=== PATIENT | female | born 1965 | race Caucasian/White ===

== ENCOUNTER 2021-03-25 21:04 | Inpatient (IN) | payer OTHER, SELFPAY ==
--- NOTE | ~2021-03-25 | XR_ITS ---
EXAMINATION: XR chest 1V portable DATE: 04/04/2021 08:58 INDICATION: Shortness of breath. TECHNIQUE: A single frontal view of the chest was obtained. COMPARISON: Chest CT 03/27/2021 FINDINGS: There is a mass involving right perihilar region and right lung upper lobe. There is mild s carring at left lung apex. No pleural effusion or pneumothorax. The heart size is normal. IMPRESSION: 1. Large mass involving right perihilar region and right lung upper lobe, consistent with primary bro nchogenic carcinoma. Ultrasound-guided core needle biopsy of a right supraclavicular lymph node is re commended for diagnosis. Reviewed, dictated and finalized at location A. PASTER IMPRESSION: 1. Large mass involving right perihilar region and right lung upper lobe, consi stent with primary bronchogenic carcinoma. Ultrasound-guided core needle biopsy of a right supraclavicular lymph node is recommended for diagnosis.
--- NOTE | ~2021-03-25 | CT_ITS ---
EXAMINATION: CT chest abdomen pelvis w con EXAM DATE: 03/27/2021 16:23 INDICATION: abnormal chest finding pna vs malignancy abnormal chest x ray. SOB w/ pressure/pain in ce ntral chest/abd . TECHNIQUE: Spiral CT of the chest, abdomen and pelvis was performed following intravenous injection o f 100 mL Omnipaque 350. Axial, coronal and sagittal images chest, abdomen and pelvis were reviewed. Coronal maximum intensity pixel images of chest reviewed. The dose-length product (DLP) for this ex amination was 1534.69 mGy-cm. The exposure was tailored according to patient size (auto mA exposure control), and iterative reconstruction (ASIR) was used as additional dose reduction technique. Compar fish is made to prior examination from 03/25/2021 CT abdomen noncontrast study, chest x-ray 03/26/2021. FINDINGS: CHEST: There is right upper lobe malignancy with invasion of the mediastinum, metastatic mediastinal and right hilar lymphadenopathy. There is mass effect on the SVC and brachiocephalic veins without c omplete occlusion. Invasion of these structures is also possible. Heart normal in size. Faint bilater al peripheral groundglass opacities, nonspecific pneumonitis, possibly COVID 19 pneumonia. Other acut e possibilities include influenza, pulmonary edema or hemorrhage. Some chronic processes that can hav e this appearance include cryptogenic organizing pneumonia, desquamative interstitial pneumonia, nons pecific interstitial pneumonia, drug toxicity, connective tissue disease. Please clinically correlate and test as appropriate. No pleural or pericardial effusions. ABDOMEN PELVIS: The liver, spleen, adrenal glands and pancreas are unremarkable. Gallbladder is unre markable. No biliary obstruction. Punctate left nephrolithiasis.Portal and splenic veins are patent. Kidneys enhance symmetrically. There is no hydronephrosis. Small uterus. The bladder is collaps ed with Benton catheter balloon anchor inside. There is no retroperitoneal or pelvic lymphadenopathy. There is mild to moderate scattered arteriosclerotic disease. The appendix is normal. The stomach and small bowel are unremarkable. There is expected amount of c olonic stool. No free intraperitoneal gas. There are no osteoblastic or osteolytic lesions identi fied. IMPRESSION: 1. Right suprahilar malignancy with mediastinal invasion, mediastinal and right hilar lymphadenopath y, mass effect or possibly invasion of the SVC and brachiocephalic veins. 2. Small peripheral regions of groundglass opacity, nonspecific pneumonitis. Possible COVID pneumoni a. 3. Punctate nephrolithiasis. Reviewed, dictated and finalized at location A. PROCESS MILLER HEAD ASSISTANT IMPRESSION: 1. Right suprahilar malignancy with mediastinal invasion, mediastinal and righ t hilar lymphadenopathy, mass effect or possibly invasion of the SVC and brachi ocephalic veins. 2. Small peripheral regions of groundglass opacity, nonspecific pneumonitis. P ossible COVID pneumonia. 3. Punctate nephrolithiasis.
--- NOTE | ~2021-03-25 | XR_ITS ---
EXAMINATION: XR chest 1V portable DATE: 03/26/2021 00:19 INDICATION: Shortness of breath TECHNIQUE: frontal view of the chest was obtained. COMPARISON: None FINDINGS: Large region of consolidation in the right mid to upper lung zone. No pleural effusion or pneumothora x. The cardiomediastinal silhouette is normal. IMPRESSION: 1. Large region of consolidation in the right mid to upper lung zone with differential including pneu monia, malignancy, right upper lobar collapse or some combination thereof. Consider either contrast-e nhanced CT for further evaluation or short interval radiographic follow-up to document resolution. Reviewed, dictated and finalized at location A. RVISOR ELECTRON[employer] PROCESSING IMPRESSION: 1. Large region of consolidation in the right mid to upper lung zone with diffe rential including pneumonia, malignancy, right upper lobar collapse or some com bination thereof. Consider either contrast-enhanced CT for further evaluation o r short interval radiographic follow-up to document resolution.
--- NOTE | ~2021-03-25 | NM_ITS ---
EXAMINATION: NM hepatobiliary w pharm DATE: 04/03/2021 12:02 INDICATION: Right upper quadrant abdominal pain. COMPARISON: CT abdomen and pelvis 03/27/2021 TECHNIQUE: 5.5 mCi Tc-99m mebrofenin (Choletec) was administered intravenously. Scintigraphic images of the abdomen were obtained for one hour. Then, 1.6 mcg sincalide (Kinevac) IV was administered, an d imaging was continued for 30 minutes. FINDINGS: There is normal clearance of radiotracer from the blood pool. There is homogeneous tracer u ptake by the liver. Activity progresses to the bowel and gallbladder. Gallbladder ejection fraction (GBEF) was 87%. Note that most patients with gallbladder dysfunction have GBEF < 35%, which overlaps with the broad normal range of 10-90%. IMPRESSION: 1. Normal hepatobiliary scintigraphy. Reviewed, dictated and finalized at location A. TING COAL MINER
--- NOTE | ~2021-03-25 | CT_ITS ---
EXAMINATION: CT abdomen pelvis wo con DATE: 03/25/2021 23:29 INDICATION: Abdominal pain. TECHNIQUE: Computed tomography (CT) of the abdomen and pelvis was performed without intravenous contr ast. Automated exposure control and iterative reconstruction technique were employed. The dose-length product was 1161.91 mGy-cm. COMPARISON: None FINDINGS: Lung bases are clear. Heart size is normal. No pericardial or pleural effusion. Mild diffuse hepatic steatosis. Gallbladder, spleen, pancreas and bilateral adrenal glands are normal. Common bile duct is mildly dilated measuring up to 12 mm in maximal diameter. No evident obstructing stone or mass or in trahepatic biliary ductal dilation. 1 mm nonobstructing stone at a lower pole calyx of the right kidn ey and a few stones, the largest measuring up to 2 mm at the lower pole calyces of the left kidney. N o hydronephrosis or stones seen along the normal bilateral ureters. Bladder is normal. Atrophic uteru s and bilateral adnexa are unremarkable. Bowels including the appendix are normal. No free intraperit weaver gas or fluid. No pathologically enlarged abdominal or pelvic lymphadenopathy. IMPRESSION: 1. Bilateral nonobstructing nephrolithiasis. 2. Dilation of the common bile duct to 12 mm without evident obstructing stone or mass or intrahepati c biliary ductal dilation. Correlate with liver function tests and if clinically indicated could cons ider MRCP for further evaluation. Reviewed, dictated and finalized at location A. ED GOODS CONTROLS OPERATOR IMPRESSION: 1. Bilateral nonobstructing nephrolithiasis. 2. Dilation of the common bile duct to 12 mm without evident obstructing stone or mass or intrahepatic biliary ductal dilation. Correlate with liver function tests and if clinically indicated could consider MRCP for further evaluation.
[2021-03-25 21:25] VITALS: BP 138/82; PULSE 118; RESP 22; TEMP 37; O2SAT 96
--- NOTE | 2021-03-25 21:30 | ECG_ITS ---
Measurements Intervals [place] Rate: 121 P: 58 TN: 147 QRS: 55 QRSD: 78 T: 61 QT: 350 QTc: 497 Interpretive Statements SINUS TACHYCARDIA BASELINE ARTIFACT- I, II, III, AVR, AVL, AVF, V1-V6 ABNORMAL ECG Electronically Signed On 03-26-2021 7:13:36 SWISS MACHINIST by Sohail Butler D.O.
[2021-03-25] MEDS: MORPHINE SULFATE (*CRX) 4 MG/ML INJ IV PUSH (21:44)
--- NOTE | 2021-03-25 22:27 | ED.GENADULT ---
HPI - General Adult General Chief complaint: Abdominal Pain Stated complaint: amb Source: patient and EMS Mode of arrival: EMS Limitations: no limitations History of Present Illness HPI narrative: this is a 55-year-old female [facility] presents via [facility] with increased abdominal pain with distention with history of hepatitis-C, with some diarrhea currently no fever chills no chest pain no shortness of breath. Onset (ago): hour(s) Severity: moderate Severity scale (1-10): 8 Quality: aching Pain Consistency: constant Relieving factors: none Exacerbating factors: none Associated symptoms: nausea/vomiting Related Data Allergies Allergy/AdvReac Type Severity Reaction Status Date / Time No Known Allergies Allergy Unverified 04/25/12 17:09 Review of Systems Review of Systems: All systems reviewed & are unremarkable except as noted in HPI and below PMFSH Past Medical History Medical History Hepatitis C Exam Const: General: no acute distress and alert Orientation/consciousness: patient oriented x3 HENMT: Head: normal to inspection Eyes: Conjunctivae: conjunctivae normal Pupils: Equal, round and reactive pupils present Neck: Neck: normal visual inspection and no lymphadenopathy Chest: Chest palpation & inspection: normal inspection of the chest Resp: Effort & Inspection: normal respiratory effort Auscultation: clear to auscultation bilaterally Cardio: Rate: regular rate and tachycardic GI: Inspection: distended GI Palp: Yes Tenderness to palpation present (GI) ( diffusely) and Yes Guarding due to palpation present (GI) : General: Yes no CVA tenderness Urinary Catheter: Urinary Catheter: patent and draining Back/Spine/Pelvis: Back: no CVA tenderness Skin: General skin exam: normal color Rashes: no rashes Neuro: General: patient oriented x3, moves all extremities, no meningeal signs and no focal motor deficits Extrem: General: normal to inspection and no pedal edema Psych: Mental Status: mental status grossly normal Affect: normal affect Course Course Emergency Course: CT scan labs were reviewed with patient Vital Signs Vital signs: Vital Signs Temperature 37.0 C 03/25/21 21:25 Pulse Rate 118 H 03/25/21 21:25 Respiratory Rate 22 H 03/25/21 21:25 Blood Pressure 138/82 03/25/21 21:25 Pulse Oximetry 96 03/25/21 21:25 Temperature 37.0 C 03/25/21 21:25 Pulse Rate 118 H 03/25/21 21:25 Respiratory Rate 22 H 03/25/21 21:25 Blood Pressure 138/82 03/25/21 21:25 Pulse Oximetry 96 03/25/21 21:25 Medical Decision Making Vital Signs Vital Signs: Vital Signs Temperature 37.0 C 03/25/21 21:25 Pulse Rate 118 H 03/25/21 21:25 Respiratory Rate 22 H 03/25/21 21:25 Blood Pressure 138/82 03/25/21 21:25 Pulse Oximetry 96 03/25/21 21:25 Temperature 37.0 C 03/25/21 21:25 Pulse Rate 118 H 03/25/21 21:25 Respiratory Rate 22 H 03/25/21 21:25 Blood Pressure 138/82 03/25/21 21:25 Pulse Oximetry 96 03/25/21 21:25 Critical Care Time Critical Care Time Critical Care Time: No Discharge Plan Discharge Clinical Impression: Acute hypokalemia Pneumonia Qualifiers: Pneumonia type: due to unspecified organism Laterality: right Lung location: middle lobe of lung Qualified Code(s): J18.9 - Pneumonia, unspecified organism Patient Disposition: Acute Care Hospital Condition: Guarded Prognosis Additional Instructions: impression pneumonia/ hypokalemia /abdominal pain Disposition admission acute hospital started on Condition guarded Follow-up/Referrals: Ciara,JERO Bliss [Primary Care Provider] - Time of Disposition: 00:55
[2021-03-25 22:39] LABS: Basophils Absolute Auto 0.01 K/mm3 (0.00-0.10); Basophils Percent Auto 0.1 % (0.0-1.0); Hematocrit 44.2 % (35.0-49.0); Hemoglobin 13.9 g/dL (12.0-15.0); Immature Granulocyte Absolute 0.03 K/mm3 (0.00-0.00); Immature Granulocyte Percent A 0.3 % (0.0-0.0); Lymphocytes Absolute Auto 0.28 K/mm3 (1.10-4.50); Mean Corpuscular HGB Conc 31.4 g/dL (32.0-36.0); Mean Corpuscular Hemoglobin 29.6 pg (27.0-31.0); Mean Corpuscular Volume 94.2 fL (78.0-102.0); Mean Platelet Volume 9.5 fl (9.2-11.8); Monocytes Absolute Auto 0.07 K/mm3 (0.10-0.90); Monocytes Percent Auto 0.7 % (2.0-11.0); Neutrophils Absolute Auto 9.1 K/mm3 (1.7-7.2); Neutrophils Percent Auto 95.9 % (50.0-70.0); Platelet Count Result 284 K/mm3 (150-420); Red Blood Count 4.69 M/mm3 (4.20-5.40); Red Cell Distribution Width 13.1 % (11.6-14.4); White Blood Count 9.5 K/mm3 (4.8-10.8)
[2021-03-25 22:50] LABS: Partial Thromboplastin Time 23.2 SEC (23.90-30.70); Prothrombin Time 10.7 Seconds (9.50-12.10)
--- NOTE | 2021-03-25 22:51 | PC.NURSE ---
Pt resting comfortable on stretcher. reports pain now a 5 on a 1-10 scale. Still unable to give urine sample. To bathroom at this time to try again.
[2021-03-25 22:58] LABS: Lactic Acid Reflex 1.7 mmol/L (0.4-2.0)
[2021-03-25 23:07] LABS: Alanine Aminotransferase 226 U/L (14-59); Albumin Level 3.8 g/dL (3.4-5.0); Alkaline Phosphatase 201 U/L (46-116); Ammonia 19 umol/L (11-32); Anion Gap 12 mmol/L (8-16); Aspartate Amino Transferase 249 U/L (15-37); Bilirubin,Total 1.2 mg/dL (0.00-1.00); Blood Urea Nitrogen 23 mg/dL (7-18); Calcium 10.1 mg/dL (8.5-10.1); Carbon Dioxide 32 mmol/L (21-32); Chloride 96 mmol/L (98-108); Estimated CRCL calculation 54 ml/min; Estimated Glomerular Filt Rate 57; Glucose 155 mg/dL (70-99); Lipase 232 U/L (73-393); Osmolality Calculated 296 mOsm/kg (285-295); Potassium 2.6 mmol/L (3.5-5.1); Sodium 140 mmol/L (136-145); Total Protein 8.8 g/dL (6.4-8.2); Troponin I 4.6 ng/L (0.00-60.4)
--- NOTE | 2021-03-25 23:15 | PC.NURSE ---
Labs back. Pt take to Be Spotted Tech Per W/C.
[2021-03-26] VITALS (18 sets, daily range): BP systolic 106–159; BP diastolic 57–82; PULSE 85–130; RESP 18–26; TEMP 36.1–37.6; O2SAT 89–98; BMI 33.8
[2021-03-26] MEDS: methylPREDNISolone SOD SUCC 125 MG VIAL IV PUSH (00:27)
[2021-03-26] MEDS: KCL 20 MEQ/SW 100 ML 100 ML 50 MEQ IVPB ×3 (00:30→15:20)
--- NOTE | 2021-03-26 00:34 | PC.NURSE ---
K Uli started after Pt placed on Monitor. Pt ST with no ectopics. YOVANI rubin to observe pt breathing pattern. Pt Labored Grunting resp. Ling Sounds diminished on the Rt. N.O. recieved.
--- NOTE | 2021-03-26 00:54 | PC.NURSE ---
Pt to the bathroom for the fifth time. Nothing but dribbles. Bladder scanner was used. Noted 630ml in bladder after five trips. YOVANI Hyde advised order to place [facility] recieved.
[2021-03-26 01:14] LABS: Add Urine Microscopic? YES; Appearance Urine Clear (Clear); Bilirubin Urine 1+ (Negative); Blood Urine Negative (Negative); Color Urine Yellow (Yellow); Glucose Urine UA Negative (Negative); Ketones Urine Negative (Negative); Leukocyte Esterase Ur Negative (Negative); Nitrate Urine Negative (Negative); Protein Urine Negative (Negative); Specific Grav Ur 1.015 (1.010-1.020)
[2021-03-26 01:21] LABS: Amphetamine Screen Urine Negative (Negative); Barbiturate Screen Urine Negative (Negative); Benzodiazepines Screen Urine Negative (Negative); Cannabinoid Screen Urine Negative (Negative); Cocaine Screen Urine Negative (Negative); Methadone Screen Urine Negative (Negative); Opiate Screen Urine Positive (Negative); Phencyclidine Screen Urine Negative (Negative); RBC Urine None seen /hpf (0-2); Squamous Epithelial Cell Urine Rare /hpf (Few); WBC Urine None seen /hpf (0-3)
[2021-03-26 01:24] LABS: SARS-CoV-2 RNA PCR Negative (Negative)
[2021-03-26] MEDS: IPRATROPIUM 0.5 MG/ALBUTEROL SULFATE 2.5 MG AMPUL.NEB 3 ML INHALATION ×5 (01:27→23:12)
--- NOTE | 2021-03-26 01:48 | PC.NURSE ---
Pt report called to Michelle GARCIA. Pt sleeping on stretcher 0 Sor S of adverse reaction.
[2021-03-26] MEDS: SODIUM CHLORIDE 0.9% IV 1,000 ML 100 ML IV CONT ×2 (02:33→13:20)
--- NOTE | 2021-03-26 02:43 | ADMGEN ---
This patient, Gogo Martell, was admitted to 2nd Floor Room 207-2. Patient oriented to hospital policies and general routines including ID bracelet, bed and alarms, visiting hours, pain management, procedures, bathroom and other care routines, personal items, smoking policy, room service/diet, and visiting hours. Information on how to activate the Rapid Response Team has been discussed. Patient/Family are encouraged to report perceived risks to care and to ask questions if they do not understand what they are told or what they should do.
[2021-03-26] MEDS: IBUPROFEN 400 MG TABLET 800 MG PO (05:25)
[2021-03-26] MEDS: LEVOTHYROXINE SODIUM 25 MCG TABLET PO (05:26)
[2021-03-26] MEDS: LEVOTHYROXINE SODIUM 100 MCG TABLET PO (05:27)
[2021-03-26] MEDS: methylPREDNISolone SOD SUCC 40 MG VIAL IV PUSH ×3 (05:28→18:09)
[2021-03-26 06:19] LABS: Basophils Absolute Auto 0.01 K/mm3 (0.00-0.10); Basophils Percent Auto 0.1 % (0.0-1.0); Hematocrit 37.7 % (35.0-49.0); Hemoglobin 12.1 g/dL (12.0-15.0); Immature Granulocyte Absolute 0.05 K/mm3 (0.00-0.00); Immature Granulocyte Percent A 0.4 % (0.0-0.0); Lymphocytes Absolute Auto 0.28 K/mm3 (1.10-4.50); Lymphocytes Percent Auto 2.4 % (18.0-42.0); Mean Corpuscular HGB Conc 32.1 g/dL (32.0-36.0); Mean Corpuscular Volume 93.3 fL (78.0-102.0); Mean Platelet Volume 9.9 fl (9.2-11.8); Monocytes Absolute Auto 0.42 K/mm3 (0.10-0.90); Monocytes Percent Auto 3.5 % (2.0-11.0); Neutrophils Absolute Auto 11.1 K/mm3 (1.7-7.2); Neutrophils Percent Auto 93.6 % (50.0-70.0); Platelet Count Result 235 K/mm3 (150-420); Red Blood Count 4.04 M/mm3 (4.20-5.40); Red Cell Distribution Width 13.2 % (11.6-14.4); White Blood Count 11.9 K/mm3 (4.8-10.8)
[2021-03-26 07:11] LABS: Alanine Aminotransferase 238 U/L (14-59); Albumin Level 3.1 g/dL (3.4-5.0); Alkaline Phosphatase 171 U/L (46-116); Anion Gap 10 mmol/L (8-16); Aspartate Amino Transferase 226 U/L (15-37); Bilirubin,Total 1.7 mg/dL (0.00-1.00); Blood Urea Nitrogen 22 mg/dL (7-18); Calcium 9.5 mg/dL (8.5-10.1); Carbon Dioxide 30 mmol/L (21-32); Chloride 97 mmol/L (98-108); Estimated CRCL calculation 50 ml/min; Estimated Glomerular Filt Rate 51; Glucose 119 mg/dL (70-99); Osmolality Calculated 288 mOsm/kg (285-295); Sodium 137 mmol/L (136-145); Total Protein 7.6 g/dL (6.4-8.2)
[2021-03-26 07:24] LABS: Potassium 2.4 mmol/L (3.5-5.1)
[2021-03-26] MEDS: FLUTICASONE PROPIONATE 0.05% NA SPR 16 GM BTL (*BKC) 2 SPRAY NASAL (09:59)
[2021-03-26] MEDS: NICOTINE (*PBKC) 21 MG PATCH 1 PATCH TRANSDERM (09:59)
[2021-03-26] MEDS: metOLazone 2.5 MG TABLET 5 MG PO (10:00)
[2021-03-26] MEDS: GABAPENTIN 300 MG CAPSULE PO ×3 (10:00→18:10)
[2021-03-26] MEDS: LORATADINE 10 MG TABLET PO (10:00)
[2021-03-26] MEDS: CHOLECALCIFEROL 1,000 UNITS TABLET 2000 UNITS PO (10:00)
[2021-03-26] MEDS: POTASSIUM CHLORIDE 20 MEQ TABLET 40 MEQ PO ×3 (10:00→23:33)
[2021-03-26] MEDS: ENOXAPARIN 40 MG/0.4 ML SYRINGE SUB-Q (10:01)
[2021-03-26] MEDS: clonazePAM (*CRX) 0.5 MG TABLET 1 MG PO ×2 (10:01→18:10)
[2021-03-26] MEDS: PANTOPRAZOLE 40 MG TABLET PO (10:01)
[2021-03-26] MEDS: FUROSEMIDE 40 MG TABLET PO (10:01)
[2021-03-26] MEDS: FLUoxetine HCL 20 MG CAPSULE 40 MG PO (10:01)
[2021-03-26] MEDS: DIVALPROEX SODIUM ER 500 MG TAB.24H PO ×2 (10:01→23:30)
--- NOTE | 2021-03-26 12:59 | PM.IMHP ---
H&P: HPI History of Present Illness Date/Time: 03/26/21 12:59 this is a 55-year-old female presented to our emergency department with complaints of abdominal pain. Patient has a past medical history of hep C. Patient is a poor historian it is unclear where her pain is she is pointing right been near her nipple line but describing it as her chest she does note that her generalized abdominal area is tender she denies any diarrhea. Her abdomen is distended she notes this is not new for her. Blood pressure 115/57, 108, 18, 97.7, 89% with 2 L nasal cannula, WBCs 9.5, hemoglobin 13.9, hematocrit 44.2, platelets 284, sodium 140, potassium 2.6, BUN 23, creatinine 1.0, glucose 155, total bili 1.2, AST 249, ALT 226, ammonia 19, troponin 4.6, UA positive for bili, toxicology positive for opiates, chest x-ray pneumonia CT of the abdomen indicates Bilateral nonobstructing nephrolithiasis. Patient be admitted for pneumonia and hyperkalemia <MICHAEL Crystal - Last Filed: 03/26/21 13:53> Chief Complaint: Abdominal pain <MICHAEL Crystal - Last Filed: 03/26/21 13:53> Review of Systems Review of Systems: A 14 organ system Review of Systems was performed and pertinent positives included in the HPI, otherwise remaining ROS is negative. <MICHAEL Crystal - Last Filed: 03/26/21 13:53> [facility] Past Medical History Medical History: Medical History Hepatitis C <MICHAEL Crystal - Last Filed: 03/26/21 13:53> Family History Family History: Family History (Updated 03/26/21 @ 13:37 by MICHAEL Crystal) Other Family history non-contributory <MICHAEL Crystal - Last Filed: 03/26/21 13:53> Social History Social History: Social History Smoking packs per day: 0.5 Smoking cigarettes per day: 10.0 Smoking status: Current every day smoker Tobacco type: cigarettes Alcohol intake: never Substance use: former Spiritual care concerns: No <Gene Akhtar, DAVID-Bradley - Last Filed: 03/26/21 13:53> Meds Home Medications and Allergies Home medications: Home Medications Medication Instructions Recorded Confirmed Type PNV,calcium [id number] acid 1 tablet PO DAILY 03/26/21 03/26/21 History [ Vitamin Plus Low Iron] acetaminophen 1,000 mg PO TID 03/26/21 03/26/21 History allopurinol 100 mg PO BID 03/26/21 03/26/21 History artificial tears solution 1 drp OPHTHALMIC (EYE) Q6-8H PRN 03/26/21 03/26/21 History bismuth subsalicylate [Stomach See Rx Instructions .ROUTE 03/26/21 03/26/21 History Relief] .COMPLEX PRN cetirizine 10 mg PO DAILY 03/26/21 03/26/21 History cholecalciferol (vitamin D3) 50 mcg PO DAILY 03/26/21 03/26/21 History [Vitamin D3] clonazepam 1 mg PO BID 03/26/21 03/26/21 History cyclobenzaprine 10 mg PO TID PRN 03/26/21 03/26/21 History diphenhydramine HCl [Allergy 50 mg PO HS PRN 03/26/21 03/26/21 History (diphenhydramine)] divalproex 500 mg PO BID 03/26/21 03/26/21 History fluoxetine 40 mg PO DAILY 03/26/21 03/26/21 History fluticasone propionate 2 spray INTRANASAL DAILY 03/26/21 03/26/21 History furosemide 40 mg PO DAILY 03/26/21 03/26/21 History gabapentin 300 mg PO TID 03/26/21 03/26/21 History ibuprofen 800 mg PO TID PRN 03/26/21 03/26/21 History levothyroxine 125 mcg PO DAILY 03/26/21 03/26/21 History loperamide [Imodium] 2 mg PO Q4H PRN 03/26/21 03/26/21 History magnesium hydroxide [Milk of 15 ml PO DAILY PRN 03/26/21 03/26/21 History Magnesia] melatonin 10 mg PO HS PRN 03/26/21 03/26/21 History metolazone 5 mg PO DAILY 03/26/21 03/26/21 History nicotine 1 patch TRANSDERMAL DAILY 03/26/21 03/26/21 History omeprazole 20 mg PO DAILY 03/26/21 03/26/21 History potassium chloride 40 meq PO BID 03/26/21 03/26/21 History sennosides [senna] 8.6 mg PO DAILY PRN 03/26/21 03/26/21 History simethicone 80 mg PO Q6-8H PRN 03/26/21
[2021-03-26] MEDS: ACETAMINOPHEN 325 MG TABLET 650 MG PO (13:19)
[2021-03-26] MEDS: HYDROcodone/acetaminophen (*CRX) 10-325 MG TABLET 1 TAB PO (18:09)
--- NOTE | 2021-03-26 18:30 | PC.NURSE ---
Patient brother Aki called per pt request to speak with him, no answer, messaged left.
[2021-03-26 20:41] LABS: Amphetamine Screen Urine Negative (Negative); Barbiturate Screen Urine Negative (Negative); Benzodiazepines Screen Urine Negative (Negative); Cannabinoid Screen Urine Negative (Negative); Cocaine Screen Urine Negative (Negative); Methadone Screen Urine Negative (Negative); Opiate Screen Urine Positive (Negative); Phencyclidine Screen Urine Negative (Negative)
[2021-03-27] VITALS (12 sets, daily range): BP systolic 99–123; BP diastolic 58–95; PULSE 58–118; RESP 18–89; TEMP 36–36.2; O2SAT 6–98
[2021-03-27] MEDS: methylPREDNISolone SOD SUCC 40 MG VIAL IV PUSH ×3 (00:11→12:13)
[2021-03-27] MEDS: HYDROcodone/acetaminophen (*CRX) 10-325 MG TABLET 1 TAB PO ×4 (00:12→18:02)
--- NOTE | 2021-03-27 01:42 | PC.NURSE ---
0142--Patient is currently sleeping. Unable to assess pain at this time.
[2021-03-27] MEDS: SODIUM CHLORIDE 0.9% IV 1,000 ML 100 ML IV CONT ×2 (02:04→15:57)
[2021-03-27] MEDS: LEVOTHYROXINE SODIUM 100 MCG TABLET PO (05:33)
[2021-03-27] MEDS: LEVOTHYROXINE SODIUM 25 MCG TABLET PO (05:33)
[2021-03-27] MEDS: IPRATROPIUM 0.5 MG/ALBUTEROL SULFATE 2.5 MG AMPUL.NEB 3 ML INHALATION ×3 (06:09→18:41)
[2021-03-27 06:17] LABS: Hematocrit 33.8 % (35.0-49.0); Hemoglobin 10.7 g/dL (12.0-15.0); Mean Corpuscular HGB Conc 31.7 g/dL (32.0-36.0); Mean Corpuscular Hemoglobin 29.9 pg (27.0-31.0); Mean Corpuscular Volume 94.4 fL (78.0-102.0); Platelet Count Result 218 K/mm3 (150-420); Red Blood Count 3.58 M/mm3 (4.20-5.40); Red Cell Distribution Width 13.3 % (11.6-14.4); White Blood Count 14.7 K/mm3 (4.8-10.8)
[2021-03-27 06:31] LABS: Hemoglobin A1C 5.8 % (<5.7)
[2021-03-27 07:09] LABS: Alanine Aminotransferase 324 U/L (14-59); Albumin Level 2.5 g/dL (3.4-5.0); Alkaline Phosphatase 160 U/L (46-116); Anion Gap 10 mmol/L (8-16); Aspartate Amino Transferase 177 U/L (15-37); Bilirubin,Total 0.7 mg/dL (0.00-1.00); Blood Urea Nitrogen 27 mg/dL (7-18); Calcium 8.9 mg/dL (8.5-10.1); Carbon Dioxide 27 mmol/L (21-32); Chloride 102 mmol/L (98-108); Estimated CRCL calculation 61 ml/min; Estimated Glomerular Filt Rate > 60; Folic Acid 13.4 ng/mL (8.6->20); Glucose 154 mg/dL (70-99); Magnesium 2.1 mg/dL (1.8-2.4); Osmolality Calculated 296 mOsm/kg (285-295); Potassium 3.1 mmol/L (3.5-5.1); Sodium 139 mmol/L (136-145); Total Protein 6.7 g/dL (6.4-8.2); Vitamin B12 572 pg/mL (193-986)
[2021-03-27 07:27] LABS: Cholesterol 164 mg/dL (0-200); Free T4 Free Thyroxine 1.26 ng/dL (0.76-1.46); HDL Direct 47 mg/dL (40-60); LDL Cholesterol Calculated 107 mg/dL (<130); Thyroid Stimulating Hormone 0.04 uIU/mL (0.36-3.74); Triglycerides 51 mg/dL (0-150)
[2021-03-27] MEDS: GABAPENTIN 300 MG CAPSULE PO ×3 (08:53→12:13)
[2021-03-27] MEDS: POTASSIUM CHLORIDE 20 MEQ TABLET 40 MEQ PO ×4 (08:54→18:01)
[2021-03-27] MEDS: CHOLECALCIFEROL 1,000 UNITS TABLET 2000 UNITS PO (08:56)
[2021-03-27] MEDS: DIVALPROEX SODIUM ER 500 MG TAB.24H PO ×2 (08:57→20:43)
[2021-03-27] MEDS: PANTOPRAZOLE 40 MG TABLET PO (08:57)
[2021-03-27] MEDS: clonazePAM (*CRX) 0.5 MG TABLET 1 MG PO ×2 (08:58→18:01)
[2021-03-27] MEDS: CYCLOBENZAPRINE HCL 10 MG TABLET PO ×2 (08:59→18:01)
[2021-03-27] MEDS: metOLazone 2.5 MG TABLET 5 MG PO (08:59)
[2021-03-27] MEDS: FUROSEMIDE 40 MG TABLET PO (08:59)
[2021-03-27] MEDS: LORATADINE 10 MG TABLET PO (09:00)
[2021-03-27] MEDS: ENOXAPARIN 40 MG/0.4 ML SYRINGE SUB-Q (09:00)
[2021-03-27] MEDS: NICOTINE (*PBKC) 21 MG PATCH 1 PATCH TRANSDERM ×2 (09:01)
[2021-03-27] MEDS: FLUoxetine HCL 20 MG CAPSULE 40 MG PO (09:02)
[2021-03-27] MEDS: FLUTICASONE PROPIONATE 0.05% NA SPR 16 GM BTL (*BKC) 2 SPRAY NASAL ×2 (09:02→09:08)
--- NOTE | 2021-03-27 13:06 | WPDPN ---
Progress Note: A&P Assessment and Plan (1) Pneumonia: Qualifiers: Laterality: right Lung location: middle lobe of lung Pneumonia type: due to unspecified organism Qualified Code(s): J18.9 - Pneumonia, unspecified organism Code(s): J18.9 - Pneumonia, unspecified organism Status: Acute Assessment and Plan: Chest x-ray indicate pneumonia CT recommended to rule out malignancy Continues with azithromycin and Rocephin day 2, duo nebulizer and Solu-Medrol Blood culture collected after antibiotic treatment WBCs 9.5>11.9>14.7 possible increased due to steroid use Lactic acid 1.7 CT of the chest pending (2) Acute hypokalemia: Code(s): E87.6 - Hypokalemia Status: Acute Assessment and Plan: Potassium2.6>2.4>3.1 Continue supplement Repeat in the a.m. (3) Hepatitis C: Code(s): B19.20 - Unspecified viral hepatitis C without hepatic coma Status: Acute Assessment and Plan: Avoid hepatotoxic agents Total bili 1.2>1.7>0.7, AIE219>226>177, NEW681>238>324 Will trend (4) Nephrolithiasis: Code(s): N20.0 - Calculus of kidney Status: Acute Assessment and Plan: CT of the abdomen indicates Dilation of the common bile duct to 12 mm without evident obstructing stone or mass or intrahepatic biliary ductal dilation. Correlate with liver function tests and if clinically indicated could consider MRCP for further evaluation. MARCY peter (5) Tachycardia: Code(s): R00.0 - Tachycardia, unspecified Status: Acute Assessment and Plan: Chronic According to patient she has had tachycardia since her teenage years she notes that her heart rate goes as high as 120 her primary care physician is aware and has not attempted to treat. Patient declines any treatment Subjective Date/time seen: 03/27/21 13:06 patient continues to complain of bilateral upper abdominal quadrant pain. She did note that her pain is being controlled with the medication. She has no other complaints at this time. The patient denies SOB, CP, palpitation, extremity numbness, lightheadedness, dizziness, constipation, diarrhea, chills, or fever. Review of Systems Review of Systems: A 14 organ system Review of Systems was performed and pertinent positives included in the HPI, otherwise remaining ROS is negative. Exam Narrative: GENERAL: This is a well-nourished, well-developed patient, in no apparent distress. HEAD: normocephalic, atraumatic. EYES: PERRL. Sclera clear/white. Vision is grossly intact. EARS: External ears normal, auditory canals clear and without drainage, TMs normal without perforation. Hearing grossly intact. NOSE: External nose normal with no obvious nasal discharge, nares without redness, no rhinorrhea. THROAT: Mucous membranes moist, posterior pharynx clear. NECK: Neck supple, non-tender without lymphadenopathy, masses or thyromegaly. CARDIOVASCULAR: Regular rate and rhythm without murmurs, gallops, or rubs. RESPIRATORY: Clear to auscultation. Breath sounds equal bilaterally. No wheezes, rales, or rhonchi. GASTROINTESTINAL: Abdomen hard, tender upper bilateral quadrant l area, distended. Bowel sounds are active. No guarding. SKIN: warm, intact with no suspicious lesions or rash, good texture and turgor. NEURO: awake, alert, and oriented to person, place and time. There were no obvious focal neurologic abnormalities. Steady gait EXTREMITIES: Normal range of motion. No edema. No calf tenderness. Negative Homans sign bilaterally. BACK: Nontender without deformity or crepitance. No flank tenderness. Objective Data Vital Signs Vital Signs: Vital Signs - 24 hr 03/26/21 13:17 03/26/21 13:23 03/26/21 15:40 Temperature 97 F L Pulse Rate 100 100 100 Respiratory Rate 18 18 18 Blood Pressure 106/71 Pulse Oximetry 94 98 96 03/26/21 16:15 03/26/21 18:10 03/26/21 18:15 Temperature Pulse Rate 100 102 H 100 Respiratory Rate 18 18 Blood Press
[2021-03-27 17:58] LABS: SARS-CoV-2 RNA PCR Negative (Negative)
[2021-03-27] MEDS: allopurinoL 100 MG TABLET PO (18:01)
--- NOTE | 2021-03-27 19:00 | PC.NURSE ---
Completed change of shift report. Patient is resting in bed, states she is in pain, even though she received pain medication and a muscle relaxant about 1 hour ago. Patient states that her abdomen is hurting. Patient was given a warm blanket to place over her abdomen, and was reassured that she would be closely monitored to make sure she feels better.
[2021-03-27] MEDS: MORPHINE SULFATE (*CRX) 2 MG/ML INJ IV PUSH (21:15)
--- NOTE | 2021-03-27 22:00 | PC.NURSE ---
Completed patient rounding. Patient is sleeping comfortably in bed, with no signs of pain or discomfort.
[2021-03-28] VITALS (12 sets, daily range): BP systolic 109–117; BP diastolic 68–70; PULSE 65–116; RESP 14–22; TEMP 36.2–36.6; O2SAT 88–100
[2021-03-28] MEDS: IPRATROPIUM 0.5 MG/ALBUTEROL SULFATE 2.5 MG AMPUL.NEB 3 ML INHALATION ×4 (00:05→18:23)
[2021-03-28] MEDS: IBUPROFEN 400 MG TABLET 800 MG PO ×2 (01:09→09:03)
[2021-03-28] MEDS: CYCLOBENZAPRINE HCL 10 MG TABLET PO ×2 (01:11→16:43)
--- NOTE | 2021-03-28 02:00 | PC.NURSE ---
Completed patient rounding. Patient is coughing, and attempting to cough up phlegm. Patient states it's what I do every day , and indicated that she did not need anything else at this time.
--- NOTE | 2021-03-28 04:00 | PC.NURSE ---
Patient is scheduled for a hidascan today. She last had a narcotic pain reliever at 2114. She is NPO as of 399. Her water was removed from her bedside, and she was reminded of the order to not eat or drink until after her procedure.
[2021-03-28 05:41] LABS: Hematocrit 36.1 % (35.0-49.0); Hemoglobin 11.2 g/dL (12.0-15.0); Mean Corpuscular Hemoglobin 29.6 pg (27.0-31.0); Mean Corpuscular Volume 95.5 fL (78.0-102.0); Mean Platelet Volume 9.9 fl (9.2-11.8); Platelet Count Result 247 K/mm3 (150-420); Red Blood Count 3.78 M/mm3 (4.20-5.40); Red Cell Distribution Width 13.7 % (11.6-14.4); White Blood Count 14.3 K/mm3 (4.8-10.8)
[2021-03-28 05:56] LABS: Alanine Aminotransferase 239 U/L (14-59); Albumin Level 2.6 g/dL (3.4-5.0); Alkaline Phosphatase 146 U/L (46-116); Anion Gap 8 mmol/L (8-16); Aspartate Amino Transferase 53 U/L (15-37); Bilirubin,Total 0.3 mg/dL (0.00-1.00); Blood Urea Nitrogen 30 mg/dL (7-18); Calcium 9.5 mg/dL (8.5-10.1); Carbon Dioxide 30 mmol/L (21-32); Chloride 105 mmol/L (98-108); Estimated CRCL calculation 69 ml/min; Estimated Glomerular Filt Rate > 60; Glucose 103 mg/dL (70-99); Osmolality Calculated 302 mOsm/kg (285-295); Potassium 3.6 mmol/L (3.5-5.1); Sodium 143 mmol/L (136-145); Total Protein 6.6 g/dL (6.4-8.2)
[2021-03-28] MEDS: LEVOTHYROXINE SODIUM 100 MCG TABLET PO (06:25)
[2021-03-28] MEDS: LEVOTHYROXINE SODIUM 25 MCG TABLET PO (06:25)
[2021-03-28] MEDS: ENOXAPARIN 40 MG/0.4 ML SYRINGE SUB-Q (08:58)
[2021-03-28] MEDS: methylPREDNISolone SOD SUCC 40 MG VIAL IV PUSH (08:58)
[2021-03-28] MEDS: FUROSEMIDE 40 MG TABLET PO (09:05)
[2021-03-28] MEDS: CHOLECALCIFEROL 1,000 UNITS TABLET 2000 UNITS PO (09:05)
[2021-03-28] MEDS: metOLazone 2.5 MG TABLET 5 MG PO (09:07)
[2021-03-28] MEDS: LORATADINE 10 MG TABLET PO (09:07)
[2021-03-28] MEDS: allopurinoL 100 MG TABLET PO ×2 (09:08→16:41)
[2021-03-28] MEDS: clonazePAM (*CRX) 0.5 MG TABLET 1 MG PO ×2 (09:08→16:42)
[2021-03-28] MEDS: POTASSIUM CHLORIDE 20 MEQ TABLET 40 MEQ PO ×2 (09:09→16:42)
[2021-03-28] MEDS: DIVALPROEX SODIUM ER 500 MG TAB.24H PO ×2 (09:10→20:58)
[2021-03-28] MEDS: PANTOPRAZOLE 40 MG TABLET PO (09:10)
[2021-03-28] MEDS: FLUoxetine HCL 20 MG CAPSULE 40 MG PO (09:11)
[2021-03-28] MEDS: GABAPENTIN 300 MG CAPSULE PO ×3 (09:11→16:42)
[2021-03-28] MEDS: metroNIDAZOLE 500 MG/ISO 100ML 500 MG/100 ML BAG 100 MG IVPB ×2 (12:41→18:24)
[2021-03-28] MEDS: SACCHAROMYCES BOULARDII 250 MG CAPSULE PO ×2 (15:01→16:41)
--- NOTE | 2021-03-28 15:21 | P.PNIM_ITS ---
Progress Note: A&P Assessment and Plan (1) Pneumonia: Qualifiers: Laterality: right Lung location: middle lobe of lung Pneumonia type: due to unspecified organism Qualified Code(s): J18.9 - Pneumonia, unspecified organism <Bayron HopperKAREN - Last Filed: 03/28/21 15:39> Code(s): J18.9 - Pneumonia, unspecified organism <Bayron HopperSWATHIC - Last Filed: 03/28/21 15:39> Status: Acute <Bayron Hopper COMMERCIAL TECHNICIAN-C - Last Filed: 03/28/21 15:39> Assessment and Plan: * Chest x-ray indicate pneumonia CT recommended to rule out malignancy * Continues with azithromycin and Rocephin day 2, duo nebulizer and Solu-Medrol * Blood culture collected after antibiotic treatment * WBCs 9.5>11.9>14.7 possible increased due to steroid use * Lactic acid 1.7 * CT of the chest pending 03/28/2021 CT Chest/Abd/Pel: IMPRESSION: 1. Right suprahilar malignancy with mediastinal invasion, mediastinal and right hilar lymphadenopathy, mass effect or possibly invasion of the SVC and brachiocephalic veins. 2. Small peripheral regions of groundglass opacity, nonspecific pneumonitis. Possible COVID pneumonia. 3. Punctate nephrolithiasis. Pt was informed, she is currently on a wait list at [facility] and [facility] systems. <Bayron HopperKAREN - Last Filed: 03/28/21 15:39> (2) Acute hypokalemia: Code(s): E87.6 - Hypokalemia <Bayron HopperSWATHIC - Last Filed: 03/28/21 15:39> Status: Acute <Bayron HopperMARCIA-Bradley - Last Filed: 03/28/21 15:39> Assessment and Plan: * Potassium2.6>2.4>3.1 * Continue supplement * Repeat in the a.m. 03/28/2021 K 3.6 today, will continue to monitor <Bayron HopperKAREN - Last Filed: 03/28/21 15:39> (3) Hepatitis C: Code(s): B19.20 - Unspecified viral hepatitis C without hepatic coma <Bayron HopperMARCIA-C - Last Filed: 03/28/21 15:39> Status: Acute <Bayron Hopper COMMERCIAL TECHNICIAN-C - Last Filed: 03/28/21 15:39> Assessment and Plan: * Avoid hepatotoxic agents * Total bili 1.2>1.7>0.7, FAO233>226>177, QXE002>238>324 * Will trend 03/28/2021 AST/ALT 53/239, very tender RUQ <Bayron Hopper COMMERCIAL TECHNICIAN-C - Last Filed: 03/28/21 15:39> (4) Nephrolithiasis: Code(s): N20.0 - Calculus of kidney <Bayron HopperMARCIA-C - Last Filed: 03/28/21 15:39> Status: Acute <Bayron Hopper COMMERCIAL TECHNICIAN-C - Last Filed: 03/28/21 15:39> Assessment and Plan: * CT of the abdomen indicates Dilation of the common bile duct to 12 mm without evident obstructing stone or mass or intrahepatic biliary ductal dilation. Correlate with liver function tests and if clinically indicated could consider MRCP for further evaluation. * HIDA pending 03/28/2021 HIDA was cancelled while attempting to get Pt transferred, it was felt a ERCP or MRCP would be more effective. <Bayron HopperMARCIA-C - Last Filed: 03/28/21 15:39> (5) Tachycardia: Code(s): R00.0 - Tachycardia, unspecified <Bayron HopperMARCIA-C - Last Filed: 03/28/21 15:39> Status: Acute <Bayron HopperMARCIA-C - Last Filed: 03/28/21 15:39> Assessment and Plan: * Chronic * According to patient she has had tachycardia since her teenage years she notes that her heart rate goes as high as 120 her primary care physician is aware and has not attempted to treat. * Patient declines any treatment 03/28/2021 HR is from 60s to 100s <Bayron LujanMARCIA ford-C - Last Filed: 03/28/21 15:39> Additional Plan 55-year-old female, smoker was noted to have a right upper lobe /right middle lobe pneumonia / mass with mediastinal lymph
--- NOTE | 2021-03-28 15:21 | PM.IMPN ---
Progress Note: A&P Assessment and Plan (1) Pneumonia: Qualifiers: Laterality: right Lung location: middle lobe of lung Pneumonia type: due to unspecified organism Qualified Code(s): J18.9 - Pneumonia, unspecified organism <Bayron HopperKAREN - Last Filed: 03/28/21 15:39> Code(s): J18.9 - Pneumonia, unspecified organism <Bayron LujanKAREN ford - Last Filed: 03/28/21 15:39> Status: Acute <Bayron HopperKAREN - Last Filed: 03/28/21 15:39> Assessment and Plan: Chest x-ray indicate pneumonia CT recommended to rule out malignancy Continues with azithromycin and Rocephin day 2, duo nebulizer and Solu-Medrol Blood culture collected after antibiotic treatment WBCs 9.5>11.9>14.7 possible increased due to steroid use Lactic acid 1.7 CT of the chest pending 03/28/2021 CT Chest/Abd/Pel: IMPRESSION: 1. Right suprahilar malignancy with mediastinal invasion, mediastinal and right hilar lymphadenopathy, mass effect or possibly invasion of the SVC and brachiocephalic veins. 2. Small peripheral regions of groundglass opacity, nonspecific pneumonitis. Possible COVID pneumonia. 3. Punctate nephrolithiasis. Pt was informed, she is currently on a wait list at [facility] and [facility] systems. <Bayron LujanKAREN ford - Last Filed: 03/28/21 15:39> (2) Acute hypokalemia: Code(s): E87.6 - Hypokalemia <Bayron LujanKAREN ford - Last Filed: 03/28/21 15:39> Status: Acute <Bayron LujanKAREN ford - Last Filed: 03/28/21 15:39> Assessment and Plan: Potassium2.6>2.4>3.1 Continue supplement Repeat in the a.m. 03/28/2021 K 3.6 today, will continue to monitor <Bayron Gonzales KAREN Hopper - Last Filed: 03/28/21 15:39> (3) Hepatitis C: Code(s): B19.20 - Unspecified viral hepatitis C without hepatic coma <Bayron Gonzales KAREN Hopper - Last Filed: 03/28/21 15:39> Status: Acute <Bayron LujanKAREN ford - Last Filed: 03/28/21 15:39> Assessment and Plan: Avoid hepatotoxic agents Total bili 1.2>1.7>0.7, HAK176>226>177, IKN850>238>324 Will trend 03/28/2021 AST/ALT 53/239, very tender RUQ <Bayron Gonzales KAREN Hopper - Last Filed: 03/28/21 15:39> (4) Nephrolithiasis: Code(s): N20.0 - Calculus of kidney <Bayron SaezKAREN Lopez - Last Filed: 03/28/21 15:39> Status: Acute <Bayron Gonzales KAREN Hopper - Last Filed: 03/28/21 15:39> Assessment and Plan: CT of the abdomen indicates Dilation of the common bile duct to 12 mm without evident obstructing stone or mass or intrahepatic biliary ductal dilation. Correlate with liver function tests and if clinically indicated could consider MRCP for further evaluation. HIDA pending 03/28/2021 HIDA was cancelled while attempting to get Pt transferred, it was felt a ERCP or MRCP would be more effective. <Bayron SaezKAREN Lopez - Last Filed: 03/28/21 15:39> (5) Tachycardia: Code(s): R00.0 - Tachycardia, unspecified <Bayron SaezKAREN Lopez - Last Filed: 03/28/21 15:39> Status: Acute <Bayron SaezKAREN Lopez - Last Filed: 03/28/21 15:39> Assessment and Plan: Chronic According to patient she has had tachycardia since her teenage years she notes that her heart rate goes as high as 120 her primary care physician is aware and has not attempted to treat. Patient declines any treatment 03/28/2021 HR is from 60s to 100s <Bayron NadjaKAREN Lopez - Last Filed: 03/28/21 15:39> Additional Plan 55-year-old female, smoker was noted to have a right upper lobe /right middle lobe pneumonia / mass with mediastinal lymphadenopathy. The patient was also noted to have common bile duct enlargement. Would like the patient transferred to a content management specialist for biopsy and staging. The patient is noted to have a common bile duct dilatation following which his antibiotics ceftriaxone and Zithromax have been discontinued and the patient is treated with cefepime and
[2021-03-28] MEDS: HYDROcodone/acetaminophen (*CRX) 10-325 MG TABLET 1 TAB PO (15:58)
[2021-03-28] MEDS: MORPHINE SULFATE (*CRX) 2 MG/ML INJ IV PUSH (18:22)
[2021-03-28] MEDS: MELATONIN 5 MG TABLET 10 MG PO (20:58)
[2021-03-29] VITALS (10 sets, daily range): BP systolic 113–119; BP diastolic 64–82; PULSE 51–112; RESP 18–20; TEMP 36.2–36.8; O2SAT 89–98
[2021-03-29] MEDS: metroNIDAZOLE 500 MG/ISO 100ML 500 MG/100 ML BAG 100 MG IVPB ×5 (00:16→23:55)
[2021-03-29] MEDS: HYDROcodone/acetaminophen (*CRX) 10-325 MG TABLET 1 TAB PO ×4 (00:16→22:04)
[2021-03-29] MEDS: IPRATROPIUM 0.5 MG/ALBUTEROL SULFATE 2.5 MG AMPUL.NEB 3 ML INHALATION ×4 (00:35→20:04)
[2021-03-29] MEDS: MORPHINE SULFATE (*CRX) 2 MG/ML INJ IV PUSH ×2 (03:26→12:44)
[2021-03-29 05:23] LABS: Hematocrit 38.8 % (35.0-49.0); Mean Corpuscular HGB Conc 30.9 g/dL (32.0-36.0); Mean Corpuscular Hemoglobin 29.3 pg (27.0-31.0); Mean Corpuscular Volume 94.9 fL (78.0-102.0); Mean Platelet Volume 9.9 fl (9.2-11.8); Platelet Count Result 264 K/mm3 (150-420); Red Blood Count 4.09 M/mm3 (4.20-5.40); Red Cell Distribution Width 13.7 % (11.6-14.4); White Blood Count 11.1 K/mm3 (4.8-10.8)
[2021-03-29 05:37] LABS: Anion Gap 9 mmol/L (8-16); Blood Urea Nitrogen 35 mg/dL (7-18); Calcium 9.4 mg/dL (8.5-10.1); Carbon Dioxide 31 mmol/L (21-32); Chloride 102 mmol/L (98-108); Estimated CRCL calculation 61 ml/min; Estimated Glomerular Filt Rate > 60; Glucose 83 mg/dL (70-99); Osmolality Calculated 301 mOsm/kg (285-295); Potassium 3.7 mmol/L (3.5-5.1); Sodium 142 mmol/L (136-145)
[2021-03-29] MEDS: LEVOTHYROXINE SODIUM 100 MCG TABLET PO (06:05)
[2021-03-29] MEDS: LEVOTHYROXINE SODIUM 25 MCG TABLET PO (06:08)
[2021-03-29] MEDS: IBUPROFEN 400 MG TABLET 800 MG PO (06:09)
[2021-03-29 07:34] LABS: Valproic Acid 38.2 mg/L (50.0-100.0)
[2021-03-29] MEDS: methylPREDNISolone SOD SUCC 40 MG VIAL IV PUSH (08:07)
[2021-03-29] MEDS: NICOTINE (*PBKC) 21 MG PATCH 1 PATCH TRANSDERM (08:09)
[2021-03-29] MEDS: ENOXAPARIN 40 MG/0.4 ML SYRINGE SUB-Q (08:11)
[2021-03-29] MEDS: clonazePAM (*CRX) 0.5 MG TABLET 1 MG PO ×2 (08:12→17:01)
[2021-03-29] MEDS: CHOLECALCIFEROL 1,000 UNITS TABLET 2000 UNITS PO (08:13)
[2021-03-29] MEDS: POTASSIUM CHLORIDE 20 MEQ TABLET 40 MEQ PO ×2 (08:14→17:02)
[2021-03-29] MEDS: FUROSEMIDE 40 MG TABLET PO (08:15)
[2021-03-29] MEDS: DIVALPROEX SODIUM ER 500 MG TAB.24H PO ×2 (08:15→21:58)
[2021-03-29] MEDS: LORATADINE 10 MG TABLET PO (08:16)
[2021-03-29] MEDS: metOLazone 2.5 MG TABLET 5 MG PO (08:16)
[2021-03-29] MEDS: allopurinoL 100 MG TABLET PO ×2 (08:17→18:03)
[2021-03-29] MEDS: PANTOPRAZOLE 40 MG TABLET PO (08:18)
[2021-03-29] MEDS: GABAPENTIN 300 MG CAPSULE PO ×3 (08:18→17:01)
[2021-03-29] MEDS: FLUoxetine HCL 20 MG CAPSULE 40 MG PO (08:18)
[2021-03-29] MEDS: SACCHAROMYCES BOULARDII 250 MG CAPSULE PO ×3 (08:19→17:03)
[2021-03-29] MEDS: FLUTICASONE PROPIONATE 0.05% NA SPR 16 GM BTL (*BKC) 2 SPRAY NASAL (08:19)
[2021-03-29 11:32] LABS: Vitamin D 25 Hydroxy 56 ng/mL (30-100)
--- NOTE | 2021-03-29 13:02 | P.PNIM_ITS ---
Progress Note: A&P Assessment and Plan (1) Pneumonia: Qualifiers: Laterality: right Lung location: middle lobe of lung Pneumonia type: due to unspecified organism Qualified Code(s): J18.9 - Pneumonia, unspecified organism <Bayron HopperKAREN - Last Filed: 03/29/21 13:41> Code(s): J18.9 - Pneumonia, unspecified organism <Bayron HopperKAREN - Last Filed: 03/29/21 13:41> Status: Acute <Bayron HopperSWATHIC - Last Filed: 03/29/21 13:41> Assessment and Plan: * Chest x-ray indicate pneumonia CT recommended to rule out malignancy * Continues with azithromycin and Rocephin day 2, duo nebulizer and Solu-Medrol * Blood culture collected after antibiotic treatment * WBCs 9.5>11.9>14.7 possible increased due to steroid use * Lactic acid 1.7 * CT of the chest pending 03/28/2021 CT Chest/Abd/Pel: IMPRESSION: 1. Right suprahilar malignancy with mediastinal invasion, mediastinal and right hilar lymphadenopathy, mass effect or possibly invasion of the SVC and brachiocephalic veins. 2. Small peripheral regions of groundglass opacity, nonspecific pneumonitis. Possible COVID pneumonia. 3. Punctate nephrolithiasis. Pt was informed, she is currently on a wait list at [facility] and [facility] systems. 03/29/2021 Continue with Cefepime and Flagyl, remains on 2 L/min NC w/ SpO2 96% <Bayron LujanKAREN ford - Last Filed: 03/29/21 13:41> (2) Acute hypokalemia: Code(s): E87.6 - Hypokalemia <Bayron LujanKAREN ford - Last Filed: 03/29/21 13:41> Status: Acute <Bayron HopperKAREN - Last Filed: 03/29/21 13:41> Assessment and Plan: * Potassium2.6>2.4>3.1 * Continue supplement * Repeat in the a.m. 03/28/2021 K 3.6 today, will continue to monitor 03/29/2021 K 3.7, appears resolved but will still monitor <Bayron HopperMARCIA-C - Last Filed: 03/29/21 13:41> (3) Hepatitis C: Code(s): B19.20 - Unspecified viral hepatitis C without hepatic coma <Bayron Hopper MANIPULATIVE THERAPY SPECIALIST-C - Last Filed: 03/29/21 13:41> Status: Acute <Bayron HopperMARCIA-C - Last Filed: 03/29/21 13:41> Assessment and Plan: * Avoid hepatotoxic agents * Total bili 1.2>1.7>0.7, ACR624>226>177, YCF813>238>324 * Will trend 03/28/2021 AST/ALT 53/239, very tender RUQ 03/29/2021 No abdominal pain on palpation today, Pt did just get pain medications <Bayron HopperKRISTIN-C - Last Filed: 03/29/21 13:41> (4) Nephrolithiasis: Code(s): N20.0 - Calculus of kidney <Bayron HopperMARCIA-C - Last Filed: 03/29/21 13:41> Status: Acute <Bayron HopperKRISTIN-C - Last Filed: 03/29/21 13:41> Assessment and Plan: * CT of the abdomen indicates Dilation of the common bile duct to 12 mm without evident obstructing stone or mass or intrahepatic biliary ductal dilation. Correlate with liver function tests and if clinically indicated could consider MRCP for further evaluation. * HIDA pending 03/28/2021 HIDA was cancelled while attempting to get Pt transferred, it was felt a ERCP or MRCP would be more effective. 03/29/2021 awaiting transfer where Pt can have a ERCP or MRCP <Bayron LujanMARCIA ford-C - Last Filed: 03/29/21 13:41> (5) Tachycardia: Code(s): R00.0 - Tachycardia, unspecified <Bayron HopperMARCIA-C - Last Filed: 03/29/21 13:41> Status: Acute <Bayron HopperMARCIA-C - Last Filed: 03/29/21 13:41> Assessment and Plan: * Chronic * According to patient she has had tachycardia since her teenage years she notes that her heart rate goes as high as 120 her primary care physician is aware and has not attempt
--- NOTE | 2021-03-29 13:02 | PM.IMPN ---
Progress Note: A&P Assessment and Plan (1) Pneumonia: Qualifiers: Laterality: right Lung location: middle lobe of lung Pneumonia type: due to unspecified organism Qualified Code(s): J18.9 - Pneumonia, unspecified organism <Bayron Gonzales KAREN Hopper - Last Filed: 03/29/21 13:41> Code(s): J18.9 - Pneumonia, unspecified organism <Bayron Gonzales KAREN Hopper - Last Filed: 03/29/21 13:41> Status: Acute <Bayron LujanAKREN ford - Last Filed: 03/29/21 13:41> Assessment and Plan: Chest x-ray indicate pneumonia CT recommended to rule out malignancy Continues with azithromycin and Rocephin day 2, duo nebulizer and Solu-Medrol Blood culture collected after antibiotic treatment WBCs 9.5>11.9>14.7 possible increased due to steroid use Lactic acid 1.7 CT of the chest pending 03/28/2021 CT Chest/Abd/Pel: IMPRESSION: 1. Right suprahilar malignancy with mediastinal invasion, mediastinal and right hilar lymphadenopathy, mass effect or possibly invasion of the SVC and brachiocephalic veins. 2. Small peripheral regions of groundglass opacity, nonspecific pneumonitis. Possible COVID pneumonia. 3. Punctate nephrolithiasis. Pt was informed, she is currently on a wait list at [facility] and [facility] systems. 03/29/2021 Continue with Cefepime and Flagyl, remains on 2 L/min NC w/ SpO2 96% <Bayron SaezKAREN Lopez - Last Filed: 03/29/21 13:41> (2) Acute hypokalemia: Code(s): E87.6 - Hypokalemia <Bayron SaezKAREN Lopez - Last Filed: 03/29/21 13:41> Status: Acute <Bayron Gonzales KAREN Hopper - Last Filed: 03/29/21 13:41> Assessment and Plan: Potassium2.6>2.4>3.1 Continue supplement Repeat in the a.m. 03/28/2021 K 3.6 today, will continue to monitor 03/29/2021 K 3.7, appears resolved but will still monitor <Bayron SaezKAREN Lopez - Last Filed: 03/29/21 13:41> (3) Hepatitis C: Code(s): B19.20 - Unspecified viral hepatitis C without hepatic coma <Bayron Gonzales KAREN Hopper - Last Filed: 03/29/21 13:41> Status: Acute <Bayron Gonzales KAREN Hopper - Last Filed: 03/29/21 13:41> Assessment and Plan: Avoid hepatotoxic agents Total bili 1.2>1.7>0.7, ZPR705>226>177, XBC494>238>324 Will trend 03/28/2021 AST/ALT 53/239, very tender RUQ 03/29/2021 No abdominal pain on palpation today, Pt did just get pain medications <Bayron SaezSWATHI LopezC - Last Filed: 03/29/21 13:41> (4) Nephrolithiasis: Code(s): N20.0 - Calculus of kidney <Bayron SaezKAREN Lopez - Last Filed: 03/29/21 13:41> Status: Acute <Bayron SaezKAREN Lopez - Last Filed: 03/29/21 13:41> Assessment and Plan: CT of the abdomen indicates Dilation of the common bile duct to 12 mm without evident obstructing stone or mass or intrahepatic biliary ductal dilation. Correlate with liver function tests and if clinically indicated could consider MRCP for further evaluation. HIDA pending 03/28/2021 HIDA was cancelled while attempting to get Pt transferred, it was felt a ERCP or MRCP would be more effective. 03/29/2021 awaiting transfer where Pt can have a ERCP or MRCP <Bayron SaezKAREN Lopez - Last Filed: 03/29/21 13:41> (5) Tachycardia: Code(s): R00.0 - Tachycardia, unspecified <Bayron SaezKAREN Lopez - Last Filed: 03/29/21 13:41> Status: Acute <Bayron SaezKAREN Lopez - Last Filed: 03/29/21 13:41> Assessment and Plan: Chronic According to patient she has had tachycardia since her teenage years she notes that her heart rate goes as high as 120 her primary care physician is aware and has not attempted to treat. Patient declines any treatment 03/28/2021 HR is from 60s to 100s 03/29/2021 HR 50-110 <Bayron Hopper, SIDEWALK INSPECTOR-C - Last Filed: 03/29/21 13:41> Additional Plan 55-year-old female, smoker was noted to have a right upper lobe /right middle lobe pneumonia / mass with mediastinal lymphadenopathy. The patient was also noted to have co
[2021-03-29] MEDS: CYCLOBENZAPRINE HCL 10 MG TABLET PO (17:10)
[2021-03-30] VITALS (12 sets, daily range): BP systolic 100–120; BP diastolic 76–90; PULSE 98–105; RESP 16–20; TEMP 36.3–36.6; O2SAT 94–100
[2021-03-30] MEDS: IPRATROPIUM 0.5 MG/ALBUTEROL SULFATE 2.5 MG AMPUL.NEB 3 ML INHALATION ×4 (00:01→18:16)
[2021-03-30] MEDS: MORPHINE SULFATE (*CRX) 2 MG/ML INJ IV PUSH ×2 (04:52→20:57)
[2021-03-30 05:14] LABS: Basophils Absolute Auto 0.05 K/mm3 (0.00-0.10); Basophils Percent Auto 0.4 % (0.0-1.0); Eosinophils Absolute Auto 0.04 K/mm3 (0.02-0.50); Eosinophils Percent Auto 0.4 % (1.0-6.0); Hematocrit 42.3 % (35.0-49.0); Hemoglobin 13.2 g/dL (12.0-15.0); Immature Granulocyte Percent A 2.6 % (0.0-0.0); Lymphocytes Percent Auto 27.3 % (18.0-42.0); Mean Corpuscular HGB Conc 31.2 g/dL (32.0-36.0); Mean Corpuscular Hemoglobin 29.1 pg (27.0-31.0); Mean Corpuscular Volume 93.2 fL (78.0-102.0); Mean Platelet Volume 9.8 fl (9.2-11.8); Monocytes Absolute Auto 0.79 K/mm3 (0.10-0.90); Monocytes Percent Auto 6.9 % (2.0-11.0); Neutrophils Absolute Auto 7.1 K/mm3 (1.7-7.2); Neutrophils Percent Auto 62.4 % (50.0-70.0); Platelet Count Result 299 K/mm3 (150-420); Red Blood Count 4.54 M/mm3 (4.20-5.40); Red Cell Distribution Width 13.4 % (11.6-14.4); White Blood Count 11.4 K/mm3 (4.8-10.8)
[2021-03-30 05:43] LABS: Alanine Aminotransferase 216 U/L (14-59); Albumin Level 3.1 g/dL (3.4-5.0); Alkaline Phosphatase 156 U/L (46-116); Anion Gap 10 mmol/L (8-16); Aspartate Amino Transferase 48 U/L (15-37); Bilirubin,Total 0.4 mg/dL (0.00-1.00); Blood Urea Nitrogen 32 mg/dL (7-18); Calcium 9.7 mg/dL (8.5-10.1); Carbon Dioxide 33 mmol/L (21-32); Chloride 99 mmol/L (98-108); Estimated CRCL calculation 64 ml/min; Estimated Glomerular Filt Rate > 60; Glucose 88 mg/dL (70-99); Osmolality Calculated 299 mOsm/kg (285-295); Potassium 3.6 mmol/L (3.5-5.1); Sodium 142 mmol/L (136-145)
[2021-03-30] MEDS: LEVOTHYROXINE SODIUM 25 MCG TABLET PO (05:57)
[2021-03-30] MEDS: LEVOTHYROXINE SODIUM 100 MCG TABLET PO (05:57)
[2021-03-30] MEDS: IBUPROFEN 400 MG TABLET 800 MG PO ×2 (05:57→11:55)
[2021-03-30] MEDS: metroNIDAZOLE 500 MG/ISO 100ML 500 MG/100 ML BAG 100 MG IVPB ×3 (05:59→18:16)
[2021-03-30] MEDS: ENOXAPARIN 40 MG/0.4 ML SYRINGE SUB-Q (08:17)
[2021-03-30] MEDS: NICOTINE (*PBKC) 21 MG PATCH 1 PATCH TRANSDERM (08:17)
[2021-03-30] MEDS: methylPREDNISolone SOD SUCC 40 MG VIAL IV PUSH (08:20)
[2021-03-30] MEDS: PANTOPRAZOLE 40 MG TABLET PO (08:22)
[2021-03-30] MEDS: allopurinoL 100 MG TABLET PO ×2 (08:22→16:32)
[2021-03-30] MEDS: DIVALPROEX SODIUM ER 500 MG TAB.24H PO ×2 (08:22→20:58)
[2021-03-30] MEDS: LORATADINE 10 MG TABLET PO (08:22)
[2021-03-30] MEDS: HYDROcodone/acetaminophen (*CRX) 10-325 MG TABLET 1 TAB PO ×2 (08:23→16:31)
[2021-03-30] MEDS: GABAPENTIN 300 MG CAPSULE PO ×3 (08:23→16:32)
[2021-03-30] MEDS: CHOLECALCIFEROL 1,000 UNITS TABLET 2000 UNITS PO (08:23)
[2021-03-30] MEDS: clonazePAM (*CRX) 0.5 MG TABLET 1 MG PO ×2 (08:24→16:31)
[2021-03-30] MEDS: metOLazone 2.5 MG TABLET 5 MG PO (08:25)
[2021-03-30] MEDS: FLUoxetine HCL 20 MG CAPSULE 40 MG PO (08:25)
[2021-03-30] MEDS: FUROSEMIDE 40 MG TABLET PO (08:25)
[2021-03-30] MEDS: SACCHAROMYCES BOULARDII 250 MG CAPSULE PO ×3 (08:27→16:32)
[2021-03-30] MEDS: POTASSIUM CHLORIDE 20 MEQ TABLET 40 MEQ PO ×2 (08:27→16:31)
[2021-03-30] MEDS: FLUTICASONE PROPIONATE 0.05% NA SPR 16 GM BTL (*BKC) 2 SPRAY NASAL (08:27)
--- NOTE | 2021-03-30 12:12 | PC.NURSE ---
Patient encouraged to use call light for assistance when she is getting up. Patient non-compliant.
[2021-03-30] MEDS: CYCLOBENZAPRINE HCL 10 MG TABLET PO (13:56)
--- NOTE | 2021-03-30 13:59 | PM.IMPN ---
Progress Note: A&P Assessment and Plan (1) Pneumonia: Qualifiers: Laterality: right Lung location: middle lobe of lung Pneumonia type: due to unspecified organism Qualified Code(s): J18.9 - Pneumonia, unspecified organism Code(s): J18.9 - Pneumonia, unspecified organism Status: Acute Assessment and Plan: Chest x-ray indicate pneumonia CT recommended to rule out malignancy Continues with azithromycin and Rocephin day 2, duo nebulizer and Solu-Medrol Blood culture collected after antibiotic treatment WBCs 9.5>11.9>14.7 possible increased due to steroid use Lactic acid 1.7 CT of the chest pending 03/28/2021 CT Chest/Abd/Pel: IMPRESSION: 1. Right suprahilar malignancy with mediastinal invasion, mediastinal and right hilar lymphadenopathy, mass effect or possibly invasion of the SVC and brachiocephalic veins. 2. Small peripheral regions of ground glass opacity, nonspecific pneumonitis. Possible COVID pneumonia. 3. Punctate nephrolithiasis. Pt was informed, she is currently on a wait list at [facility] and [facility] systems. 03/29/2021 Continue with Cefepime and Flagyl, remains on 2 L/min NC w/ SpO2 96% 03/30/2021 Pt still on wait list, continue with regimen, 2 L/min NC SpO2 98% +/- (2) Acute hypokalemia: Code(s): E87.6 - Hypokalemia Status: Acute Assessment and Plan: Potassium2.6>2.4>3.1 Continue supplement Repeat in the a.m. 03/28/2021 K 3.6 today, will continue to monitor 03/29/2021 K 3.7, appears resolved but will still monitor 03/30/2021 K 3.6 resolved and will continue to monitor (3) Hepatitis C: Code(s): B19.20 - Unspecified viral hepatitis C without hepatic coma Status: Acute Assessment and Plan: Avoid hepatotoxic agents Total bili 1.2>1.7>0.7, ZTA990>226>177, PDJ256>238>324 Will trend 03/28/2021 AST/ALT 53/239, very tender RUQ 03/29/2021 No abdominal pain on palpation today, Pt did just get pain medications 03/30/2021 Pts pain is controlled after adjusting pain medications (4) Nephrolithiasis: Code(s): N20.0 - Calculus of kidney Status: Acute Assessment and Plan: CT of the abdomen indicates Dilation of the common bile duct to 12 mm without evident obstructing stone or mass or intrahepatic biliary ductal dilation. Correlate with liver function tests and if clinically indicated could consider MRCP for further evaluation. HIDA pending 03/28/2021 HIDA was cancelled while attempting to get Pt transferred, it was felt a ERCP or MRCP would be more effective. 03/29/2021 awaiting transfer where Pt can have a ERCP or MRCP 03/30/2021 awaiting transfer to [facility] to address lung mass and Biliary duct dilation (5) Tachycardia: Code(s): R00.0 - Tachycardia, unspecified Status: Acute Assessment and Plan: Chronic According to patient she has had tachycardia since her teenage years she notes that her heart rate goes as high as 120 her primary care physician is aware and has not attempted to treat. Patient declines any treatment 03/28/2021 HR is from 60s to 100s 03/29/2021 HR 50-110 03/30/2021 90-105 Additional Plan 55-year-old female, smoker was noted to have a right upper lobe /right middle lobe pneumonia / mass with mediastinal lymphadenopathy. The patient was also noted to have common bile duct enlargement. Would like the patient transferred to a electronic specialist for biopsy and staging. The patient is noted to have a common bile duct dilatation following which his antibiotics ceftriaxone and Zithromax have been discontinued and the patient is treated with cefepime and Flagyl. Subjective Date/time seen: 03/30/21 13:59 Gogo pain is still well controlled. She was able to take a shower this AM. Pt does not complain of pain at this time, no SOB, no fevers or chills, and her appetite is good. No other questions or concerns at this time. Review of Systems Review of Systems: All systems reviewed & are unremarkable except as noted in HPI an
[2021-03-31] VITALS (12 sets, daily range): BP systolic 107–133; BP diastolic 61–109; PULSE 74–112; RESP 16–22; TEMP 36.3–36.4; O2SAT 92–99
[2021-03-31] MEDS: metroNIDAZOLE 500 MG/ISO 100ML 500 MG/100 ML BAG 100 MG IVPB ×4 (00:07→18:33)
[2021-03-31] MEDS: HYDROcodone/acetaminophen (*CRX) 10-325 MG TABLET 1 TAB PO ×3 (00:09→15:37)
--- NOTE | 2021-03-31 00:55 | PC.NURSE ---
M transfer line loan representative called to check on patient status. No beds currently available, patient will remain on list
[2021-03-31] MEDS: IPRATROPIUM 0.5 MG/ALBUTEROL SULFATE 2.5 MG AMPUL.NEB 3 ML INHALATION ×4 (01:29→18:40)
[2021-03-31] MEDS: IBUPROFEN 400 MG TABLET 800 MG PO ×3 (02:04→22:08)
[2021-03-31] MEDS: CYCLOBENZAPRINE HCL 10 MG TABLET PO ×3 (02:04→22:08)
--- NOTE | 2021-03-31 04:51 | PC.NURSE ---
Pt is currently sleeping with her call light within reach and the bed in lowest position.
[2021-03-31 05:27] LABS: Hematocrit 41.7 % (35.0-49.0); Mean Corpuscular HGB Conc 31.2 g/dL (32.0-36.0); Mean Corpuscular Hemoglobin 29.5 pg (27.0-31.0); Mean Corpuscular Volume 94.6 fL (78.0-102.0); Mean Platelet Volume 9.6 fl (9.2-11.8); Platelet Count Result 263 K/mm3 (150-420); Red Blood Count 4.41 M/mm3 (4.20-5.40); Red Cell Distribution Width 13.3 % (11.6-14.4); White Blood Count 13.1 K/mm3 (4.8-10.8)
[2021-03-31 05:38] LABS: Anion Gap 8 mmol/L (8-16); Blood Urea Nitrogen 41 mg/dL (7-18); Calcium 9.5 mg/dL (8.5-10.1); Carbon Dioxide 34 mmol/L (21-32); Chloride 101 mmol/L (98-108); Estimated CRCL calculation 49 ml/min; Estimated Glomerular Filt Rate 50; Glucose 112 mg/dL (70-99); Osmolality Calculated 307 mOsm/kg (285-295); Potassium 3.6 mmol/L (3.5-5.1); Sodium 143 mmol/L (136-145)
[2021-03-31 05:47] LABS: Band Neutrophils Percent 0 % (0-6); Eosinophils Absolute Manual 0.13 K/mm3 (0.02-0.5); Eosinophils Percent Manual 1 % (1-6); Lymphocytes Absolute Manual 2.88 K/mm3 (1.1-4.5); Lymphocytes Percent Manual 22 % (18-44); Monocytes Absolute Manual 0.91 K/mm3 (0.1-0.90); Monocytes Percent Manual 7 % (3-9)
[2021-03-31 05:48] LABS: Basophils Percent Manual 0 % (0-1); Metamyelocytes Percent 1 %; Neutrophils Percent Manual 68 % (46-73); Nucleated Red Blood Cells 1 %; Platelet Estimate Adequate (Adequate)
[2021-03-31] MEDS: LEVOTHYROXINE SODIUM 100 MCG TABLET PO (06:11)
[2021-03-31] MEDS: LEVOTHYROXINE SODIUM 25 MCG TABLET PO (06:11)
[2021-03-31] MEDS: clonazePAM (*CRX) 0.5 MG TABLET 1 MG PO ×2 (08:11→17:12)
[2021-03-31] MEDS: CHOLECALCIFEROL 1,000 UNITS TABLET 2000 UNITS PO (08:12)
[2021-03-31] MEDS: DIVALPROEX SODIUM ER 500 MG TAB.24H PO ×2 (08:13→22:07)
[2021-03-31] MEDS: GABAPENTIN 300 MG CAPSULE PO ×3 (08:14→17:12)
[2021-03-31] MEDS: metOLazone 2.5 MG TABLET 5 MG PO (08:14)
[2021-03-31] MEDS: PANTOPRAZOLE 40 MG TABLET PO (08:14)
[2021-03-31] MEDS: FUROSEMIDE 40 MG TABLET PO (08:14)
[2021-03-31] MEDS: POTASSIUM CHLORIDE 20 MEQ TABLET 40 MEQ PO ×2 (08:15→17:12)
[2021-03-31] MEDS: LORATADINE 10 MG TABLET PO (08:15)
[2021-03-31] MEDS: allopurinoL 100 MG TABLET PO ×2 (08:15→17:12)
[2021-03-31] MEDS: FLUoxetine HCL 20 MG CAPSULE 40 MG PO (08:16)
[2021-03-31] MEDS: SACCHAROMYCES BOULARDII 250 MG CAPSULE PO ×3 (08:16→17:12)
[2021-03-31] MEDS: NICOTINE (*PBKC) 21 MG PATCH 1 PATCH TRANSDERM (08:18)
[2021-03-31] MEDS: FLUTICASONE PROPIONATE 0.05% NA SPR 16 GM BTL (*BKC) 2 SPRAY NASAL (08:19)
[2021-03-31] MEDS: ENOXAPARIN 40 MG/0.4 ML SYRINGE SUB-Q (08:19)
[2021-03-31] MEDS: methylPREDNISolone SOD SUCC 40 MG VIAL IV PUSH (08:19)
--- NOTE | 2021-03-31 15:10 | P.PNIM_ITS ---
Progress Note: A&P Assessment and Plan (1) Pneumonia: Qualifiers: Laterality: right Lung location: middle lobe of lung Pneumonia type: due to unspecified organism Qualified Code(s): J18.9 - Pneumonia, unspecified organism <Bayron LujanKAREN ford - Last Filed: 03/31/21 15:47> Code(s): J18.9 - Pneumonia, unspecified organism <Bayron LujanSWATHI fordC - Last Filed: 03/31/21 15:47> Status: Acute <Bayron LujanSWATHI fordC - Last Filed: 03/31/21 15:47> Assessment and Plan: * Chest x-ray indicate pneumonia CT recommended to rule out malignancy * Continues with azithromycin and Rocephin day 2, duo nebulizer and Solu-Medrol * Blood culture collected after antibiotic treatment * WBCs 9.5>11.9>14.7 possible increased due to steroid use * Lactic acid 1.7 * CT of the chest pending 03/28/2021 CT Chest/Abd/Pel: IMPRESSION: 1. Right suprahilar malignancy with mediastinal invasion, mediastinal and right hilar lymphadenopathy, mass effect or possibly invasion of the SVC and brachiocephalic veins. 2. Small peripheral regions of ground glass opacity, nonspecific pneumonitis. Possible COVID pneumonia. 3. Punctate nephrolithiasis. Pt was informed, she is currently on a wait list at [facility] and [facility] hospital systems. 03/29/2021 Continue with Cefepime and Flagyl, remains on 2 L/min NC w/ SpO2 96% 03/30/2021 Pt still on wait list, continue with regimen, 2 L/min NC SpO2 98% +/- 03/31/2021 Called [facility] and Pt is still on wait list at this facility, [facility] no longer using wait lists, continue treating Pneumonia, Weaning O2 to room air <Bayron SaezKAREN Lopez - Last Filed: 03/31/21 15:47> (2) Common bile duct dilatation: Code(s): K83.8 - Other specified diseases of biliary tract <Bayron Gonzales KAREN Hopper - Last Filed: 03/31/21 15:47> Status: Acute <Bayron Gonzales KAREN Hopper - Last Filed: 03/31/21 15:47> Assessment and Plan: * CT of the abdomen indicates Dilation of the common bile duct to 12 mm without evident obstructing stone or mass or intrahepatic biliary ductal dilation. Correlate with liver function tests and if clinically indicated could consider MRCP for further evaluation. * HIDA pending 03/28/2021 HIDA was cancelled while attempting to get Pt transferred, it was felt a ERCP or MRCP would be more effective. 03/29/2021 awaiting transfer where Pt can have a ERCP or MRCP 03/30/2021 awaiting transfer to [facility] to address lung mass and Biliary duct dilation 03/31/2021 Reordering HIDA scan for this Saturday, pain is well managed at this time <KAREN Cates - Last Filed: 03/31/21 15:47> (3) Acute hypokalemia: Code(s): E87.6 - Hypokalemia <KAREN Cates - Last Filed: 03/31/21 15:47> Status: Acute <KAREN Cates - Last Filed: 03/31/21 15:47> Assessment and Plan: * Potassium2.6>2.4>3.1 * Continue supplement * Repeat in the a.m. 03/28/2021 K 3.6 today, will continue to monitor 03/29/2021 K 3.7, appears resolved but will still monitor 03/30/2021 K 3.6 resolved and will continue to monitor 03/31/2021 ... <KAREN Cates - Last Filed: 03/31/21 15:47> (4) Hepatitis C: Code(s): B19.20 - Unspecified viral hepatitis C without hepatic coma <KAREN Cates - Last Filed: 03/31/21 15:47> Status: Acute <KAREN Cates - Last Filed: 03/31/21 15:47> Assessment and Plan: * Avoid hepatotoxic agents * Total bili 1.2>1.7>0.7, QHS791>226>177, HAE857>238>324 * Will trend 03/28/2021 AST/ALT 53/239, very tender RUQ 03/29/2021 No abdominal pain on palpation today, Pt did just get farshad
--- NOTE | 2021-03-31 15:10 | PM.IMPN ---
Progress Note: A&P Assessment and Plan (1) Pneumonia: Qualifiers: Laterality: right Lung location: middle lobe of lung Pneumonia type: due to unspecified organism Qualified Code(s): J18.9 - Pneumonia, unspecified organism <Bayron Gonzales KAREN Hopper - Last Filed: 03/31/21 15:47> Code(s): J18.9 - Pneumonia, unspecified organism <Bayron Gonzales KAREN Hopper - Last Filed: 03/31/21 15:47> Status: Acute <Bayron Gonzales KAREN Hopper - Last Filed: 03/31/21 15:47> Assessment and Plan: Chest x-ray indicate pneumonia CT recommended to rule out malignancy Continues with azithromycin and Rocephin day 2, duo nebulizer and Solu-Medrol Blood culture collected after antibiotic treatment WBCs 9.5>11.9>14.7 possible increased due to steroid use Lactic acid 1.7 CT of the chest pending 03/28/2021 CT Chest/Abd/Pel: IMPRESSION: 1. Right suprahilar malignancy with mediastinal invasion, mediastinal and right hilar lymphadenopathy, mass effect or possibly invasion of the SVC and brachiocephalic veins. 2. Small peripheral regions of ground glass opacity, nonspecific pneumonitis. Possible COVID pneumonia. 3. Punctate nephrolithiasis. Pt was informed, she is currently on a wait list at [facility] and [facility] hospital systems. 03/29/2021 Continue with Cefepime and Flagyl, remains on 2 L/min NC w/ SpO2 96% 03/30/2021 Pt still on wait list, continue with regimen, 2 L/min NC SpO2 98% +/- 03/31/2021 Called [facility] and Pt is still on wait list at this facility, [facility] no longer using wait lists, continue treating Pneumonia, Weaning O2 to room air <Bayron NadjaKAREN Lopez - Last Filed: 03/31/21 15:47> (2) Common bile duct dilatation: Code(s): K83.8 - Other specified diseases of biliary tract <Bayron SaezKAREN Lopez - Last Filed: 03/31/21 15:47> Status: Acute <Bayron SaezKAREN Lopez - Last Filed: 03/31/21 15:47> Assessment and Plan: CT of the abdomen indicates Dilation of the common bile duct to 12 mm without evident obstructing stone or mass or intrahepatic biliary ductal dilation. Correlate with liver function tests and if clinically indicated could consider MRCP for further evaluation. HIDA pending 03/28/2021 HIDA was cancelled while attempting to get Pt transferred, it was felt a ERCP or MRCP would be more effective. 03/29/2021 awaiting transfer where Pt can have a ERCP or MRCP 03/30/2021 awaiting transfer to [facility] to address lung mass and Biliary duct dilation 03/31/2021 Reordering HIDA scan for this Saturday, pain is well managed at this time <KAREN Cates - Last Filed: 03/31/21 15:47> (3) Acute hypokalemia: Code(s): E87.6 - Hypokalemia <KAREN Cates - Last Filed: 03/31/21 15:47> Status: Acute <KAREN Cates - Last Filed: 03/31/21 15:47> Assessment and Plan: Potassium2.6>2.4>3.1 Continue supplement Repeat in the a.m. 03/28/2021 K 3.6 today, will continue to monitor 03/29/2021 K 3.7, appears resolved but will still monitor 03/30/2021 K 3.6 resolved and will continue to monitor 03/31/2021 ... <KAREN Cates - Last Filed: 03/31/21 15:47> (4) Hepatitis C: Code(s): B19.20 - Unspecified viral hepatitis C without hepatic coma <KAREN Cates - Last Filed: 03/31/21 15:47> Status: Acute <KAREN Cates - Last Filed: 03/31/21 15:47> Assessment and Plan: Avoid hepatotoxic agents Total bili 1.2>1.7>0.7, [id number]>226>177, [id number]>238>324 Will trend 03/28/2021 AST/ALT 53/239, very tender RUQ 03/29/2021 No abdominal pain on palpation today, Pt did just get pain medications 03/30/2021 Pts pain is controlled after adjusting pain medications 03/31/2021 Abdominal pain controlled <KAREN Cates - Last Filed: 03/31/21 15:47> (5) Nephrolithiasis: Code(s): N20.0 - Calculus of kidney <KAREN Cates - Last Filed: 03/31/21 15:47> Status: Acute <Bayron Hopper,
[2021-03-31] MEDS: MORPHINE SULFATE (*CRX) 2 MG/ML INJ IV PUSH (17:14)
[2021-04-01] VITALS (12 sets, daily range): BP systolic 105–114; BP diastolic 64–82; PULSE 91–110; RESP 18–20; TEMP 35.8–36.3; O2SAT 90–98
[2021-04-01] MEDS: metroNIDAZOLE 500 MG/ISO 100ML 500 MG/100 ML BAG 100 MG IVPB ×5 (00:16→23:56)
[2021-04-01] MEDS: HYDROcodone/acetaminophen (*CRX) 10-325 MG TABLET 1 TAB PO ×4 (00:16→23:56)
[2021-04-01] MEDS: IPRATROPIUM 0.5 MG/ALBUTEROL SULFATE 2.5 MG AMPUL.NEB 3 ML INHALATION ×4 (00:39→18:38)
[2021-04-01] MEDS: MORPHINE SULFATE (*CRX) 2 MG/ML INJ IV PUSH ×2 (02:46→19:36)
[2021-04-01 05:16] LABS: Hematocrit 41.1 % (35.0-49.0); Hemoglobin 12.7 g/dL (12.0-15.0); Mean Corpuscular HGB Conc 30.9 g/dL (32.0-36.0); Mean Corpuscular Hemoglobin 28.9 pg (27.0-31.0); Mean Corpuscular Volume 93.4 fL (78.0-102.0); Platelet Count Result 284 K/mm3 (150-420); Red Cell Distribution Width 13.2 % (11.6-14.4); White Blood Count 16.5 K/mm3 (4.8-10.8)
[2021-04-01 05:27] LABS: Anion Gap 10 mmol/L (8-16); Blood Urea Nitrogen 42 mg/dL (7-18); Calcium 9.1 mg/dL (8.5-10.1); Carbon Dioxide 31 mmol/L (21-32); Chloride 97 mmol/L (98-108); Estimated CRCL calculation 55 ml/min; Estimated Glomerular Filt Rate 56; Glucose 90 mg/dL (70-99); Osmolality Calculated 296 mOsm/kg (285-295); Sodium 138 mmol/L (136-145)
[2021-04-01] MEDS: LEVOTHYROXINE SODIUM 25 MCG TABLET PO (06:11)
[2021-04-01] MEDS: LEVOTHYROXINE SODIUM 100 MCG TABLET PO (06:11)
[2021-04-01] MEDS: IBUPROFEN 400 MG TABLET 800 MG PO ×3 (06:11→21:15)
[2021-04-01] MEDS: POTASSIUM CHLORIDE 20 MEQ TABLET 40 MEQ PO ×3 (09:07→16:51)
[2021-04-01] MEDS: clonazePAM (*CRX) 0.5 MG TABLET 1 MG PO ×2 (09:07→16:50)
[2021-04-01] MEDS: GABAPENTIN 300 MG CAPSULE PO ×3 (09:07→16:50)
[2021-04-01] MEDS: NICOTINE (*PBKC) 21 MG PATCH 1 PATCH TRANSDERM (09:08)
[2021-04-01] MEDS: metOLazone 2.5 MG TABLET 5 MG PO (09:08)
[2021-04-01] MEDS: CHOLECALCIFEROL 1,000 UNITS TABLET 2000 UNITS PO (09:08)
[2021-04-01] MEDS: LORATADINE 10 MG TABLET PO (09:08)
[2021-04-01] MEDS: allopurinoL 100 MG TABLET PO ×2 (09:08→16:50)
[2021-04-01] MEDS: FUROSEMIDE 40 MG TABLET PO (09:08)
[2021-04-01] MEDS: PANTOPRAZOLE 40 MG TABLET PO (09:08)
[2021-04-01] MEDS: DIVALPROEX SODIUM ER 500 MG TAB.24H PO ×2 (09:08→21:07)
[2021-04-01] MEDS: FLUTICASONE PROPIONATE 0.05% NA SPR 16 GM BTL (*BKC) 2 SPRAY NASAL (09:10)
[2021-04-01] MEDS: ENOXAPARIN 40 MG/0.4 ML SYRINGE SUB-Q (09:10)
[2021-04-01] MEDS: SACCHAROMYCES BOULARDII 250 MG CAPSULE PO ×3 (09:10→16:51)
[2021-04-01] MEDS: FLUoxetine HCL 20 MG CAPSULE 40 MG PO (09:10)
[2021-04-01] MEDS: methylPREDNISolone SOD SUCC 40 MG VIAL IV PUSH (09:10)
--- NOTE | 2021-04-01 11:29 | PM.IMPN ---
Progress Note: A&P Assessment and Plan (1) Pneumonia: Qualifiers: Laterality: right Lung location: middle lobe of lung Pneumonia type: due to unspecified organism Qualified Code(s): J18.9 - Pneumonia, unspecified organism Code(s): J18.9 - Pneumonia, unspecified organism Status: Acute Assessment and Plan: Chest x-ray indicate pneumonia CT recommended to rule out malignancy Continues with azithromycin and Rocephin day 2, duo nebulizer and Solu-Medrol Blood culture collected after antibiotic treatment WBCs 9.5>11.9>14.7 possible increased due to steroid use Lactic acid 1.7 CT of the chest pending 03/28/2021 CT Chest/Abd/Pel: IMPRESSION: 1. Right suprahilar malignancy with mediastinal invasion, mediastinal and right hilar lymphadenopathy, mass effect or possibly invasion of the SVC and brachiocephalic veins. 2. Small peripheral regions of ground glass opacity, nonspecific pneumonitis. Possible COVID pneumonia. 3. Punctate nephrolithiasis. Pt was informed, she is currently on a wait list at [facility] and [facility] hospital systems. 03/29/2021 Continue with Cefepime and Flagyl, remains on 2 L/min NC w/ SpO2 96% 03/30/2021 Pt still on wait list, continue with regimen, 2 L/min NC SpO2 98% +/- 03/31/2021 Called [facility] and Pt is still on wait list at this facility, [facility] no longer using wait lists, continue treating Pneumonia, Weaning O2 to room air 04/01/2021 Continue on wait list, continue Ab, breathing without issues (2) Common bile duct dilatation: Code(s): K83.8 - Other specified diseases of biliary tract Status: Acute Assessment and Plan: CT of the abdomen indicates Dilation of the common bile duct to 12 mm without evident obstructing stone or mass or intrahepatic biliary ductal dilation. Correlate with liver function tests and if clinically indicated could consider MRCP for further evaluation. HIDA pending 03/28/2021 HIDA was cancelled while attempting to get Pt transferred, it was felt a ERCP or MRCP would be more effective. 03/29/2021 awaiting transfer where Pt can have a ERCP or MRCP 03/30/2021 awaiting transfer to [facility] to address lung mass and Biliary duct dilation 03/31/2021 Reordering HIDA scan for this Jacob, pain is well managed at this time 04/01/2021 ... (3) Acute hypokalemia: Code(s): E87.6 - Hypokalemia Status: Acute Assessment and Plan: Potassium2.6>2.4>3.1 Continue supplement Repeat in the a.m. 03/28/2021 K 3.6 today, will continue to monitor 03/29/2021 K 3.7, appears resolved but will still monitor 03/30/2021 K 3.6 resolved and will continue to monitor 03/31/2021 ... (4) Hepatitis C: Code(s): B19.20 - Unspecified viral hepatitis C without hepatic coma Status: Acute Assessment and Plan: Avoid hepatotoxic agents Total bili 1.2>1.7>0.7, [id number]>226>177, [id number]>238>324 Will trend 03/28/2021 AST/ALT 53/239, very tender RUQ 03/29/2021 No abdominal pain on palpation today, Pt did just get pain medications 03/30/2021 Pts pain is controlled after adjusting pain medications 03/31/2021 Abdominal pain controlled 04/01/2021 ... (5) Nephrolithiasis: Code(s): N20.0 - Calculus of kidney Status: Acute Assessment and Plan: Information that was in this section has been moved under Common Bile Duct Dilatation (6) Tachycardia: Code(s): R00.0 - Tachycardia, unspecified Status: Acute Assessment and Plan: Chronic According to patient she has had tachycardia since her teenage years she notes that her heart rate goes as high as 120 her primary care physician is aware and has not attempted to treat. Patient declines any treatment 03/28/2021 HR is from 60s to 100s 03/29/2021 HR 50-110 03/30/2021 90-105 Additional Plan 55-year-old female, smoker was noted to have a right upper lobe /right middle lobe pneumonia / mass with mediastinal lymphadenopathy. The patient was also noted to have common bile duct enlargement. Would like the pat
[2021-04-01] MEDS: CYCLOBENZAPRINE HCL 10 MG TABLET PO ×2 (13:04→21:15)
--- NOTE | 2021-04-01 23:31 | PC.NURSE ---
[facility] admissions called to check patient status They are currently at capacity and do not have available bed
[2021-04-02] VITALS (8 sets, daily range): BP systolic 106–115; BP diastolic 72–86; PULSE 83–106; RESP 18–20; TEMP 36–36.1; O2SAT 93–96
[2021-04-02] MEDS: IPRATROPIUM 0.5 MG/ALBUTEROL SULFATE 2.5 MG AMPUL.NEB 3 ML INHALATION ×4 (00:54→18:41)
[2021-04-02 05:43] LABS: Hematocrit 40.9 % (35.0-49.0); Hemoglobin 12.8 g/dL (12.0-15.0); Mean Corpuscular HGB Conc 31.3 g/dL (32.0-36.0); Mean Corpuscular Hemoglobin 29.2 pg (27.0-31.0); Mean Corpuscular Volume 93.2 fL (78.0-102.0); Mean Platelet Volume 10.2 fl (9.2-11.8); Platelet Count Result 293 K/mm3 (150-420); Red Blood Count 4.39 M/mm3 (4.20-5.40); Red Cell Distribution Width 13.2 % (11.6-14.4); White Blood Count 13.7 K/mm3 (4.8-10.8)
[2021-04-02 05:54] LABS: Anion Gap 10 mmol/L (8-16); Blood Urea Nitrogen 47 mg/dL (7-18); Calcium 9.4 mg/dL (8.5-10.1); Carbon Dioxide 30 mmol/L (21-32); Chloride 99 mmol/L (98-108); Estimated CRCL calculation 55 ml/min; Estimated Glomerular Filt Rate 57; Glucose 97 mg/dL (70-99); Osmolality Calculated 300 mOsm/kg (285-295); Sodium 139 mmol/L (136-145)
[2021-04-02] MEDS: LEVOTHYROXINE SODIUM 100 MCG TABLET PO (05:56)
[2021-04-02 06:00] LABS: Potassium 2.4 mmol/L (3.5-5.1)
[2021-04-02] MEDS: metroNIDAZOLE 500 MG/ISO 100ML 500 MG/100 ML BAG 100 MG IVPB ×4 (06:04→23:32)
[2021-04-02] MEDS: MORPHINE SULFATE (*CRX) 2 MG/ML INJ IV PUSH ×2 (06:05→18:15)
[2021-04-02] MEDS: LEVOTHYROXINE SODIUM 25 MCG TABLET PO (06:07)
--- NOTE | 2021-04-02 06:23 | PC.NURSE ---
Patient KCL at 2.4. New order received for KCL at 40 mEq IVPB.
[2021-04-02] MEDS: HYDROcodone/acetaminophen (*CRX) 10-325 MG TABLET 1 TAB PO ×3 (07:43→23:32)
[2021-04-02] MEDS: CHOLECALCIFEROL 1,000 UNITS TABLET 2000 UNITS PO (10:04)
[2021-04-02] MEDS: SACCHAROMYCES BOULARDII 250 MG CAPSULE PO ×3 (10:04→16:01)
[2021-04-02] MEDS: clonazePAM (*CRX) 0.5 MG TABLET 1 MG PO ×2 (10:04→16:02)
[2021-04-02] MEDS: POTASSIUM CHLORIDE 20 MEQ TABLET 40 MEQ PO ×4 (10:04→16:01)
[2021-04-02] MEDS: DIVALPROEX SODIUM ER 500 MG TAB.24H PO ×2 (10:05→21:13)
[2021-04-02] MEDS: GABAPENTIN 300 MG CAPSULE PO ×3 (10:05→16:02)
[2021-04-02] MEDS: metOLazone 2.5 MG TABLET 5 MG PO (10:05)
[2021-04-02] MEDS: LORATADINE 10 MG TABLET PO (10:06)
[2021-04-02] MEDS: FUROSEMIDE 40 MG TABLET PO (10:06)
[2021-04-02] MEDS: SODIUM CHLORIDE 0.9% IV 250 ML 100 ML IV CONT (10:06)
[2021-04-02] MEDS: PANTOPRAZOLE 40 MG TABLET PO (10:06)
[2021-04-02] MEDS: allopurinoL 100 MG TABLET PO ×2 (10:06→16:01)
[2021-04-02] MEDS: KCL 20 MEQ/SW 100 ML 100 ML 50 MEQ IVPB (10:06)
[2021-04-02] MEDS: NICOTINE (*PBKC) 21 MG PATCH 1 PATCH TRANSDERM (10:07)
[2021-04-02] MEDS: FLUTICASONE PROPIONATE 0.05% NA SPR 16 GM BTL (*BKC) 2 SPRAY NASAL (10:08)
[2021-04-02] MEDS: methylPREDNISolone SOD SUCC 40 MG VIAL IV PUSH (10:08)
[2021-04-02] MEDS: FLUoxetine HCL 20 MG CAPSULE 40 MG PO (10:09)
[2021-04-02] MEDS: ENOXAPARIN 40 MG/0.4 ML SYRINGE SUB-Q (10:09)
[2021-04-02] MEDS: IBUPROFEN 400 MG TABLET 800 MG PO (12:10)
[2021-04-02] MEDS: CYCLOBENZAPRINE HCL 10 MG TABLET PO (12:10)
[2021-04-02 13:28] LABS: Anion Gap 10 mmol/L (8-16); Blood Urea Nitrogen 41 mg/dL (7-18); Calcium 9.7 mg/dL (8.5-10.1); Carbon Dioxide 30 mmol/L (21-32); Chloride 96 mmol/L (98-108); Estimated CRCL calculation 55 ml/min; Estimated Glomerular Filt Rate 56; Glucose 129 mg/dL (70-99); Osmolality Calculated 294 mOsm/kg (285-295); Potassium 3.1 mmol/L (3.5-5.1); Sodium 136 mmol/L (136-145)
--- NOTE | 2021-04-02 15:08 | PM.IMPN ---
Progress Note: A&P Assessment and Plan (1) Pneumonia: Qualifiers: Laterality: right Lung location: middle lobe of lung Pneumonia type: due to unspecified organism Qualified Code(s): J18.9 - Pneumonia, unspecified organism <Bayron Gonzales KAREN Hopper - Last Filed: 04/02/21 15:32> Code(s): J18.9 - Pneumonia, unspecified organism <Bayron Gonzales KAREN Hopper - Last Filed: 04/02/21 15:32> Status: Acute <Bayron Gonzales SWATHI HopperC - Last Filed: 04/02/21 15:32> Assessment and Plan: 04/02/2021 See 04/01/2021 for previous weeks documentation for all diagnoses Currently on Cefepime and Flagyl, She is on room air, she is on a wait list at [facility] for Lung Biopsy and GI for Lung Mass and the 12mm Dilated Common Bile Duct, WBC improved 13.7 <Bayron SaezKAREN Lopez - Last Filed: 04/02/21 15:32> (2) Common bile duct dilatation: Code(s): K83.8 - Other specified diseases of biliary tract <Bayron SaezKAREN Lopez - Last Filed: 04/02/21 15:32> Status: Acute <Bayron Gonzales KAREN Hopper - Last Filed: 04/02/21 15:32> Assessment and Plan: 04/02/2021 12 mm Dilation of Common Bile Duct, if unable to get this Pt transferred she will be KS'ed and will have to set up an appointment either by this facility or her PCP for evaluation of her Dilated Bile Duct and Lung Mass, She has Hep C, Her pain is being controlled well per the Pt. <Bayron SaezKAREN Lopez - Last Filed: 04/02/21 15:32> (3) Acute hypokalemia: Code(s): E87.6 - Hypokalemia <Bayron SaezKAREN Lopez - Last Filed: 04/02/21 15:32> Status: Acute <Bayron NadjaKAREN Lopez - Last Filed: 04/02/21 15:32> Assessment and Plan: 04/02/2021 Potassium this AM was 2.4, 20 mEq given IV and 40 PO which increased K to 3.1 will give another 40 mEq PO and recheck in AM, her Magnesium was 2 today, Her Solu-Medrol was DC'ed today. <Bayron SaezKAREN Lopez - Last Filed: 04/02/21 15:32> (4) Hepatitis C: Code(s): B19.20 - Unspecified viral hepatitis C without hepatic coma <Bayron NadjaKAREN Lopez - Last Filed: 04/02/21 15:32> Status: Acute <Bayron SaezKAREN Lopez - Last Filed: 04/02/21 15:32> Assessment and Plan: 04/02/2021 pain is controlled, AST/ALT have been trending down <Bayron SaezKAERN Lopez - Last Filed: 04/02/21 15:32> (5) Nephrolithiasis: Code(s): N20.0 - Calculus of kidney <KAREN Cates - Last Filed: 04/02/21 15:32> Status: Acute <Bayron SaezKAREN Lopez - Last Filed: 04/02/21 15:32> Assessment and Plan: Information that was in this section has been moved under Common Bile Duct Dilatation <KAREN Cates - Last Filed: 04/02/21 15:32> (6) Tachycardia: Code(s): R00.0 - Tachycardia, unspecified <KAREN Cates - Last Filed: 04/02/21 15:32> Status: Acute <Bayron NadjaKAREN Lopez - Last Filed: 04/02/21 15:32> Assessment and Plan: 04/02/2021 HR stable and WNL, will continue to monitor <Bayron NadjaKAREN Lopez - Last Filed: 04/02/21 15:32> Additional Plan 55-year-old female, smoker was noted to have a right upper lobe /right middle lobe pneumonia / mass with mediastinal lymphadenopathy. The patient was also noted to have common bile duct enlargement. Would like the patient transferred to a ventilator specialist for biopsy and staging. The patient is noted to have a common bile duct dilatation following which his antibiotics ceftriaxone and Zithromax have been discontinued and the patient is treated with cefepime and Flagyl. <Bayron Hopper, TECHNICAL OPERATOR-C - Last Filed: 04/02/21 15:32> Subjective Date/time seen: 04/02/21 15:08 Pt says she is doing good today though her abdomen feels a little bigger. She does not have increased pain in her abdomen and is about the same as it has been the last couple days after changing her medications. She states her stools are not diarrhea any more.
[2021-04-03] VITALS (17 sets, daily range): BP systolic 102–139; BP diastolic 64–85; PULSE 61–111; RESP 8–20; TEMP 36–36.2; O2SAT 3–100
[2021-04-03] MEDS: SIMETHICONE 80 MG TAB.CHEW PO (00:23)
[2021-04-03] MEDS: IPRATROPIUM 0.5 MG/ALBUTEROL SULFATE 2.5 MG AMPUL.NEB 3 ML INHALATION ×5 (00:33→23:43)
[2021-04-03] MEDS: MORPHINE SULFATE (*CRX) 2 MG/ML INJ IV PUSH ×4 (01:04→22:05)
[2021-04-03] MEDS: LEVOTHYROXINE SODIUM 25 MCG TABLET PO (05:15)
[2021-04-03] MEDS: LEVOTHYROXINE SODIUM 100 MCG TABLET PO (05:16)
[2021-04-03] MEDS: IBUPROFEN 400 MG TABLET 800 MG PO ×2 (05:30→15:41)
[2021-04-03] MEDS: metroNIDAZOLE 500 MG/ISO 100ML 500 MG/100 ML BAG 100 MG IVPB ×4 (05:50→23:56)
[2021-04-03 06:05] LABS: Hematocrit 40.5 % (35.0-49.0); Hemoglobin 12.9 g/dL (12.0-15.0); Mean Corpuscular HGB Conc 31.9 g/dL (32.0-36.0); Mean Corpuscular Hemoglobin 29.7 pg (27.0-31.0); Mean Corpuscular Volume 93.3 fL (78.0-102.0); Mean Platelet Volume 10.3 fl (9.2-11.8); Platelet Count Result 294 K/mm3 (150-420); Red Blood Count 4.34 M/mm3 (4.20-5.40); Red Cell Distribution Width 13.2 % (11.6-14.4); White Blood Count 14.4 K/mm3 (4.8-10.8)
[2021-04-03 06:26] LABS: Alanine Aminotransferase 120 U/L (14-59); Albumin Level 3.1 g/dL (3.4-5.0); Alkaline Phosphatase 114 U/L (46-116); Anion Gap 11 mmol/L (8-16); Aspartate Amino Transferase 24 U/L (15-37); Bilirubin,Total 0.3 mg/dL (0.00-1.00); Blood Urea Nitrogen 39 mg/dL (7-18); Calcium 9.6 mg/dL (8.5-10.1); Carbon Dioxide 31 mmol/L (21-32); Chloride 98 mmol/L (98-108); Estimated CRCL calculation 59 ml/min; Estimated Glomerular Filt Rate > 60; Glucose 107 mg/dL (70-99); Osmolality Calculated 299 mOsm/kg (285-295); Potassium 2.6 mmol/L (3.5-5.1); Sodium 140 mmol/L (136-145); Total Protein 7.3 g/dL (6.4-8.2)
--- NOTE | 2021-04-03 07:21 | WPDPN ---
Progress Note: A&P Assessment and Plan (1) Pneumonia: Qualifiers: Laterality: right Lung location: middle lobe of lung Pneumonia type: due to unspecified organism Qualified Code(s): J18.9 - Pneumonia, unspecified organism Code(s): J18.9 - Pneumonia, unspecified organism Status: Acute Assessment and Plan: 04/02/2021 See 04/01/2021 for previous weeks documentation for all diagnoses Currently on Cefepime and Flagyl, She is on room air, she is on a wait list at [facility] for Lung Biopsy and GI for Lung Mass and the 12mm Dilated Common Bile Duct, WBC improved 13.7 WBCs 14.4 slightly elevated from yesterday Possible reaction to lung CA (2) Common bile duct dilatation: Code(s): K83.8 - Other specified diseases of biliary tract Status: Acute Assessment and Plan: 04/02/2021 12 mm Dilation of Common Bile Duct, if unable to get this Pt transferred she will be SD'ed and will have to set up an appointment either by this facility or her PCP for evaluation of her Dilated Bile Duct and Lung Mass, She has Hep C, Her pain is being controlled well per the Pt. Patient does not report pain will need to follow-up with the urologist Started Flomax (3) Acute hypokalemia: Code(s): E87.6 - Hypokalemia Status: Acute Assessment and Plan: 04/02/2021 Potassium this AM was 2.4, 20 mEq given IV and 40 PO which increased K to 3.1 will give another 40 mEq PO and recheck in AM, her Magnesium was 2 today, Her Solu-Medrol was SD'ed today. Potassium3.1>2.6>2.8 Potassium 80 mEq IV given in 40 mg given p.o. Will continue potassium supplement daily Repeat potassium level (4) Hepatitis C: Code(s): B19.20 - Unspecified viral hepatitis C without hepatic coma Status: Acute Assessment and Plan: 04/02/2021 pain is controlled, AST/ALT have been trending down (5) Nephrolithiasis: Code(s): N20.0 - Calculus of kidney Status: Acute Assessment and Plan: Information that was in this section has been moved under Common Bile Duct Dilatation Patient will need to follow-up with a urologist and Flomax given (6) Tachycardia: Code(s): R00.0 - Tachycardia, unspecified Status: Acute Assessment and Plan: 04/02/2021 HR stable and WNL, will continue to monitor Resolved Heart rate in the 90s Subjective Date/time seen: 04/03/21 07:21 patient notes when she urinates she has to strain but she is not experiencing any pain . she continues to experience abdominal discomfort. I did print out patient's imaging and educated her on her diagnosis and follow-ups status post hospital discharge. The patient denies , CP, palpitation, extremity numbness, lightheadedness, dizziness, constipation, diarrhea, chills, or fever. Patient continues to require supplementary oxygen will complete a home O2 evaluation. Review of Systems Review of Systems: A 14 organ system Review of Systems was performed and pertinent positives included in the HPI, otherwise remaining ROS is negative. Exam Narrative: GENERAL: This is a well-nourished, well-developed patient, in no apparent distress. HEAD: normocephalic, atraumatic. EYES: PERRL. Sclera clear/white. Vision is grossly intact. EARS: External ears normal, auditory canals clear and without drainage, TMs normal without perforation. Hearing grossly intact. NOSE: External nose normal with no obvious nasal discharge, nares without redness, no rhinorrhea. THROAT: Mucous membranes moist, posterior pharynx clear. NECK: Neck supple, non-tender without lymphadenopathy, masses or thyromegaly. CARDIOVASCULAR: Regular rate and rhythm without murmurs, gallops, or rubs. RESPIRATORY: Clear to auscultation. Breath sounds equal bilaterally. No wheezes, rales, or rhonchi. GASTROINTESTINAL: Abdomen hard, tender upper bilateral quadrant l area, distended. Bowel sounds are active. No guarding. SKIN: warm, intact with no suspicious lesions or rash, good textur
[2021-04-03] MEDS: SODIUM CHLORIDE 0.9% IV 500 ML IV CONT (07:38)
[2021-04-03] MEDS: KCL 20 MEQ/SW 100 ML 100 ML 50 MEQ IVPB ×2 (07:39→11:59)
[2021-04-03] MEDS: NICOTINE (*PBKC) 21 MG PATCH 1 PATCH TRANSDERM (07:56)
[2021-04-03] MEDS: POTASSIUM CHLORIDE 20 MEQ TABLET 40 MEQ PO ×3 (11:57→21:12)
[2021-04-03] MEDS: FLUTICASONE PROPIONATE 0.05% NA SPR 16 GM BTL (*BKC) 2 SPRAY NASAL (11:57)
[2021-04-03] MEDS: FLUoxetine HCL 20 MG CAPSULE 40 MG PO (11:57)
[2021-04-03] MEDS: SACCHAROMYCES BOULARDII 250 MG CAPSULE PO ×2 (11:57→18:00)
[2021-04-03] MEDS: ENOXAPARIN 40 MG/0.4 ML SYRINGE SUB-Q (11:57)
[2021-04-03] MEDS: clonazePAM (*CRX) 0.5 MG TABLET 1 MG PO ×2 (11:58→18:00)
[2021-04-03] MEDS: FUROSEMIDE 40 MG TABLET PO (11:58)
[2021-04-03] MEDS: CHOLECALCIFEROL 1,000 UNITS TABLET 2000 UNITS PO (11:58)
[2021-04-03] MEDS: metOLazone 2.5 MG TABLET 5 MG PO (11:58)
[2021-04-03] MEDS: DIVALPROEX SODIUM ER 500 MG TAB.24H PO ×2 (11:59→21:13)
[2021-04-03] MEDS: allopurinoL 100 MG TABLET PO ×2 (11:59→17:59)
[2021-04-03] MEDS: HYDROcodone/acetaminophen (*CRX) 10-325 MG TABLET 1 TAB PO ×3 (11:59→23:56)
[2021-04-03] MEDS: LORATADINE 10 MG TABLET PO (11:59)
[2021-04-03] MEDS: GABAPENTIN 300 MG CAPSULE PO ×2 (11:59→17:59)
[2021-04-03] MEDS: PANTOPRAZOLE 40 MG TABLET PO (11:59)
--- NOTE | 2021-04-03 13:52 | HOMEO2EVAL ---
Evaluation was performed [place] [facility]: Home Oxygen (O2) Evaluation Start: 04/03/21 10:55 Freq: ONCE Status: Active Protocol: RPE Activity Type Activity Date Activity User E-Sign Co-Sign Detail Recorded Client Recorded Date Recorded By Document 04/03/21 13:02 Yadi [id number] 04/03/21 13:51 SJB Document 04/03/21 13:10 SJB [id number] 04/03/21 13:51 SJB Document 04/03/21 13:30 [facility] [id number] 04/03/21 13:51 SJB 04/03/21 04/03/21 04/03/21 13:02 13:10 13:30 Home O2 Evaluation Test Phase Resting Exercise Resting Oxygen Delivery Nasal Cannula Nasal Cannula Room Air Oxygen Flow Rate (L/min) 1 1 Pulse Oximetry (90-100 %) 98 96 84 L Pulse Rate (60-100 beats/min) 104 H 111 H 87 Activity Tolerance Good Rating of Perceived Dyspnea (PD) +1 Mild, Noticeable to the Participant but Not to an Observer Rate of Perceived Exertion (PE) 11 Fairly light Ambulation Distance (feet) 410 Home Oxygen Evaluation Comments Will start walk Pt juanito walk Will start on 1 on 1 lpm. very well lpm 02. pushing wheelchair on 1 lpm. Sp02 remained 96% and above throughout exercise. Treatment Charges O2 Evaluation - Inpatient
--- NOTE | 2021-04-03 14:14 | HOMEO2EVAL ---
Evaluation was performed at [facility] Home Oxygen Evaluation RC: Home Oxygen (O2) Evaluation Start: 04/03/21 10:55 Freq: ONCE Status: Active Protocol: RPE Activity Type Activity Date Activity User E-Sign Co-Sign Detail Recorded Client Recorded Date Recorded By Document 04/03/21 13:02 Yadi [id number] 04/03/21 13:51 SJB Document 04/03/21 13:10 SJB [id number] 04/03/21 13:51 SJB Document 04/03/21 13:00 [facility] [id number] 04/03/21 13:51 SJB 04/03/21 04/03/21 04/03/21 13:02 13:10 13:00 Home O2 Evaluation Test Phase Resting Exercise Resting Oxygen Delivery Nasal Cannula Nasal Cannula Room Air Oxygen Flow Rate (L/min) 1 1 Pulse Oximetry (90-100 %) 98 96 84 L Pulse Rate (60-100 beats/min) 104 H 111 H 87 Activity Tolerance Good Rating of Perceived Dyspnea (PD) +1 Mild, Noticeable to the Participant but Not to an Observer Rate of Perceived Exertion (PE) 11 Fairly light Ambulation Distance (feet) 410 Home Oxygen Evaluation Comments Will start walk Pt juanito walk Will start on 1 on 1 lpm. very well lpm 02. pushing wheelchair on 1 lpm. Sp02 remained 96% and above throughout exercise. Treatment Charges O2 Evaluation - Inpatient
--- NOTE | 2021-04-03 14:23 | HOMEO2EVAL ---
Evaluation was performed at [facility] Oxygen Evaluation RC: Home Oxygen (O2) Evaluation Start: 04/03/21 10:55 Freq: ONCE Status: Active Protocol: RPE Activity Type Activity Date Activity User E-Sign Co-Sign Detail Recorded Client Recorded Date Recorded By Document 04/03/21 13:00 [facility] [id number] 04/03/21 14:22 SJB Document 04/03/21 13:02 B [id number] 04/03/21 14:22 B Document 04/03/21 13:10 [facility] [id number] 04/03/21 14:22 B 04/03/21 04/03/21 04/03/21 13:00 13:02 13:10 Home O2 Evaluation Test Phase Resting Resting Exercise Oxygen Delivery Room Air Nasal Cannula Nasal Cannula Oxygen Flow Rate (L/min) 1 1 Pulse Oximetry (90-100 %) 84 L 98 96 Pulse Rate (60-100 beats/min) 87 104 H 111 H Activity Tolerance Good Rating of Perceived Dyspnea (PD) +1 Mild, Noticeable to the Participant but Not to an Observer Rate of Perceived Exertion (PE) 11 Fairly light Ambulation Distance (feet) 410 Home Oxygen Evaluation Comments Will start on 1 Will start walk Pt juanito walk lpm 02. on 1 lpm. very well pushing wheelchair on 1 lpm. Sp02 remained 96% and above throughout exercise. Treatment Charges O2 Evaluation - Inpatient
[2021-04-03] MEDS: CYCLOBENZAPRINE HCL 10 MG TABLET PO (15:41)
[2021-04-03] MEDS: MAG HYDROX/AL HYDROX/SIMETH 30 ML UDC PO (16:00)
[2021-04-03 17:31] LABS: Potassium 2.8 mmol/L (3.5-5.1)
--- NOTE | 2021-04-03 19:20 | PC.NURSE ---
Completed change of shift report. Patient is standing in front of the sink, washing her hair. She asked for a dry gown, as she got it wet. Patient stated that she did not need anything else at this time.
--- NOTE | 2021-04-03 23:20 | PC.NURSE ---
Completed patient rounding. Patient is sleeping comfortably in bed, with no signs of pain or discomfort.
[2021-04-04] VITALS: BP 116/65; PULSE 98; RESP 18; TEMP 36.4; O2SAT 94
[2021-04-04] MEDS: ACETAMINOPHEN 325 MG TABLET 650 MG PO (01:26)
[2021-04-04] MEDS: IPRATROPIUM 0.5 MG/ALBUTEROL SULFATE 2.5 MG AMPUL.NEB 3 ML INHALATION (05:38)
[2021-04-04 05:39] VITALS: PULSE 75; RESP 16; O2SAT 92
[2021-04-04 05:48] VITALS: PULSE 88; RESP 16; O2SAT 100
[2021-04-04] MEDS: MORPHINE SULFATE (*CRX) 2 MG/ML INJ IV PUSH ×2 (05:56→11:05)
[2021-04-04 05:57] LABS: Hematocrit 42.7 % (35.0-49.0); Hemoglobin 13.1 g/dL (12.0-15.0); Mean Corpuscular HGB Conc 30.7 g/dL (32.0-36.0); Mean Corpuscular Hemoglobin 29.4 pg (27.0-31.0); Mean Corpuscular Volume 95.7 fL (78.0-102.0); Mean Platelet Volume 10.2 fl (9.2-11.8); Platelet Count Result 322 K/mm3 (150-420); Red Blood Count 4.46 M/mm3 (4.20-5.40); Red Cell Distribution Width 13.4 % (11.6-14.4); White Blood Count 15.1 K/mm3 (4.8-10.8)
[2021-04-04 06:12] LABS: Alanine Aminotransferase 105 U/L (14-59); Albumin Level 3.3 g/dL (3.4-5.0); Alkaline Phosphatase 115 U/L (46-116); Anion Gap 9 mmol/L (8-16); Aspartate Amino Transferase 28 U/L (15-37); Bilirubin,Total 0.4 mg/dL (0.00-1.00); Blood Urea Nitrogen 35 mg/dL (7-18); Calcium 9.4 mg/dL (8.5-10.1); Carbon Dioxide 32 mmol/L (21-32); Chloride 100 mmol/L (98-108); Estimated CRCL calculation 59 ml/min; Estimated Glomerular Filt Rate > 60; Glucose 99 mg/dL (70-99); Osmolality Calculated 300 mOsm/kg (285-295); Potassium 3.2 mmol/L (3.5-5.1); Sodium 141 mmol/L (136-145); Total Protein 7.5 g/dL (6.4-8.2)
[2021-04-04] MEDS: IBUPROFEN 400 MG TABLET 800 MG PO (07:51)
[2021-04-04] MEDS: CYCLOBENZAPRINE HCL 10 MG TABLET PO (07:52)
[2021-04-04] MEDS: LEVOTHYROXINE SODIUM 100 MCG TABLET PO (07:55)
[2021-04-04] MEDS: LEVOTHYROXINE SODIUM 25 MCG TABLET PO (07:56)
[2021-04-04 08:00] VITALS: BP 112/70; PULSE 100; RESP 14; TEMP 36.2; O2SAT 96
[2021-04-04] MEDS: POTASSIUM CHLORIDE 20 MEQ TABLET 40 MEQ PO ×2 (08:58→08:59)
[2021-04-04] MEDS: ENOXAPARIN 40 MG/0.4 ML SYRINGE SUB-Q (08:58)
[2021-04-04] MEDS: FLUTICASONE PROPIONATE 0.05% NA SPR 16 GM BTL (*BKC) 2 SPRAY NASAL (09:00)
[2021-04-04] MEDS: LORATADINE 10 MG TABLET PO (09:00)
[2021-04-04] MEDS: clonazePAM (*CRX) 0.5 MG TABLET 1 MG PO (09:00)
[2021-04-04] MEDS: CHOLECALCIFEROL 1,000 UNITS TABLET 2000 UNITS PO (09:01)
[2021-04-04] MEDS: allopurinoL 100 MG TABLET PO (09:01)
[2021-04-04] MEDS: DIVALPROEX SODIUM ER 500 MG TAB.24H PO (09:01)
[2021-04-04] MEDS: GABAPENTIN 300 MG CAPSULE PO ×2 (09:02→14:36)
[2021-04-04] MEDS: FUROSEMIDE 40 MG TABLET PO (09:02)
[2021-04-04] MEDS: PANTOPRAZOLE 40 MG TABLET PO (09:02)
[2021-04-04] MEDS: metOLazone 2.5 MG TABLET 5 MG PO (09:02)
[2021-04-04] MEDS: FLUoxetine HCL 20 MG CAPSULE 40 MG PO (09:03)
[2021-04-04] MEDS: SACCHAROMYCES BOULARDII 250 MG CAPSULE PO ×2 (09:03→13:00)
[2021-04-04] MEDS: HYDROcodone/acetaminophen (*CRX) 10-325 MG TABLET 1 TAB PO (09:05)
[2021-04-04 09:25] LABS: Add Urine Microscopic? NO; Appearance Urine Clear (Clear); Bilirubin Urine Negative (Negative); Blood Urine Negative (Negative); Color Urine Yellow (Yellow); Glucose Urine UA Negative (Negative); Ketones Urine Negative (Negative); Leukocyte Esterase Ur Negative LEU/UL (Negative); Nitrate Urine Negative (Negative); Protein Urine Negative (Negative); Urobilinogen Urine 0.2 mg/dL (0.2-1.0); pH Urine 6.5 (5.0-8.0)
--- NOTE | 2021-04-04 11:37 | PM.DS ---
DS: Admitting Diagnosis Discharge Date 04/04/2021 Admitting Diagnosis Lung CA with metastatic disease DS: Discharge Diagnosis Discharge Diagnosis (1) Pneumonia: Qualifiers: Laterality: right Lung location: middle lobe of lung Pneumonia type: due to unspecified organism Qualified Code(s): J18.9 - Pneumonia, unspecified organism Code(s): J18.9 - Pneumonia, unspecified organism Status: Acute Assessment and Plan: 04/02/2021 See 04/01/2021 for previous weeks documentation for all diagnoses Currently on Cefepime and Flagyl, She is on room air, she is on a wait list at [facility] for Lung Biopsy and GI for Lung Mass and the 12mm Dilated Common Bile Duct, WBC improved 13.7 WBCs 14.4 >15.1 slightly elevated from yesterday Possible reaction to lung CA (2) Common bile duct dilatation: Code(s): K83.8 - Other specified diseases of biliary tract Status: Acute Assessment and Plan: 04/02/2021 12 mm Dilation of Common Bile Duct, if unable to get this Pt transferred she will be DC'ed and will have to set up an appointment either by this facility or her PCP for evaluation of her Dilated Bile Duct and Lung Mass, She has Hep C, Her pain is being controlled well per the Pt. Patient does not report pain will need to follow-up with the urologist Started Flomax (3) Acute hypokalemia: Code(s): E87.6 - Hypokalemia Status: Acute Assessment and Plan: 04/02/2021 Potassium this AM was 2.4, 20 mEq given IV and 40 PO which increased K to 3.1 will give another 40 mEq PO and recheck in AM, her Magnesium was 2 today, Her Solu-Medrol was DC'ed today. Potassium3.1>2.6>2.8 Potassium 80 mEq IV given in 40 mg given p.o. Will continue potassium supplement daily Repeat potassium level Discharge with supplements (4) Hepatitis C: Code(s): B19.20 - Unspecified viral hepatitis C without hepatic coma Status: Acute Assessment and Plan: 04/02/2021 pain is controlled, AST/ALT have been trending down (5) Nephrolithiasis: Code(s): N20.0 - Calculus of kidney Status: Acute Assessment and Plan: Information that was in this section has been moved under Common Bile Duct Dilatation Patient will need to follow-up with a urologist and Flomax given (6) Tachycardia: Code(s): R00.0 - Tachycardia, unspecified Status: Acute Assessment and Plan: 04/02/2021 HR stable and WNL, will continue to monitor Resolved Heart rate in the 90s DS: Summary Hospital Course Reason for hospitalization: Originally admitted for hyperkalemia and pneumonia, discharged with possible lung CA in metastatic disease Hospital Course: this is a 55-year-old female presented to our emergency department with complaints of abdominal pain. Patient has a past medical history of hep C. This hospital stay imaging indicated that there was a possible mass of the right upper lobe with possible metastatic disease patient will need to follow-up with her oncologist after you speak with her primary care physician office. Sanjuana Urbina nurse will ensure the patient follow-up with oncology in urology for the dilated bile duct with a 12 mm nonobstructive stone. Patient continues to have slight discomfort in her abdomen. Home to evaluation indicates that she needs 2 L nasal cannula with activity. The patient denies, CP, palpitation, extremity numbness, lightheadedness, dizziness, constipation, diarrhea, chills, or fever. MRCP ordered as outpatient as recommended by radiologist with results going to PCP Time Spent with Patient Time attestation: Total time spent providing and/or coordinating discharge services:60 Exam Narrative: GENERAL: This is a well-nourished, well-developed patient, in no apparent distress. HEAD: normocephalic, atraumatic. EYES: PERRL. Sclera clear/white. Vision is grossly intact. EARS: External ears normal, auditory canals clear and without drainage, TMs normal without perfor
--- NOTE | 2021-04-04 15:19 | PC.NURSE ---
Pt discharged to home with VSS. Oxygen teaching completed, pt verbalized understanding. Pt instructed to follow up with PCP as ordered. Medication teaching completed, pt verbalized understanding. RN assisted to the car by RN per WC.
--- NOTE | 2021-04-05 14:28 | PC.NURSE ---
[employer] employee states they received and understood the discharge instructions.
== END 2021-04-04 14:50 | disposition short-term general hospital (02) | DRG 180 ==
LOC: CHSED 03-26 00:55 → CHS2ND 03-27 10:23
PROVIDERS: Emergency Medicine; Nurse Practitioner; Nurse Practitioner Family; Admitting Provider Emergency Medicine; Emergency Provider Emergency Medicine; PCP Physician Assistant; Visit Provider Emergency Medicine
DX: C34.11 Malignant neoplasm of upper lobe, right bronchus or lung (principal); J18.9 Pneumonia, unspecified organism; B19.20 Unspecified viral hepatitis C without hepatic coma; F17.210 Nicotine dependence, cigarettes, uncomplicated; E87.6 Hypokalemia; K83.8 Other specified diseases of biliary tract; N20.0 Calculus of kidney; R10.10 Upper abdominal pain, unspecified; R00.0 Tachycardia, unspecified; R91.8 Other nonspecific abnormal finding of lung field; Z20.822 Contact with and (suspected) exposure to COVID-19
CPT/HCPCS: 36415; 71045; 71260; 74176; 74177; 78227; 80048; 80053; 80061; 80164; 80307; 81001; 81003; 82140; 82306; 82607; 82746; 83036; 83605; 83690; 83735; 84132; 84439; 84443; 84484; 85025; 85027; 85610; 85730; 87040; 93005; 94618; 94640; 96365; 96368; 96374; 96375; 99285; A9270; A9537; C9803; J0456; J0692; J0696; J1650; J2270; J2805; J2920; J2930; J3480; J7030; J7040; J7050; Q9967; U0003; U0005

== ENCOUNTER 2021-04-25 08:53 | Outpatient (CLI) | payer OTHER, SELFPAY ==
--- NOTE | ~2021-04-25 | MR_ITS ---
EXAMINATION: MR MRCP wo/w con/w 3D wo ind DATE: 04/25/2021 11:33 INDICATION: Other specified diseases of the biliary tract. Right upper quadrant abdominal pain. TECHNIQUE: Magnetic resonance imaging (MRI) of the abdomen was performed without and with 10 mL intra venous contrast. Sequences included coronal T2-weighted FS FSE, coronal T2-weighted FSE, axial T1-juanjo ghted LAVA, coronal FS FIESTA, coronal lava-FLEX, sagittal T2-weighted FSE, axial T2-weighted FSE, an d axial DWI. Thick-slab T2-weighted FSE images were obtained for magnetic resonance cholangiopancreat ography (MRCP). Maximum intensity projection 3-D reconstructions of the volumetric data were created by the technologist. Postcontrast sequences included coronal LAVA-flex and time course of axial T1-we ighted LAVA. COMPARISON: CT abdomen and pelvis 03/27/2021 FINDINGS: ABDOMEN MRI: Partially visualized is mediastinal and right hilar lymphadenopathy. The liver is normal . There are gallstones in the gallbladder, which is normal in size. There is incomplete pancreas divi sum. The spleen, adrenal glands, and left kidney are normal. There is a 5 mm cyst in right kidney. Th ere are no dilated loops of bowel. There is no free intraperitoneal fluid. ABDOMEN MRCP: The common duct is mildly dilated to 9 mm. No choledocholithiasis. IMPRESSION: 1. Mildly dilated common duct. No choledocholithiasis. 2. Cholelithiasis. 3. Mediastinal and right hilar lymphadenopathy, consistent with metastatic disease. Ultrasound-guided core needle biopsy of a right supraclavicular lymph node is recommended. Reviewed, dictated and finalized at location A. S SAGGER IMPRESSION: 1. Mildly dilated common duct. No choledocholithiasis. 2. Cholelithiasis. 3. Mediastinal and right hilar lymphadenopathy, consistent with metastatic dise ase. Ultrasound-guided core needle biopsy of a right supraclavicular lymph node is recommended.
== END 2021-04-25 08:54 | disposition home or self-care (01) ==
LOC: CHSIMG 08:55
PROVIDERS: PCP Physician Assistant; Visit Provider Nurse Practitioner
DX: K83.8 Other specified diseases of biliary tract (principal)
CPT/HCPCS: 74183; 76376; A9577

== ENCOUNTER 2021-05-11 08:06 | Outpatient (CLI) | payer OTHER, SELFPAY ==
--- NOTE | ~2021-05-11 | US_ITS ---
EXAMINATION: US biopsy lymph node DATE: 05/11/2021 09:59 INDICATION: Right upper lobe mass with enlarged right supraclavicular lymph nodes suspicious for meta static colon cancer. TECHNIQUE: The procedure including the risks and benefits was discussed with the patient. Risks discu ssed included bleeding and infection. The patient understood the risks and agreed to proceed. The sk in overlying the right supraclavicular region was prepped and draped in usual sterile fashion. Anest hetic was administered with 1% lidocaine subcutaneously. An 18 gauge core biopsy needle was advanced under continuous ultrasound observation to the lesion of interest. 4 core biopsy specimens were obt ained. The needle was removed and the entry site was cleaned and dressed. Post procedure ultrasound demonstrated no hemorrhage. FINDINGS: Ultrasound images demonstrate a 4.5 x 2.7 x 2.3 cm heterogeneous hypoechoic supraclavicular mass suspicious for metastatic disease. Subsequent images demonstrate biopsy needle advanced into th e mass. IMPRESSION: 1. Successful Ultrasound-guided biopsy of a 4.5 x 2.7 x 2.3 cm right supraclavicular mass suspicious for metastatic lymphadenopathy of lung primary based on CT imaging dated 03/27/2021. Reviewed, dictated and finalized at location A. ING MACHINE OPERATOR IMPRESSION: 1. Successful Ultrasound-guided biopsy of a 4.5 x 2.7 x 2.3 cm right supraclavi cular mass suspicious for metastatic lymphadenopathy of lung primary based on C T imaging dated 03/27/2021.
== END 2021-05-11 08:07 | disposition home or self-care (01) ==
LOC: ANHSURGERY 08:11
PROVIDERS: PCP Physician Assistant; Visit Provider Radiology Radiation Oncology
DX: C34.81 Malignant neoplasm of overlapping sites of right bronchus and lung (principal)
CPT/HCPCS: 38505; 76942; 88305; 88342

== ENCOUNTER 2021-05-18 07:14 | Inpatient (IN) | payer OTHER, SELFPAY ==
[2021-05-18] VITALS (14 sets, daily range): BP systolic 104–138; BP diastolic 64–81; PULSE 86–120; RESP 14–24; TEMP 35.8–36.9; O2SAT 86–100; BMI 30.7
--- NOTE | ~2021-05-18 | CT_ITS ---
EXAMINATION: CTA chest PE protocol DATE: 05/18/2021 09:45 INDICATION: Shortness of breath. Small cell lung cancer. TECHNIQUE: Computed tomography angiography (CTA) of the chest was performed with 100 mL Omnipaque-350 intravenous contrast timed to evaluate the pulmonary arteries. Coronal maximum intensity projection 3D-reconstructions were created by the technologist. Automated exposure control and iterative reconst ruction technique were employed. The dose-length product was 354.50 mGy-cm. COMPARISON: Chest CT 03/27/2021 FINDINGS: There is elevation of right hemidiaphragm. There is bulky right supraclavicular lymphadenop athy. There is mild left subarticular lymphadenopathy. There is a 11.2 x 9.6 cm mass involving the ri ght lung and mediastinum, increased from 9.8 x 7.0 cm. There is mass effect on the superior vena cava , which is small. There is involvement of the right perihilar bronchi with bronchial stenosis. There are airspace and groundglass opacities and septal thickening in right lung upper lobe. There is mild atelectasis in right lower lobe. There is mild scarring at left lung apex. No pleural effusion. The h eart size is normal. There is a moderate-sized pericardial effusion. There is mass effect on the righ t pulmonary arteries from the malignancy. No pulmonary embolus. There are old healed left rib fractur es. There is mild thoracic spondylosis. IMPRESSION: 1. No pulmonary embolus. Sensitivity is mildly decreased by motion artifact. 2. Worsened mass involving the right lung and mediastinum and worsened supraclavicular lymphadenopath y, consistent with small cell lung cancer. 3. Worsened airspace and groundglass opacities and septal thickening in right lung upper lobe, consis tent with postobstructive pneumonia and/or pulmonary edema. 4. Worsened moderate-sized pericardial effusion. Reviewed, dictated and finalized at location A. RIALS PLANNING ANALYST IMPRESSION: 1. No pulmonary embolus. Sensitivity is mildly decreased by motion artifact. 2. Worsened mass involving the right lung and mediastinum and worsened supracla vicular lymphadenopathy, consistent with small cell lung cancer. 3. Worsened airspace and groundglass opacities and septal thickening in right l jason upper lobe, consistent with postobstructive pneumonia and/or pulmonary lanny a. 4. Worsened moderate-sized pericardial effusion.
--- NOTE | ~2021-05-18 | MR_ITS ---
EXAMINATION: MR brain/brain stem wo/w con DATE: 05/20/2021 10:24 INDICATION: Cerebral aneurysm. TECHNIQUE: Magnetic resonance imaging (MRI) of the brain and brainstem was performed without and with 10 mL MultiHance intravenous contrast. Sequences included sagittal and axial T1-weighted FSE, axial diffusion-weighted FS EPI, axial T2*-weighted GRE, axial T2-weighted FLAIR Propeller, and axial T2-we ighted Propeller. Postcontrast sequences included axial and coronal T1-weighted FSE. Apparent diffusi on coefficient (ADC) maps were created. COMPARISON: Head CT 05/18/2021 FINDINGS: There are scattered areas of nonspecific increased T2-weighted signal intensity in the cere bral white matter and lolita. There is no intracranial hemorrhage, acute infarction, or abnormal intrac ranial mass lesion. The ventricles are normal in size. There is a 6 mm saccular aneurysm of left midd le cerebral artery. The orbits are normal. The paranasal sinuses are clear. The mastoid air cells are normal. IMPRESSION: 1. No evidence of metastatic disease. 2. Mild nonspecific cerebral white matter disease and pontine disease, which likely represents chroni c small vessel ischemic disease. 3. 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 Reviewed, dictated and finalized at location A. DIPPER IMPRESSION: 1. No evidence of metastatic disease. 2. Mild nonspecific cerebral white matter disease and pontine disease, which paramjit do represents chronic small vessel ischemic disease. 3. 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
--- NOTE | ~2021-05-18 | XR_ITS ---
EXAMINATION: XR chest 1V portable EXAM DATE: 05/18/2021 08:03 INDICATION: Shortness of breath smoker. TECHNIQUE: Portable AP frontal chest x-ray was obtained. Comparison is made to prior examination from 04/04/2021. FINDINGS: Right suprahilar centered mass measuring about 10 cm, increase in size compared to prior st udy. Ill-defined bibasilar airspace disease has developed, could be superimposed mild edema or pneumo leisa. No pneumothorax. Cardiomediastinal silhouette is normal. There are no osseous abnormalities iden tified. IMPRESSION: Increase in size of right suprahilar/hilar malignancy. Development of ill-defined bibasil ar edema or pneumonia. Reviewed, dictated and finalized at location A. ESE INSTRUCTOR IMPRESSION: Increase in size of right suprahilar/hilar malignancy. Development of ill-defined bibasilar edema or pneumonia.
--- NOTE | ~2021-05-18 | XR_ITS ---
EXAMINATION: XR chest 1V portable DATE: 05/20/2021 11:01 INDICATION: Shortness of breath. Wheezing. TECHNIQUE: A single frontal view of the chest was obtained. COMPARISON: Chest single view 05/18/2021 FINDINGS: Again seen is elevation of right hemidiaphragm. There is a large mass involving the right l jason, right hilum, and mediastinum. There is mild atelectasis at right lung base. No pleural effusion or pneumothorax. The heart size is normal. There are healing left rib fractures. IMPRESSION: 1. Stable large mass involving the right lung, right hilum, and mediastinum, consistent with small ce ll lung cancer. 2. Mild atelectasis at right lung base. Reviewed, dictated and finalized at location A. MAKER BENCH STAMPING IMPRESSION: 1. Stable large mass involving the right lung, right hilum, and mediastinum, co nsistent with small cell lung cancer. 2. Mild atelectasis at right lung base.
--- NOTE | ~2021-05-18 | CT_ITS ---
EXAMINATION: CT brain w con DATE: 05/18/2021 09:46 INDICATION: Small cell lung cancer TECHNIQUE: Computed tomography (CT) of the head was performed with 100 cc Omnipaque 350 intravenous c ontrast. The dose-length product was 529.67 mGy-cm. Automated exposure control and iterative reconstr uction technique were employed. COMPARISON: None FINDINGS: Brain parenchymal volume is normal for age. There is a 6 mm aneurysm of the left middle cer ebral artery, image 14. No ventriculomegaly or midline shift. No abnormally enhancing masses. Midline sagittal images demonstrate a normal corpus callosum and craniovertebral junction. Basilar cisterns are patent. No acute hemorrhage, infarction, mass or mass effect. Paranasal sinuses and mastoids are pneumatized. No depressed skull fractures. IMPRESSION: 1. Left middle cerebral arteries aneurysm measuring 6 mm. Consider correlation with MRI/MRA. 2: No acute intracranial abnormality. No evidence for metastatic disease. Reviewed, dictated and finalized at location B. ATIONS EXPERT
--- NOTE | ~2021-05-18 | MR_ITS ---
EXAMINATION: MRA neck wo/w con DATE: 05/20/2021 10:25 INDICATION: Cerebral aneurysm. TECHNIQUE: Magnetic resonance angiography (MRA) of the neck was performed without and with 10 mL Mult iHance intravenous contrast. Sequences included axial 2D-time of flight and 3D-time of flight T1-weig hted FSPGR and coronal T1-weighted FSPGR without and with intravenous contrast. COMPARISON: Chest CT 05/18/2021 FINDINGS: There is a large mass involving the right lung and mediastinum with mass effect on the superior vena cava. There is right supraclavicular lymphadenopathy. There is a 6 mm saccular aneurysm of left middl e cerebral artery. There is 0% stenosis of the proximal right internal carotid artery relative to nor mal distal artery lumen diameter (NASCET criteria). There is 0% stenosis of the proximal left internal grinding machine operator al carotid artery relative to normal distal artery lumen diameter. IMPRESSION: 1. 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 2. 0% stenosis of the proximal internal carotid arteries relative to normal distal artery lumen diam eters (NASCET criteria). 3. Mass involving the right lung and mediastinum and right supraclavicular lymphadenopathy, consisten t with small cell lung cancer. Reviewed, dictated and finalized at location A. NG PAN TENDER IMPRESSION: 1. 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 2. 0% stenosis of the proximal internal carotid arteries relative to normal di stal artery lumen diameters (NASCET criteria). 3. Mass involving the right lung and mediastinum and right supraclavicular lymp hadenopathy, consistent with small cell lung cancer.
--- NOTE | 2021-05-18 07:25 | ECG_ITS ---
Measurements Intervals [place] Rate: 119 P: 80 NV: 134 QRS: 86 QRSD: 85 T: 72 QT: 422 QTc: 596 Interpretive Statements SINUS TACHYCARDIA BORDERLINE T WAVE ABNORMALITY- INFERIOR LEADS BASELINE ARTIFACT- I, II, III, AVR, AVL, AVF, V1-V6 ABNORMAL ECG Electronically Signed On 05-18-2021 8:29:12 CARPET LAYER HELPER by Sohail Butler D.O.
[2021-05-18] MEDS: SODIUM CHLORIDE 0.9% IV 1,000 ML 999 ML IV CONT (07:35)
[2021-05-18] MEDS: methylPREDNISolone SOD SUCC 125 MG VIAL IV PUSH (07:35)
--- NOTE | 2021-05-18 07:55 | ED.SOB ---
HPI - SOB/Dyspnea General Chief Complaint: Shortness of Breath/Dyspnea Stated Complaint: AMBULANCE Time Seen by Provider: 05/18/21 07:57 Source: patient Mode of arrival: EMS Limitations: no limitations History of Present Illness HPI Narrative: this is a 55 year female with history right lung cancer history of COPD, who presents from [facility] care with increasing shortness of breath no fever chills patient denies having any chest pain no nausea vomiting or abdominal pain. Patient is on 3L of oxygen at the [facility], initially came in via EMS without oxygen and was satting at 86% on room air, patient was started on 4L and satting at 100%. Patient had a diagnosis of right hilar lung cancer and was scheduled to have a CT scan of brain with contrast today at [facility]. Otherwise there is no neurological deficits, is complaining of right pain and tenderness in the right clavicle area, no noted injuries patient is coherent and answers questions appropriately. MD elicited complaint: shortness of breath Pertinent past history: COPD and other ( lung cancer) Onset (ago): day(s) Severity: moderate Exacerbating factors: nothing Related Data Home Medications Medication Instructions Recorded Confirmed Incruse Ellipta 1 inh INHALATION DAILY 03/26/21 05/18/21 Vitamin Plus Low Iron 1 tablet PO DAILY 03/26/21 05/18/21 Stomach Relief See Rx Instructions .ROUTE 03/26/21 05/18/21 .COMPLEX PRN acetaminophen 1,000 mg PO TID 03/26/21 05/18/21 artificial tears solution 1 drp OPHTHALMIC (EYE) Q6-8H PRN 03/26/21 05/18/21 cetirizine 10 mg PO HS 03/26/21 05/18/21 cholecalciferol (vitamin D3) 50 mcg PO DAILY 03/26/21 05/18/21 [Vitamin D3] clonazepam 0.5 mg PO BID 03/26/21 05/18/21 cyclobenzaprine 10 mg PO TID PRN 03/26/21 05/18/21 diphenhydramine HCl [Allergy 50 mg PO HS PRN 03/26/21 05/18/21 (diphenhydramine)] divalproex 500 mg PO BID 03/26/21 05/18/21 fluoxetine 40 mg PO DAILY 03/26/21 05/18/21 fluticasone propionate 2 spray INTRANASAL DAILY 03/26/21 05/18/21 furosemide 40 mg PO DAILY 03/26/21 05/18/21 gabapentin 300 mg PO TID 03/26/21 05/18/21 ibuprofen 800 mg PO TID PRN 03/26/21 05/18/21 levothyroxine 125 mcg PO DAILY 03/26/21 05/18/21 loperamide [Anti-Diarrheal 2 mg PO Q4H PRN 03/26/21 05/18/21 (loperamide)] magnesium hydroxide [Milk of 15 ml PO DAILY PRN 03/26/21 05/18/21 Magnesia] melatonin 10 mg PO HS PRN 03/26/21 05/18/21 metolazone 5 mg PO DAILY 03/26/21 05/18/21 nicotine 1 patch TRANSDERMAL DAILY 03/26/21 05/18/21 omeprazole 20 mg PO DAILY 03/26/21 05/18/21 potassium chloride 40 meq PO BID 03/26/21 05/18/21 sennosides [senna] 8.6 mg PO DAILY PRN 03/26/21 05/18/21 simethicone 80 mg PO Q6-8H PRN 03/26/21 05/18/21 zolpidem 5 mg PO HS 03/26/21 05/18/21 alum-mag hydroxide-simeth 15 ml PO TID PRN 05/18/21 05/18/21 [Gabrielle-Lanta] epinephrine 0.15 mg IM Q30M PRN 05/18/21 05/18/21 psyllium [Metamucil] 1 packet PO DAILY 05/18/21 05/18/21 silver sulfadiazine 1 applic TOPICAL DAILY 05/18/21 05/18/21 tramadol 50 mg PO TID 05/18/21 05/18/21 Allergies Allergy/AdvReac Type Severity Reaction Status Date / Time sulfamethoxazole AdvReac Unknown Swelling Verified 05/18/21 07:38 [From Bactrim] of Lip/Tongue/Throat trimethoprim [From Bactrim] AdvReac Unknown Swelling Verified 05/18/21 07:38 of Lip/Tongue/Throat Review of Systems Review of Systems: All systems reviewed & are unremarkable except as noted in HPI and below PMFSH Past Medical History Medical History Hepatitis C Small cell lung cancer Family History Family History Other Family history non-contributory Social History Social History Smoking packs per day: 1.5 Smoking cigarettes per day: 30.0 Years smoked: 30 Smoking pack-years: 45.00 Smoking status: Current e
[2021-05-18] MEDS: ALBUTEROL SULFATE (*SP) INHALER 2 PUFF INHALATION (07:57)
[2021-05-18 08:02] LABS: Basophils Absolute Auto 0.04 K/mm3 (0.00-0.10); Basophils Percent Auto 0.4 % (0.0-1.0); Eosinophils Absolute Auto 0.12 K/mm3 (0.02-0.50); Eosinophils Percent Auto 1.1 % (1.0-6.0); Hematocrit 37.5 % (35.0-49.0); Immature Granulocyte Absolute 0.05 K/mm3 (0.00-0.00); Immature Granulocyte Percent A 0.4 % (0.0-0.0); Lymphocytes Absolute Auto 1.11 K/mm3 (1.10-4.50); Lymphocytes Percent Auto 9.9 % (18.0-42.0); Mean Corpuscular Hemoglobin 29.1 pg (27.0-31.0); Mean Corpuscular Volume 90.8 fL (78.0-102.0); Mean Platelet Volume 9.8 fl (9.2-11.8); Monocytes Absolute Auto 0.74 K/mm3 (0.10-0.90); Monocytes Percent Auto 6.6 % (2.0-11.0); Neutrophils Absolute Auto 9.2 K/mm3 (1.7-7.2); Neutrophils Percent Auto 81.6 % (50.0-70.0); Platelet Count Result 324 K/mm3 (150-420); Red Blood Count 4.13 M/mm3 (4.20-5.40); Red Cell Distribution Width 15.1 % (11.6-14.4); White Blood Count 11.2 K/mm3 (4.8-10.8)
[2021-05-18 08:13] LABS: Influenza Control Valid (Valid)
[2021-05-18 08:15] LABS: Base Excess ABG 2.2 mmol/L (0-2); Oxygen Content ABG 16.4 %vol (16.0-22.0); Oxygen Saturation ABG 95.2 % (95-97); Oxyhemoglobin 93.5 % (94-100); PCO2 ABG 42.8 mmHg (35-45); PO2 ABG 75.8 mmHg (80-90); Total Hemoglobin 12.4 g/dL (12.0-18.0); pH ABG 7.42 (7.35-7.45)
[2021-05-18 08:16] LABS: Device NASAL CANNULA; Modified Allen's Test Pass; Site Drawn LEFT RADIAL
[2021-05-18 08:17] LABS: INR 1.2; Prothrombin Time 12.2 Seconds (9.50-12.10)
[2021-05-18 08:19] LABS: D Dimer 1.36 mg/L (0.19-0.50)
--- NOTE | 2021-05-18 08:24 | PC.NURSE ---
pt resting per cot, eyes closed, warm blanket given. call hernandez in reach. lights dimmed for sleep.
[2021-05-18 08:25] LABS: Alanine Aminotransferase 23 U/L (14-59); Albumin Level 2.8 g/dL (3.4-5.0); Alkaline Phosphatase 91 U/L (46-116); Aspartate Amino Transferase 33 U/L (15-37); Bilirubin,Total 0.4 mg/dL (0.00-1.00); Blood Urea Nitrogen 34 mg/dL (7-18); Calcium 10.3 mg/dL (8.5-10.1); Carbon Dioxide 33 mmol/L (21-32); Estimated CRCL calculation 59 ml/min; Estimated Glomerular Filt Rate > 60; Glucose 109 mg/dL (70-99); Magnesium 2.2 mg/dL (1.8-2.4); NT Pro B Type Natriuretic Pept 321 pg/mL (0-125); Total Protein 8.4 g/dL (6.4-8.2); Troponin I 11.1 ng/L (0.00-60.4)
[2021-05-18 08:29] LABS: Anion Gap 8 mmol/L (8-16); Chloride 87 mmol/L (98-108); Osmolality Calculated 274 mOsm/kg (285-295); Potassium 2.3 mmol/L (3.5-5.1); Sodium 128 mmol/L (136-145)
[2021-05-18 08:42] LABS: SARS-CoV-2 RNA PCR Negative (Negative)
[2021-05-18] MEDS: KCL 20 MEQ/SW 100 ML 100 ML 50 MEQ IVPB ×2 (08:55→14:04)
--- NOTE | 2021-05-18 09:13 | PC.NURSE ---
pt to xray for ct chest per wheelchair. pt to bathroom prior to xray, specimen collected.
[2021-05-18 09:15] LABS: Add Urine Microscopic? YES; Appearance Urine Clear (Clear); Bilirubin Urine Negative (Negative); Blood Urine Negative (Negative); Color Urine Light Yellow (Yellow); Glucose Urine UA Negative (Negative); Ketones Urine Negative (Negative); Leukocyte Esterase Ur 1+ (Negative); Nitrate Urine Negative (Negative); Protein Urine Negative (Negative)
[2021-05-18 09:26] LABS: Bacteria Urine Trace /hpf; RBC Urine None seen /hpf (0-2); Squamous Epithelial Cell Urine Few /hpf (Few); WBC Urine 0-3 /hpf (0-3)
[2021-05-18] MEDS: IPRATROPIUM 0.5 MG/ALBUTEROL SULFATE 2.5 MG AMPUL.NEB 3 ML INHALATION ×3 (09:46→18:06)
[2021-05-18] MEDS: MORPHINE SULFATE (*CRX) 4 MG/ML INJ IM (10:05)
[2021-05-18] MEDS: SODIUM CHLORIDE 0.9% IV 1,000 ML 100 ML IV CONT ×2 (10:50→18:30)
--- NOTE | 2021-05-18 11:00 | PC.NURSE ---
Patient brought up from ED per wheelchair, transferred to bed per stand by assist. Oriented to room and call light.
[2021-05-18] MEDS: methylPREDNISolone SOD SUCC 40 MG VIAL IV PUSH ×2 (12:07→17:07)
[2021-05-18] MEDS: GABAPENTIN 300 MG CAPSULE PO ×2 (13:13→17:07)
--- NOTE | 2021-05-18 13:28 | PM.IMHP ---
H&P: HPI History of Present Illness Date/Time: 05/18/21 13:28 this is a 55-year-old female that presents to our emergency with complaints of shortness of breath and pain to her right shoulder, back and neck. Patient recently diagnosed with lung CA and history of hepatitis C. Patient notes that she has been short of breath for couple of days even with the use of her oxygen . WBC 11.2 hemoglobin 12.0 hematocrit 37, platelet 324 D-dimer 1.36 sodium 128, potassium 2.3, creatinine 0.93, BUN 34, glucose 109, magnesium 3.7, total bilirubin 0.4, AST 33, ALT 23, troponin 11.1, BNP 321, UA positive for leukocyte sloan and bacteria, Covid and influenza negative, CTA does not indicate pulmonary embolism, imaging indicate brainarterial aneurysm. Patient being admitted for pain management, pneumonia , COPD,and UTI. patient notes that her shortness of breath has improved he she is still experiencing the pain to her right shoulder right shoulder back and neck. Patient denies cp, palpitation, diarrhea, constipation, lightheadness, headache, dizziness or chills and fevers. Chief Complaint: sob Review of Systems Review of Systems: A 14 organ system Review of Systems was performed and pertinent positives included in the HPI, otherwise remaining ROS is negative. [facility] Past Medical History Medical History Hepatitis C Small cell lung cancer Family History Family History Other Family history non-contributory Social History Social History Smoking packs per day: 1.5 Smoking cigarettes per day: 30.0 Years smoked: 30 Smoking pack-years: 45.00 Smoking status: Current every day smoker Additional smoking assessment comments: down to 1/2 pack Alcohol intake: never Substance use: former Spiritual care concerns: No Meds Home Medications and Allergies Home Medications Medication Instructions Recorded Confirmed Type Incruse Ellipta 1 inh INHALATION DAILY 03/26/21 05/18/21 History Vitamin Plus Low Iron 1 tablet PO DAILY 03/26/21 05/18/21 History Stomach Relief See Rx Instructions .ROUTE 03/26/21 05/18/21 History .COMPLEX PRN acetaminophen 1,000 mg PO TID 03/26/21 05/18/21 History artificial tears solution 1 drp OPHTHALMIC (EYE) Q6-8H PRN 03/26/21 05/18/21 History cetirizine 10 mg PO HS 03/26/21 05/18/21 History cholecalciferol (vitamin D3) 50 mcg PO DAILY 03/26/21 05/18/21 History [Vitamin D3] clonazepam 0.5 mg PO BID 03/26/21 05/18/21 History cyclobenzaprine 10 mg PO TID PRN 03/26/21 05/18/21 History diphenhydramine HCl [Allergy 50 mg PO HS PRN 03/26/21 05/18/21 History (diphenhydramine)] divalproex 500 mg PO BID 03/26/21 05/18/21 History fluoxetine 40 mg PO DAILY 03/26/21 05/18/21 History fluticasone propionate 2 spray INTRANASAL DAILY 03/26/21 05/18/21 History furosemide 40 mg PO DAILY 03/26/21 05/18/21 History gabapentin 300 mg PO TID 03/26/21 05/18/21 History ibuprofen 800 mg PO TID PRN 03/26/21 05/18/21 History levothyroxine 125 mcg PO DAILY 03/26/21 05/18/21 History loperamide [Anti-Diarrheal 2 mg PO Q4H PRN 03/26/21 05/18/21 History (loperamide)] magnesium hydroxide [Milk of 15 ml PO DAILY PRN 03/26/21 05/18/21 History Magnesia] melatonin 10 mg PO HS PRN 03/26/21 05/18/21 History metolazone 5 mg PO DAILY 03/26/21 05/18/21 History nicotine 1 patch TRANSDERMAL DAILY 03/26/21 05/18/21 History omeprazole 20 mg PO DAILY 03/26/21 05/18/21 History potassium chloride 40 meq PO BID 03/26/21 05/18/21 History sennosides [senna] 8.6 mg PO DAILY PRN 03/26/21 05/18/21 History simethicone 80 mg PO Q6-8H PRN 03/26/21 05/18/21 History zolpidem 5 mg PO HS 03/26/21 05/18/21 History albuterol sulfate [Proventil HFA] 2 puff INHALATION QIDRT PRN 30 04/03/21 05/18/21 Rx Days g allopurinol 100 mg PO BID 60 Days #120 tablet 04/03/21 05/18/21 Rx docusa
[2021-05-18] MEDS: MORPHINE SULFATE (*CRX) 2 MG/ML INJ IV PUSH (13:58)
[2021-05-18] MEDS: CYCLOBENZAPRINE HCL 10 MG TABLET PO (13:59)
[2021-05-18] MEDS: POTASSIUM CHLORIDE 20 MEQ TABLET 40 MEQ PO (13:59)
[2021-05-18] MEDS: allopurinoL 100 MG TABLET PO (17:07)
[2021-05-18] MEDS: clonazePAM (*CRX) 0.5 MG TABLET 1 MG PO (17:07)
[2021-05-18] MEDS: DIVALPROEX SODIUM ER 500 MG TAB.24H PO (17:07)
[2021-05-18 18:32] LABS: Potassium 3.1 mmol/L (3.5-5.1)
--- NOTE | 2021-05-18 20:20 | PC.NURSE ---
Patient's brother called to check on patient's status.
[2021-05-18] MEDS: ZOLPIDEM TARTRATE (*CRX) 5 MG TABLET PO (21:10)
[2021-05-18] MEDS: HYDROcodone/acetaminophen (*CRX) 10-325 MG TABLET 1 TAB PO (21:10)
[2021-05-18] MEDS: LORATADINE 10 MG TABLET PO (21:10)
[2021-05-19] VITALS (15 sets, daily range): BP systolic 102–115; BP diastolic 65–84; PULSE 76–106; RESP 14–22; TEMP 35.8–36.6; O2SAT 86–100
[2021-05-19] MEDS: methylPREDNISolone SOD SUCC 40 MG VIAL IV PUSH ×4 (00:13→21:00)
[2021-05-19] MEDS: IPRATROPIUM 0.5 MG/ALBUTEROL SULFATE 2.5 MG AMPUL.NEB 3 ML INHALATION ×4 (00:14→19:03)
[2021-05-19] MEDS: SODIUM CHLORIDE 0.9% IV 1,000 ML 100 ML IV CONT ×2 (04:37→16:29)
[2021-05-19] MEDS: HYDROcodone/acetaminophen (*CRX) 10-325 MG TABLET 1 TAB PO ×3 (04:39→17:34)
[2021-05-19 05:30] LABS: Hematocrit 34.2 % (35.0-49.0); Hemoglobin 10.8 g/dL (12.0-15.0); Mean Corpuscular HGB Conc 31.6 g/dL (32.0-36.0); Mean Corpuscular Hemoglobin 28.6 pg (27.0-31.0); Mean Corpuscular Volume 90.7 fL (78.0-102.0); Mean Platelet Volume 9.7 fl (9.2-11.8); Platelet Count Result 283 K/mm3 (150-420); Red Blood Count 3.77 M/mm3 (4.20-5.40); Red Cell Distribution Width 14.8 % (11.6-14.4); White Blood Count 7.1 K/mm3 (4.8-10.8)
[2021-05-19 05:56] LABS: Alanine Aminotransferase 20 U/L (14-59); Albumin Level 2.3 g/dL (3.4-5.0); Alkaline Phosphatase 75 U/L (46-116); Anion Gap 10 mmol/L (8-16); Aspartate Amino Transferase 21 U/L (15-37); Bilirubin,Total 0.2 mg/dL (0.00-1.00); Blood Urea Nitrogen 21 mg/dL (7-18); Calcium 9.3 mg/dL (8.5-10.1); Carbon Dioxide 27 mmol/L (21-32); Chloride 95 mmol/L (98-108); Estimated CRCL calculation 76 ml/min; Estimated Glomerular Filt Rate > 60; Glucose 150 mg/dL (70-99); Magnesium 2.1 mg/dL (1.8-2.4); NT Pro B Type Natriuretic Pept 419 pg/mL (0-125); Osmolality Calculated 280 mOsm/kg (285-295); Sodium 132 mmol/L (136-145); Total Protein 7.2 g/dL (6.4-8.2)
[2021-05-19] MEDS: LEVOTHYROXINE SODIUM 100 MCG, LEVOTHYROXINE SODIUM 25 MCG 125 MCG PO (06:37)
--- NOTE | 2021-05-19 07:54 | P.PN_ITS ---
Progress Note: A&P Assessment and Plan (1) Small cell lung cancer: Code(s): C34.90 - Malignant neoplasm of unspecified part of unspecified bronchus or lung Status: Acute Assessment and Plan: * Patient recently diagnosed with lung ca * Follow-up with oncology and radiology * imaging indicate worsening mass * continue supplementary oxygen to keep desats about 90% (2) Metastatic disease: Code(s): C79.9 - Secondary malignant neoplasm of unspecified site Status: Acute Assessment and Plan: * recent lymph node biopsy completed-Successful Ultrasound-guided biopsy of a 4.5 x 2.7 x 2.3 cm right supraclavicular mass suspicious for metastatic lymphadenopathy of lung primary based on CT imaging dated 03/27/2021. * biopsy indicates-SMALL CELL CARCINOMA COMPATIBLE WITH METASTATIC SMALL CELL LUNG CARCINOMA. * follow-up with oncology and radiology * imaging indicate worsening mass and supraclavicle lymph nodes (3) Tachycardia: Code(s): R00.0 - Tachycardia, unspecified Status: Acute Assessment and Plan: * continue telemetry * heart rate less than 120 * started low-dose beta-cyn for rate control (4) PNA (pneumonia): Code(s): J18.9 - Pneumonia, unspecified organism Status: Acute Assessment and Plan: * imaging indicates pneumonia * continue Rocephin azithromycin day 1 * wbc's 11.2>7.1 (5) Brain aneurysm: Code(s): I67.1 - Cerebral aneurysm, nonruptured Status: Acute Assessment and Plan: * head CT indicates a cerebral arterial aneurysm measuring 6 mm will * follow-up with MRI. (6) Hypokalemia: Code(s): E87.6 - Hypokalemia Status: Acute Assessment and Plan: * potassium 2.3>3.1>3.0 * a total of 40 mEq given * repeat potassium at 6:00 a.m. (7) UTI (urinary tract infection): Code(s): N39.0 - Urinary tract infection, site not specified Status: Acute Assessment and Plan: * UA with leukocytes and bacteria * continue Rocephin and azithromycin * (8) Elevated d-dimer: Code(s): R79.89 - Other specified abnormal findings of blood chemistry Status: Acute Assessment and Plan: * D-dimer 1.36 * CTA does not indicate PE (9) COPD (chronic obstructive pulmonary disease): Code(s): J44.9 - Chronic obstructive pulmonary disease, unspecified Status: Acute Assessment and Plan: * continue azithromycin with nebulizers ,Solu-Medrol and supplementary oxygen Subjective Date/time seen: 05/19/21 07:54 Patient notes that her breathing has improved, she also notes that each time she consume liquid she chokes. will order a bedside swallow eval for this patient. Patient denies cp, sob, palpitation, diarrhea, constipation, lightheadness, headache, dizziness or chills and fevers. Review of Systems Review of Systems: A 14 organ system Review of Systems was performed and pertinent positives included in the HPI, otherwise Exam Narrative: GENERAL: This is a well-nourished, well-developed patient, in no apparent distress. HEAD: normocephalic, atraumatic. EYES: PERRL. Sclera clear/white. Vision is grossly intact. EARS: External ears normal, auditory canals clear and without drainage, TMs normal without perforation. Hearing grossly intact. NOSE: External nose normal with no obvious nasal discharge, nares without redness, no rhinorrhea. THROAT: Mucous membranes moist, posterior pharynx clear. NECK: Neck supple,tenderness without to the right neck with edema
--- NOTE | 2021-05-19 07:54 | WPDPN ---
Progress Note: A&P Assessment and Plan (1) Small cell lung cancer: Code(s): C34.90 - Malignant neoplasm of unspecified part of unspecified bronchus or lung Status: Acute Assessment and Plan: Patient recently diagnosed with lung ca Follow-up with oncology and radiology imaging indicate worsening mass continue supplementary oxygen to keep desats about 90% (2) Metastatic disease: Code(s): C79.9 - Secondary malignant neoplasm of unspecified site Status: Acute Assessment and Plan: recent lymph node biopsy completed-Successful Ultrasound-guided biopsy of a 4.5 x 2.7 x 2.3 cm right supraclavicular mass suspicious for metastatic lymphadenopathy of lung primary based on CT imaging dated 03/27/2021. biopsy indicates-SMALL CELL CARCINOMA COMPATIBLE WITH METASTATIC SMALL CELL LUNG CARCINOMA. follow-up with oncology and radiology imaging indicate worsening mass and supraclavicle lymph nodes (3) Tachycardia: Code(s): R00.0 - Tachycardia, unspecified Status: Acute Assessment and Plan: continue telemetry heart rate less than 120 started low-dose beta-cyn for rate control (4) PNA (pneumonia): Code(s): J18.9 - Pneumonia, unspecified organism Status: Acute Assessment and Plan: imaging indicates pneumonia continue Rocephin azithromycin day 1 wbc's 11.2>7.1 (5) Brain aneurysm: Code(s): I67.1 - Cerebral aneurysm, nonruptured Status: Acute Assessment and Plan: head CT indicates a cerebral arterial aneurysm measuring 6 mm will follow-up with MRI. (6) Hypokalemia: Code(s): E87.6 - Hypokalemia Status: Acute Assessment and Plan: potassium 2.3>3.1>3.0 a total of 40 mEq given repeat potassium at 6:00 a.m. (7) UTI (urinary tract infection): Code(s): N39.0 - Urinary tract infection, site not specified Status: Acute Assessment and Plan: UA with leukocytes and bacteria continue Rocephin and azithromycin (8) Elevated d-dimer: Code(s): R79.89 - Other specified abnormal findings of blood chemistry Status: Acute Assessment and Plan: D-dimer 1.36 CTA does not indicate PE (9) COPD (chronic obstructive pulmonary disease): Code(s): J44.9 - Chronic obstructive pulmonary disease, unspecified Status: Acute Assessment and Plan: continue azithromycin with nebulizers ,Solu-Medrol and supplementary oxygen Subjective Date/time seen: 05/19/21 07:54 Patient notes that her breathing has improved, she also notes that each time she consume liquid she chokes. will order a bedside swallow eval for this patient. Patient denies cp, sob, palpitation, diarrhea, constipation, lightheadness, headache, dizziness or chills and fevers. Review of Systems Review of Systems: A 14 organ system Review of Systems was performed and pertinent positives included in the HPI, otherwise Exam Narrative: GENERAL: This is a well-nourished, well-developed patient, in no apparent distress. HEAD: normocephalic, atraumatic. EYES: PERRL. Sclera clear/white. Vision is grossly intact. EARS: External ears normal, auditory canals clear and without drainage, TMs normal without perforation. Hearing grossly intact. NOSE: External nose normal with no obvious nasal discharge, nares without redness, no rhinorrhea. THROAT: Mucous membranes moist, posterior pharynx clear. NECK: Neck supple,tenderness without to the right neck with edema CARDIOVASCULAR: Regular rate and rhythm without murmurs, gallops, or rubs. RESPIRATORY: Clear to auscultation. Breath sounds equal bilaterally. No wheezes, rales, or rhonchi. GASTROINTESTINAL: Abdomen hard, non-tender, nondistended. Bowel sounds are active. No hepato-splenomegaly, or palpable masses. No guarding. SKIN: warm, intact with no suspicious lesions or rash, good texture and turgor. NEURO: awake, alert, and oriented to person, place an
--- NOTE | 2021-05-19 08:49 | PC.NURSE ---
noted to be coughing on thin liquids. pt claims this is nothing new. patient safety coordinator ordered speech eval. email left for speech.
[2021-05-19] MEDS: METOPROLOL SUCCINATE EXT REL 12.5 MG TABCR PO (09:06)
[2021-05-19] MEDS: NICOTINE (*PBKC) 21 MG PATCH 1 PATCH TRANSDERM (09:07)
[2021-05-19] MEDS: UMECLIDINIUM BROMIDE 62.5 MCG ELLIPTA 1 PUFF INHALATION (09:07)
[2021-05-19] MEDS: ENOXAPARIN 40 MG/0.4 ML SYRINGE SUB-Q (09:10)
[2021-05-19] MEDS: FLUTICASONE PROPIONATE 0.05% NA SPR 16 GM BTL (*BKC) 2 SPRAY NASAL (09:10)
[2021-05-19] MEDS: POTASSIUM CHLORIDE 20 MEQ TABLET 40 MEQ PO (09:11)
[2021-05-19] MEDS: clonazePAM (*CRX) 0.5 MG TABLET 1 MG PO ×2 (09:12→16:27)
[2021-05-19] MEDS: FLUoxetine HCL 10 MG CAPSULE 40 MG PO (09:12)
[2021-05-19] MEDS: PANTOPRAZOLE 40 MG TABLET PO (09:12)
[2021-05-19] MEDS: DIVALPROEX SODIUM ER 500 MG TAB.24H PO ×2 (09:13→17:40)
[2021-05-19] MEDS: FUROSEMIDE 40 MG TABLET PO (09:13)
[2021-05-19] MEDS: GABAPENTIN 300 MG CAPSULE PO ×3 (09:13→16:28)
[2021-05-19] MEDS: CHOLECALCIFEROL 1,000 UNITS TABLET 2000 UNITS PO (09:13)
[2021-05-19] MEDS: metOLazone 2.5 MG TABLET 5 MG PO (09:13)
[2021-05-19] MEDS: MULTIVITAMINS THERAPEUTIC TAB (*BKC) 1 TABLET PO (09:14)
[2021-05-19] MEDS: allopurinoL 100 MG TABLET PO ×2 (09:14→16:26)
[2021-05-19] MEDS: PSYLLIUM POWDER PACKET 1 PACKET PO (09:14)
[2021-05-19] MEDS: CYCLOBENZAPRINE HCL 10 MG TABLET PO ×2 (09:31→16:27)
--- NOTE | 2021-05-19 16:30 | PCSTNOTE ---
Please refer to the Bedside Swallow Evaluation in the EMR. Please note, silent aspiration cannot be ruled out at bedside.
[2021-05-19] MEDS: LORATADINE 10 MG TABLET PO (21:00)
[2021-05-19] MEDS: ZOLPIDEM TARTRATE (*CRX) 5 MG TABLET PO (21:01)
[2021-05-19] MEDS: MELATONIN 5 MG TABLET 10 MG PO (21:01)
[2021-05-20] VITALS (15 sets, daily range): BP systolic 100–124; BP diastolic 60–80; PULSE 82–103; RESP 14–19; TEMP 36.2–36.9; O2SAT 90–98
[2021-05-20] MEDS: IPRATROPIUM 0.5 MG/ALBUTEROL SULFATE 2.5 MG AMPUL.NEB 3 ML INHALATION ×5 (00:06→22:43)
[2021-05-20] MEDS: HYDROcodone/acetaminophen (*CRX) 10-325 MG TABLET 1 TAB PO ×3 (00:35→19:34)
[2021-05-20] MEDS: ACETAMINOPHEN 325 MG TABLET 650 MG PO ×2 (03:08→15:14)
[2021-05-20] MEDS: CYCLOBENZAPRINE HCL 10 MG TABLET PO (03:10)
[2021-05-20] MEDS: methylPREDNISolone SOD SUCC 40 MG VIAL IV PUSH ×3 (04:08→20:25)
--- NOTE | 2021-05-20 04:14 | PC.NURSE ---
This designer/writer found the pt without her oxygen ambulating to the bathroom independently. Pt was educated that she is a fall risk and to use her call light to notify the nursing staff that she needs to use the restroom. Pt verbalized understanding, but reinforcement is needed.
[2021-05-20] MEDS: LEVOTHYROXINE SODIUM 100 MCG, LEVOTHYROXINE SODIUM 25 MCG 125 MCG PO (05:53)
[2021-05-20 05:55] LABS: Hematocrit 34.1 % (35.0-49.0); Hemoglobin 10.8 g/dL (12.0-15.0); Mean Corpuscular HGB Conc 31.7 g/dL (32.0-36.0); Mean Corpuscular Hemoglobin 28.8 pg (27.0-31.0); Mean Corpuscular Volume 90.9 fL (78.0-102.0); Mean Platelet Volume 9.6 fl (9.2-11.8); Platelet Count Result 307 K/mm3 (150-420); Red Blood Count 3.75 M/mm3 (4.20-5.40); Red Cell Distribution Width 14.7 % (11.6-14.4); White Blood Count 11.8 K/mm3 (4.8-10.8)
[2021-05-20 06:13] LABS: Alanine Aminotransferase 21 U/L (14-59); Albumin Level 2.3 g/dL (3.4-5.0); Alkaline Phosphatase 74 U/L (46-116); Anion Gap 9 mmol/L (8-16); Aspartate Amino Transferase 24 U/L (15-37); Bilirubin,Total 0.2 mg/dL (0.00-1.00); Blood Urea Nitrogen 21 mg/dL (7-18); Calcium 9.3 mg/dL (8.5-10.1); Carbon Dioxide 28 mmol/L (21-32); Chloride 94 mmol/L (98-108); Estimated CRCL calculation 75 ml/min; Estimated Glomerular Filt Rate > 60; Glucose 114 mg/dL (70-99); NT Pro B Type Natriuretic Pept 701 pg/mL (0-125); Osmolality Calculated 276 mOsm/kg (285-295); Potassium 2.8 mmol/L (3.5-5.1); Sodium 131 mmol/L (136-145)
--- NOTE | 2021-05-20 06:45 | PC.NURSE ---
Pt transferred to wheelchair then handed off to transport for the pt's MRI. Oxygen running at 4 L at time of handoff and pt did not have any needs at this time. Blankets were wrapped around [employer] to protect her from the cold weather outside.
[2021-05-20] MEDS: ENOXAPARIN 40 MG/0.4 ML SYRINGE SUB-Q (08:26)
[2021-05-20] MEDS: PSYLLIUM POWDER PACKET 1 PACKET PO (08:26)
[2021-05-20] MEDS: METOPROLOL SUCCINATE EXT REL 12.5 MG TABCR PO (08:26)
[2021-05-20] MEDS: CHOLECALCIFEROL 1,000 UNITS TABLET 2000 UNITS PO (08:27)
[2021-05-20] MEDS: PANTOPRAZOLE 40 MG TABLET PO (08:27)
[2021-05-20] MEDS: metOLazone 2.5 MG TABLET 5 MG PO (08:27)
[2021-05-20] MEDS: GABAPENTIN 300 MG CAPSULE PO ×3 (08:27→17:52)
[2021-05-20] MEDS: FLUoxetine HCL 10 MG CAPSULE 40 MG PO (08:28)
[2021-05-20] MEDS: FUROSEMIDE 40 MG TABLET PO (08:28)
[2021-05-20] MEDS: clonazePAM (*CRX) 0.5 MG TABLET 1 MG PO ×2 (08:28→17:51)
[2021-05-20] MEDS: allopurinoL 100 MG TABLET PO ×2 (08:28→17:52)
[2021-05-20] MEDS: DIVALPROEX SODIUM ER 500 MG TAB.24H PO ×2 (08:28→17:52)
[2021-05-20] MEDS: FLUTICASONE PROPIONATE 0.05% NA SPR 16 GM BTL (*BKC) 2 SPRAY NASAL (08:29)
[2021-05-20] MEDS: NICOTINE (*PBKC) 21 MG PATCH 1 PATCH TRANSDERM (08:29)
[2021-05-20] MEDS: MULTIVITAMINS THERAPEUTIC TAB (*BKC) 1 TABLET PO (08:29)
[2021-05-20] MEDS: UMECLIDINIUM BROMIDE 62.5 MCG ELLIPTA 1 PUFF INHALATION (08:30)
[2021-05-20 10:17] LABS: Base Excess ABG 0.4 mmol/L (0-2); HCO3 ABG 27.1 mmol/L (23-29); Oxygen Content ABG 16.4 %vol (16.0-22.0); Oxygen Saturation ABG 93.1 % (95-97); Oxyhemoglobin 92.6 % (94-100); PCO2 ABG 52.6 mmHg (35-45); PO2 ABG 72.2 mmHg (80-90); Total Hemoglobin 12.6 g/dL (12.0-18.0); pH ABG 7.33 (7.35-7.45)
[2021-05-20 10:19] LABS: Device NASAL CANNULA; Liters per Minute 4.5 LPM; Modified Allen's Test Pass; Site Drawn RIGHT RADIAL
[2021-05-20] MEDS: POTASSIUM CHLORIDE 20 MEQ PACKET (FOR LIQUID) 40 MEQ FEED TUBE (10:20)
[2021-05-20] MEDS: HYDROmorphone HCL INJ (*CRX) 2 MG/ML VIAL 0.5 MG IV PUSH (10:53)
--- NOTE | 2021-05-20 11:12 | PM.EVENT ---
Event Note Event Note Event Note: decided to go with the Dilaudid instead of Toradol. Informed nurse not to give Toradol
[2021-05-20] MEDS: FUROSEMIDE INJ 40 MG/4 ML VIAL 80 MG IV PUSH (11:13)
--- NOTE | 2021-05-20 13:25 | P.PN_ITS ---
Progress Note: A&P Assessment and Plan (1) Small cell lung cancer: Code(s): C34.90 - Malignant neoplasm of unspecified part of unspecified bronchus or lung <Gene AkhtarMICHAEL - Last Filed: 05/20/21 13:55> Status: Acute <Gene AkhtarMICHAEL - Last Filed: 05/20/21 13:55> Assessment and Plan: * Patient recently diagnosed with lung ca * Follow-up with oncology and radiology * imaging indicate worsening mass * continue supplementary oxygen to keep desats about 90% <Gene AkhtarALMITAC - Last Filed: 05/20/21 13:55> (2) Metastatic disease: Code(s): C79.9 - Secondary malignant neoplasm of unspecified site <Gene AkhtarMICHAEL - Last Filed: 05/20/21 13:55> Status: Acute <Gene AkhtarDAVIDRoshniBradley - Last Filed: 05/20/21 13:55> Assessment and Plan: * recent lymph node biopsy completed-Successful Ultrasound-guided biopsy of a 4.5 x 2.7 x 2.3 cm right supraclavicular mass suspicious for metastatic lymphadenopathy of lung primary based on CT imaging dated 03/27/2021. * biopsy indicates-SMALL CELL CARCINOMA COMPATIBLE WITH METASTATIC SMALL CELL LUNG CARCINOMA. * follow-up with oncology and radiology * imaging indicate worsening mass and supraclavicle lymph nodes * mri and neck mri pending <Gene Santos MICHAEL Akhtar - Last Filed: 05/20/21 13:55> (3) Tachycardia: Code(s): R00.0 - Tachycardia, unspecified <Gene AkhtarALMITAC - Last Filed: 05/20/21 13:55> Status: Acute <Gene AkhtarMICHAEL - Last Filed: 05/20/21 13:55> Assessment and Plan: * continue telemetry * heart rate less than 120 * started low-dose beta-cyn for rate control <Gene SnyderMICHAEL Lee - Last Filed: 05/20/21 13:55> (4) PNA (pneumonia): Code(s): J18.9 - Pneumonia, unspecified organism <DAVID Crystal-C - Last Filed: 05/20/21 13:55> Status: Acute <DAVID Crystal-C - Last Filed: 05/20/21 13:55> Assessment and Plan: * imaging indicates pneumonia * continue Rocephin azithromycin day 1 * wbc's 11.2>7.1>11.8 <DAVID Crystal-C - Last Filed: 05/20/21 13:55> (5) Brain aneurysm: Code(s): I67.1 - Cerebral aneurysm, nonruptured <DAVID Crystal-C - Last Filed: 05/20/21 13:55> Status: Acute <ALMITA CrystalC - Last Filed: 05/20/21 13:55> Assessment and Plan: * head CT indicates a cerebral arterial aneurysm measuring 6 mm will * follow-up with MRI. <Gene Akhtar ALMITAC - Last Filed: 05/20/21 13:55> (6) Hypokalemia: Code(s): E87.6 - Hypokalemia <DAVID Crystal-C - Last Filed: 05/20/21 13:55> Status: Acute <ALMITA CrystalC - Last Filed: 05/20/21 13:55> Assessment and Plan: * potassium 2.3>3.1>3.0>2.8 * continue supplements <DAVID Crystal-C - Last Filed: 05/20/21 13:55> (7) UTI (urinary tract infection): Code(s): N39.0 - Urinary tract infection, site not specified <DAVID Crystal-C - Last Filed: 05/20/21 13:55> Status: Acute <DAVID Crystal-C - Last Filed: 05/20/21 13:55> Assessment and Plan: * UA with leukocytes and bacteria * continue Rocephin and azithromycin * <Gene Akhtar DAVID-C - Last Filed: 05/20/21 13:55> (8) Elevated d-dimer: Code(s): R79.89 - Other specified abnormal findings of blood chemistry <MICHAEL Crystal - Last Filed: 05/20/21 13:55> Status: Acute <MICHAEL Crystal - Last Filed: 05/20/21 13:55> Assessment
--- NOTE | 2021-05-20 13:25 | WPDPN ---
Progress Note: A&P Assessment and Plan (1) Small cell lung cancer: Code(s): C34.90 - Malignant neoplasm of unspecified part of unspecified bronchus or lung <Gene Santos MICHAEL Akhtar - Last Filed: 05/20/21 13:55> Status: Acute <Gene AkhtarMICHAEL - Last Filed: 05/20/21 13:55> Assessment and Plan: Patient recently diagnosed with lung ca Follow-up with oncology and radiology imaging indicate worsening mass continue supplementary oxygen to keep desats about 90% <Gene SnyderMICHAEL Lee - Last Filed: 05/20/21 13:55> (2) Metastatic disease: Code(s): C79.9 - Secondary malignant neoplasm of unspecified site <Gene Santos MICHAEL Akhtar - Last Filed: 05/20/21 13:55> Status: Acute <Gene AkhtarDAVIDRoshniBradley - Last Filed: 05/20/21 13:55> Assessment and Plan: recent lymph node biopsy completed-Successful Ultrasound-guided biopsy of a 4.5 x 2.7 x 2.3 cm right supraclavicular mass suspicious for metastatic lymphadenopathy of lung primary based on CT imaging dated 03/27/2021. biopsy indicates-SMALL CELL CARCINOMA COMPATIBLE WITH METASTATIC SMALL CELL LUNG CARCINOMA. follow-up with oncology and radiology imaging indicate worsening mass and supraclavicle lymph nodes mri and neck mri pending <Gene AkhtarDAVIDRoshniBradley - Last Filed: 05/20/21 13:55> (3) Tachycardia: Code(s): R00.0 - Tachycardia, unspecified <Gene AkhtarMICHAEL - Last Filed: 05/20/21 13:55> Status: Acute <Gene AkhtarDAVIDRoshniBradley - Last Filed: 05/20/21 13:55> Assessment and Plan: continue telemetry heart rate less than 120 started low-dose beta-cyn for rate control <Gene SnyderMICHAEL Lee - Last Filed: 05/20/21 13:55> (4) PNA (pneumonia): Code(s): J18.9 - Pneumonia, unspecified organism <Gene SnyderMICHAEL Lee - Last Filed: 05/20/21 13:55> Status: Acute <ALMITA CrystalC - Last Filed: 05/20/21 13:55> Assessment and Plan: imaging indicates pneumonia continue Rocephin azithromycin day 1 wbc's 11.2>7.1>11.8 <ALMITA CrystalC - Last Filed: 05/20/21 13:55> (5) Brain aneurysm: Code(s): I67.1 - Cerebral aneurysm, nonruptured <DAVID Crystal-C - Last Filed: 05/20/21 13:55> Status: Acute <ALMITA CrystalC - Last Filed: 05/20/21 13:55> Assessment and Plan: head CT indicates a cerebral arterial aneurysm measuring 6 mm will follow-up with MRI. <Gene Akhtar ALMITAC - Last Filed: 05/20/21 13:55> (6) Hypokalemia: Code(s): E87.6 - Hypokalemia <Gene Akhtar ALMITAC - Last Filed: 05/20/21 13:55> Status: Acute <ALMITA CrystalC - Last Filed: 05/20/21 13:55> Assessment and Plan: potassium 2.3>3.1>3.0>2.8 continue supplements <ALMITA CrystalC - Last Filed: 05/20/21 13:55> (7) UTI (urinary tract infection): Code(s): N39.0 - Urinary tract infection, site not specified <Gene Akhtar ALMITAC - Last Filed: 05/20/21 13:55> Status: Acute <Gene Akhtar DAVID-C - Last Filed: 05/20/21 13:55> Assessment and Plan: UA with leukocytes and bacteria continue Rocephin and azithromycin <Gene Akhtar DAVID-C - Last Filed: 05/20/21 13:55> (8) Elevated d-dimer: Code(s): R79.89 - Other specified abnormal findings of blood chemistry <Gene Akhtar DAVID-C - Last Filed: 05/20/21 13:55> Status: Acute <MICHAEL Crystal - Last Filed: 05/20/21 13:55> Assessment and Plan: D-dimer 1.36 CTA does not indicate PE <MICHAEL Crystal - Last Filed: 05/20/21 13:55> (9) COPD (chronic obstructive pulmonary disease): Code(s): J44.9 - Chronic obstructive pulmonary disease, unspecified <MICHAEL Crystal - Last Filed: 05/20/21 13:55> Status: Acute <MICHAEL Crystal - La
[2021-05-20] MEDS: POTASSIUM CHLORIDE 20 MEQ PACKET (FOR LIQUID) 40 MEQ PO (17:51)
[2021-05-20] MEDS: LORATADINE 10 MG TABLET PO (20:25)
[2021-05-20] MEDS: ZOLPIDEM TARTRATE (*CRX) 5 MG TABLET PO (20:25)
--- NOTE | 2021-05-20 20:57 | PC.NURSE ---
notified of patient's preliminary urine culture results. No new orders.
[2021-05-21] VITALS (8 sets, daily range): BP systolic 110–122; BP diastolic 60–77; PULSE 85–104; RESP 18–22; TEMP 35.8–36.9; O2SAT 91–98
[2021-05-21] MEDS: IPRATROPIUM 0.5 MG/ALBUTEROL SULFATE 2.5 MG AMPUL.NEB 3 ML INHALATION ×4 (01:14→17:59)
[2021-05-21] MEDS: methylPREDNISolone SOD SUCC 40 MG VIAL IV PUSH ×3 (03:25→20:39)
--- NOTE | 2021-05-21 05:15 | PC.NURSE ---
Pt up to the commode and passed a large amount of brown, formed stool. Pt also voided and returned to bed with standby assist of one.
[2021-05-21 05:36] LABS: Hematocrit 37.1 % (35.0-49.0); Hemoglobin 11.3 g/dL (12.0-15.0); Mean Corpuscular HGB Conc 30.5 g/dL (32.0-36.0); Mean Corpuscular Hemoglobin 27.9 pg (27.0-31.0); Mean Corpuscular Volume 91.6 fL (78.0-102.0); Mean Platelet Volume 9.6 fl (9.2-11.8); Platelet Count Result 351 K/mm3 (150-420); Red Blood Count 4.05 M/mm3 (4.20-5.40); Red Cell Distribution Width 15.1 % (11.6-14.4); White Blood Count 9.2 K/mm3 (4.8-10.8)
[2021-05-21 05:51] LABS: Alanine Aminotransferase 34 U/L (14-59); Albumin Level 2.5 g/dL (3.4-5.0); Alkaline Phosphatase 80 U/L (46-116); Anion Gap 7 mmol/L (8-16); Aspartate Amino Transferase 28 U/L (15-37); Bilirubin,Total 0.2 mg/dL (0.00-1.00); Blood Urea Nitrogen 23 mg/dL (7-18); Calcium 9.7 mg/dL (8.5-10.1); Carbon Dioxide 34 mmol/L (21-32); Chloride 96 mmol/L (98-108); Estimated CRCL calculation 68 ml/min; Estimated Glomerular Filt Rate > 60; Glucose 117 mg/dL (70-99); Magnesium 2.1 mg/dL (1.8-2.4); Osmolality Calculated 288 mOsm/kg (285-295); Potassium 2.6 mmol/L (3.5-5.1); Sodium 137 mmol/L (136-145); Total Protein 7.1 g/dL (6.4-8.2)
[2021-05-21 05:56] LABS: Lactic Acid Reflex 1.3 mmol/L (0.4-2.0)
[2021-05-21] MEDS: LEVOTHYROXINE SODIUM 100 MCG, LEVOTHYROXINE SODIUM 25 MCG 125 MCG PO (06:18)
[2021-05-21] MEDS: HYDROcodone/acetaminophen (*CRX) 10-325 MG TABLET 1 TAB PO ×3 (06:19→20:41)
--- NOTE | 2021-05-21 08:29 | P.PN_ITS ---
Progress Note: A&P Assessment and Plan (1) Small cell lung cancer: Code(s): C34.90 - Malignant neoplasm of unspecified part of unspecified bronchus or lung <Gene AkhtarMICHAEL - Last Filed: 05/21/21 10:49> Status: Acute <Gene Akhtar FLOOR MOLDER-C - Last Filed: 05/21/21 10:49> Assessment and Plan: * Patient recently diagnosed with lung ca * Follow-up with oncology and radiology * imaging indicate worsening mass * continue supplementary oxygen to keep desats about 90% <Gene Akhtar FLOOR MOLDER-C - Last Filed: 05/21/21 10:49> (2) Metastatic disease: Code(s): C79.9 - Secondary malignant neoplasm of unspecified site <Gene Akhtar FLOOR MOLDER-C - Last Filed: 05/21/21 10:49> Status: Acute <Gene AkhtarDAVIDRoshniBradley - Last Filed: 05/21/21 10:49> Assessment and Plan: * recent lymph node biopsy completed-Successful Ultrasound-guided biopsy of a 4.5 x 2.7 x 2.3 cm right supraclavicular mass suspicious for metastatic lymphadenopathy of lung primary based on CT imaging dated 03/27/2021. * biopsy indicates-SMALL CELL CARCINOMA COMPATIBLE WITH METASTATIC SMALL CELL LUNG CARCINOMA. * follow-up with oncology and radiology * imaging indicate worsening mass and supraclavicle lymph nodes * mri and neck mri pending <Gene AkhtarDAVIDRoshniBradley - Last Filed: 05/21/21 10:49> (3) Tachycardia: Code(s): R00.0 - Tachycardia, unspecified <Gene Akhtar FLOOR MOLDER-C - Last Filed: 05/21/21 10:49> Status: Acute <Gene Akhtar FLOOR MOLDER-Bradley - Last Filed: 05/21/21 10:49> Assessment and Plan: * continue telemetry * heart rate less than 120 * started low-dose beta-cyn for rate control <Gene Akhtar FLOOR MOLDER-Bradley - Last Filed: 05/21/21 10:49> (4) PNA (pneumonia): Code(s): J18.9 - Pneumonia, unspecified organism <Gene SnyderMICHAEL Lee - Last Filed: 05/21/21 10:49> Status: Acute <Gene Santos MICHAEL Akhtar - Last Filed: 05/21/21 10:49> Assessment and Plan: * imaging indicates pneumonia * continue Rocephin azithromycin day 1 * wbc's 11.2>7.1>11.8>9.2 <Juniorcassandra ClaudioMICHAEL Lee - Last Filed: 05/21/21 10:49> (5) Brain aneurysm: Code(s): I67.1 - Cerebral aneurysm, nonruptured <Juniorcassandra ClaudioMICHAEL Lee - Last Filed: 05/21/21 10:49> Status: Acute <Gene SnyderMICHAEL Lee - Last Filed: 05/21/21 10:49> Assessment and Plan: * head CT indicates a cerebral arterial aneurysm measuring 6 mm * MRI indicate - 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 * will need to follow up with specialist <MICHAEL Crystal - Last Filed: 05/21/21 10:49> (6) Hypokalemia: Code(s): E87.6 - Hypokalemia <Gene ClaudioMICHAEL Lee - Last Filed: 05/21/21 10:49> Status: Acute <Juniorcassandra ClaudioMICHAEL Lee - Last Filed: 05/21/21 10:49> Assessment and Plan: * potassium 2.3>3.1>3.0>2.8>2.6 * continue supplements <Gene ClaudioMICHAEL Lee - Last Filed: 05/21/21 10:49> (7) UTI (urinary tract infection): Code(s): N39.0 - Urinary tract infection, site not specified <MICHAEL Crystal - Last Filed: 05/21/21 10:49> Status: Acute <Gene ClaudioMICHAEL Lee - Last Filed: 05/21/21 10:49> Assessment and Plan: * UA with leukocytes and bacteria * continue Rocephin and azithromycin * ua culture with enetrococcus, sensitivity pending started macrobid <MICHAEL Crystal - Last Filed: 05/21/21 10:49> (8) Elevated d-dimer: Code(s): R79.89 - Other specified abnormal findings of bl
--- NOTE | 2021-05-21 08:29 | WPDPN ---
Progress Note: A&P Assessment and Plan (1) Small cell lung cancer: Code(s): C34.90 - Malignant neoplasm of unspecified part of unspecified bronchus or lung <Gene AkhtarMICHAEL - Last Filed: 05/21/21 10:49> Status: Acute <eGne Akhtar FLOORMAN-C - Last Filed: 05/21/21 10:49> Assessment and Plan: Patient recently diagnosed with lung ca Follow-up with oncology and radiology imaging indicate worsening mass continue supplementary oxygen to keep desats about 90% <Gene AkhtarMICHAEL - Last Filed: 05/21/21 10:49> (2) Metastatic disease: Code(s): C79.9 - Secondary malignant neoplasm of unspecified site <Gene AkhtarMICHAEL - Last Filed: 05/21/21 10:49> Status: Acute <Gene Akhtar FLOORMANRoshniBradley - Last Filed: 05/21/21 10:49> Assessment and Plan: recent lymph node biopsy completed-Successful Ultrasound-guided biopsy of a 4.5 x 2.7 x 2.3 cm right supraclavicular mass suspicious for metastatic lymphadenopathy of lung primary based on CT imaging dated 03/27/2021. biopsy indicates-SMALL CELL CARCINOMA COMPATIBLE WITH METASTATIC SMALL CELL LUNG CARCINOMA. follow-up with oncology and radiology imaging indicate worsening mass and supraclavicle lymph nodes mri and neck mri pending <Gene Akhtar FLOORMANRoshniBradley - Last Filed: 05/21/21 10:49> (3) Tachycardia: Code(s): R00.0 - Tachycardia, unspecified <Gene Akhtar FLOORMAN-C - Last Filed: 05/21/21 10:49> Status: Acute <Gene Akhtar FLOORMANRoshniBradley - Last Filed: 05/21/21 10:49> Assessment and Plan: continue telemetry heart rate less than 120 started low-dose beta-cyn for rate control <Gene AkhtarDAVIDRoshniBradley - Last Filed: 05/21/21 10:49> (4) PNA (pneumonia): Code(s): J18.9 - Pneumonia, unspecified organism <Gene Santos MICHAEL Akhtar - Last Filed: 05/21/21 10:49> Status: Acute <Gene Akhtar DAVID-C - Last Filed: 05/21/21 10:49> Assessment and Plan: imaging indicates pneumonia continue Rocephin azithromycin day 1 wbc's 11.2>7.1>11.8>9.2 <Gene Akhtar DAVID-C - Last Filed: 05/21/21 10:49> (5) Brain aneurysm: Code(s): I67.1 - Cerebral aneurysm, nonruptured <Gene Akhtar DAVID-C - Last Filed: 05/21/21 10:49> Status: Acute <Gene Akhtar DAVDI-C - Last Filed: 05/21/21 10:49> Assessment and Plan: head CT indicates a cerebral arterial aneurysm measuring 6 mm MRI indicate - 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 will need to follow up with specialist <Gene SnyderEnrique Hermilo FLOORMAN-C - Last Filed: 05/21/21 10:49> (6) Hypokalemia: Code(s): E87.6 - Hypokalemia <Gene Akhtar DAVID-C - Last Filed: 05/21/21 10:49> Status: Acute <Gene Akhtar ALMITAC - Last Filed: 05/21/21 10:49> Assessment and Plan: potassium 2.3>3.1>3.0>2.8>2.6 continue supplements <Gene Akhtar DAVID-C - Last Filed: 05/21/21 10:49> (7) UTI (urinary tract infection): Code(s): N39.0 - Urinary tract infection, site not specified <Gene Akhtar DAVID-C - Last Filed: 05/21/21 10:49> Status: Acute <Gene Akhtar DAVID-C - Last Filed: 05/21/21 10:49> Assessment and Plan: UA with leukocytes and bacteria continue Rocephin and azithromycin ua culture with enetrococcus, sensitivity pending started macrobid <Gene SnyderEnrique Akhtar FLOORMAN-C - Last Filed: 05/21/21 10:49> (8) Elevated d-dimer: Code(s): R79.89 - Other specified abnormal findings of blood chemistry <MICHAEL Crystal - Last Filed: 05/21/21 10:49> Status: Acute <MICHAEL Crystal - Last Filed: 05/21/21 10:49> Assessment and Plan: D-dimer 1.36 CTA does not indicate PE <MICHAEL Crystal - Last Filed: 05/21/21 10:49> (9) COPD (chronic obstructive pulmonary disease): Code(s): J44.9 -
[2021-05-21 09:25] LABS: NT Pro B Type Natriuretic Pept 383 pg/mL (0-125)
[2021-05-21] MEDS: METOPROLOL SUCCINATE EXT REL 12.5 MG TABCR PO (09:50)
[2021-05-21] MEDS: clonazePAM (*CRX) 0.5 MG TABLET 1 MG PO ×2 (09:50→17:55)
[2021-05-21] MEDS: POTASSIUM CHLORIDE 20 MEQ PACKET (FOR LIQUID) 40 MEQ PO ×2 (09:50→09:51)
[2021-05-21] MEDS: ENOXAPARIN 40 MG/0.4 ML SYRINGE SUB-Q (09:50)
[2021-05-21] MEDS: FLUoxetine HCL 10 MG CAPSULE 40 MG PO (09:51)
[2021-05-21] MEDS: CHOLECALCIFEROL 1,000 UNITS TABLET 2000 UNITS PO (09:51)
[2021-05-21] MEDS: DIVALPROEX SODIUM ER 500 MG TAB.24H PO ×2 (09:51→17:56)
[2021-05-21] MEDS: GABAPENTIN 300 MG CAPSULE PO ×3 (09:51→17:56)
[2021-05-21] MEDS: PANTOPRAZOLE 40 MG TABLET PO (09:52)
[2021-05-21] MEDS: metOLazone 2.5 MG TABLET 5 MG PO (09:52)
[2021-05-21] MEDS: allopurinoL 100 MG TABLET PO ×2 (09:52→17:56)
[2021-05-21] MEDS: MULTIVITAMINS THERAPEUTIC TAB (*BKC) 1 TABLET PO (09:52)
[2021-05-21] MEDS: NICOTINE (*PBKC) 21 MG PATCH 1 PATCH TRANSDERM (09:53)
[2021-05-21] MEDS: UMECLIDINIUM BROMIDE 62.5 MCG ELLIPTA 1 PUFF INHALATION (09:53)
[2021-05-21] MEDS: FLUTICASONE PROPIONATE 0.05% NA SPR 16 GM BTL (*BKC) 2 SPRAY NASAL (09:53)
[2021-05-21] MEDS: FUROSEMIDE 40 MG TABLET PO (09:53)
[2021-05-21 10:02] LABS: D Dimer 1.43 mg/L (0.19-0.50)
[2021-05-21] MEDS: NITROFURANTOIN MONOHYD MACROCR 100 MG CAP PO ×2 (10:06→20:39)
[2021-05-21] MEDS: FUROSEMIDE INJ 40 MG/4 ML VIAL IV PUSH (13:18)
[2021-05-21] MEDS: POTASSIUM CHLORIDE 20 MEQ TABLET 40 MEQ PO ×2 (17:55→20:40)
[2021-05-21] MEDS: ZOLPIDEM TARTRATE (*CRX) 5 MG TABLET PO (20:39)
[2021-05-21] MEDS: LORATADINE 10 MG TABLET PO (20:39)
[2021-05-22] VITALS (16 sets, daily range): BP systolic 105; BP diastolic 71; PULSE 101–125; RESP 17–21; TEMP 36.2; O2SAT 80–96
--- NOTE | 2021-05-22 00:27 | PC.NURSE ---
Pt was brought a sandwich and carton of milk per pt request. Pt was then ambulated to commode with Keena Ty RN. Pt then brought back to bed and call light within reach.
[2021-05-22] MEDS: IPRATROPIUM 0.5 MG/ALBUTEROL SULFATE 2.5 MG AMPUL.NEB 3 ML INHALATION ×3 (00:35→13:00)
[2021-05-22] MEDS: HYDROcodone/acetaminophen (*CRX) 10-325 MG TABLET 1 TAB PO ×2 (04:22→10:24)
[2021-05-22] MEDS: methylPREDNISolone SOD SUCC 40 MG VIAL IV PUSH (04:23)
[2021-05-22 05:21] LABS: Basophils Absolute Auto 0.01 K/mm3 (0.00-0.10); Basophils Percent Auto 0.1 % (0.0-1.0); Hematocrit 41.2 % (35.0-49.0); Hemoglobin 12.6 g/dL (12.0-15.0); Immature Granulocyte Absolute 0.06 K/mm3 (0.00-0.00); Immature Granulocyte Percent A 0.5 % (0.0-0.0); Lymphocytes Absolute Auto 1.03 K/mm3 (1.10-4.50); Lymphocytes Percent Auto 8.4 % (18.0-42.0); Mean Corpuscular HGB Conc 30.6 g/dL (32.0-36.0); Mean Corpuscular Hemoglobin 28.2 pg (27.0-31.0); Mean Corpuscular Volume 92.2 fL (78.0-102.0); Mean Platelet Volume 9.6 fl (9.2-11.8); Monocytes Absolute Auto 0.66 K/mm3 (0.10-0.90); Monocytes Percent Auto 5.4 % (2.0-11.0); Neutrophils Absolute Auto 10.5 K/mm3 (1.7-7.2); Neutrophils Percent Auto 85.6 % (50.0-70.0); Platelet Count Result 399 K/mm3 (150-420); Red Blood Count 4.47 M/mm3 (4.20-5.40); Red Cell Distribution Width 15.1 % (11.6-14.4); White Blood Count 12.3 K/mm3 (4.8-10.8)
[2021-05-22 05:49] LABS: Alanine Aminotransferase 37 U/L (14-59); Albumin Level 2.6 g/dL (3.4-5.0); Alkaline Phosphatase 85 U/L (46-116); Anion Gap 7 mmol/L (8-16); Aspartate Amino Transferase 29 U/L (15-37); Bilirubin,Total 0.2 mg/dL (0.00-1.00); Blood Urea Nitrogen 25 mg/dL (7-18); Calcium 9.9 mg/dL (8.5-10.1); Carbon Dioxide 35 mmol/L (21-32); Chloride 97 mmol/L (98-108); Estimated CRCL calculation 64 ml/min; Estimated Glomerular Filt Rate > 60; Glucose 123 mg/dL (70-99); Magnesium 2.2 mg/dL (1.8-2.4); Osmolality Calculated 293 mOsm/kg (285-295); Sodium 139 mmol/L (136-145); Total Protein 7.4 g/dL (6.4-8.2)
[2021-05-22 05:53] LABS: NT Pro B Type Natriuretic Pept 241 pg/mL (0-125)
[2021-05-22] MEDS: LEVOTHYROXINE SODIUM 100 MCG, LEVOTHYROXINE SODIUM 25 MCG 125 MCG PO (06:11)
[2021-05-22 08:56] LABS: HCO3 ABG 29.7 mmol/L (23-29); Oxygen Content ABG 17.3 %vol (16.0-22.0); Oxygen Saturation ABG 91.9 % (95-97); Oxyhemoglobin 91.2 % (94-100); PCO2 ABG 44.1 mmHg (35-45); PO2 ABG 64.6 mmHg (80-90); Total Hemoglobin 13.5 g/dL (12.0-18.0); pH ABG 7.45 (7.35-7.45)
[2021-05-22 08:58] LABS: Device NASAL CANNULA; Modified Allen's Test Pass; Site Drawn LEFT RADIAL
[2021-05-22] MEDS: METOPROLOL SUCCINATE EXT REL 12.5 MG TABCR PO (09:14)
[2021-05-22] MEDS: clonazePAM (*CRX) 0.5 MG TABLET 1 MG PO (09:15)
[2021-05-22] MEDS: GABAPENTIN 300 MG CAPSULE PO (09:15)
[2021-05-22] MEDS: POTASSIUM CHLORIDE 20 MEQ TABLET 40 MEQ PO ×2 (09:15→09:16)
[2021-05-22] MEDS: FLUoxetine HCL 10 MG CAPSULE 40 MG PO (09:16)
[2021-05-22] MEDS: CHOLECALCIFEROL 1,000 UNITS TABLET 2000 UNITS PO (09:16)
[2021-05-22] MEDS: PANTOPRAZOLE 40 MG TABLET PO (09:17)
[2021-05-22] MEDS: MULTIVITAMINS THERAPEUTIC TAB (*BKC) 1 TABLET PO (09:17)
[2021-05-22] MEDS: FUROSEMIDE 40 MG TABLET PO (09:18)
[2021-05-22] MEDS: DIVALPROEX SODIUM ER 500 MG TAB.24H PO (09:18)
[2021-05-22] MEDS: metOLazone 2.5 MG TABLET 5 MG PO (09:18)
[2021-05-22] MEDS: NITROFURANTOIN MONOHYD MACROCR 100 MG CAP PO (09:18)
[2021-05-22] MEDS: allopurinoL 100 MG TABLET PO (09:19)
[2021-05-22] MEDS: UMECLIDINIUM BROMIDE 62.5 MCG ELLIPTA 1 PUFF INHALATION (09:20)
[2021-05-22] MEDS: FLUTICASONE PROPIONATE 0.05% NA SPR 16 GM BTL (*BKC) 2 SPRAY NASAL (09:20)
[2021-05-22] MEDS: PSYLLIUM POWDER PACKET 1 PACKET PO (09:20)
[2021-05-22] MEDS: NICOTINE (*PBKC) 21 MG PATCH 1 PATCH TRANSDERM (09:20)
[2021-05-22] MEDS: ENOXAPARIN 40 MG/0.4 ML SYRINGE SUB-Q (09:22)
--- NOTE | 2021-05-22 09:34 | P.PN_ITS ---
Progress Note: A&P Assessment and Plan (1) Small cell lung cancer: Code(s): C34.90 - Malignant neoplasm of unspecified part of unspecified bronchus or lung Status: Acute Assessment and Plan: * Patient recently diagnosed with lung ca * Follow-up with oncology and radiology * imaging indicate worsening mass * continue supplementary oxygen to keep desats about 90% (2) Metastatic disease: Code(s): C79.9 - Secondary malignant neoplasm of unspecified site Status: Acute Assessment and Plan: * recent lymph node biopsy completed-Successful Ultrasound-guided biopsy of a 4.5 x 2.7 x 2.3 cm right supraclavicular mass suspicious for metastatic lymphadenopathy of lung primary based on CT imaging dated 03/27/2021. * biopsy indicates-SMALL CELL CARCINOMA COMPATIBLE WITH METASTATIC SMALL CELL LUNG CARCINOMA. * follow-up with oncology and radiology * imaging indicate worsening mass and supraclavicle lymph nodes * mri and neck mri pending (3) Tachycardia: Code(s): R00.0 - Tachycardia, unspecified Status: Acute Assessment and Plan: * continue telemetry * heart rate less than 120 * started low-dose beta-cyn for rate control (4) PNA (pneumonia): Code(s): J18.9 - Pneumonia, unspecified organism Status: Acute Assessment and Plan: * imaging indicates pneumonia * continue Rocephin azithromycin day 1 * wbc's 11.2>7.1>11.8>9.2 (5) Brain aneurysm: Code(s): I67.1 - Cerebral aneurysm, nonruptured Status: Acute Assessment and Plan: * head CT indicates a cerebral arterial aneurysm measuring 6 mm * MRI indicate - 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 * will need to follow up with specialist (6) Hypokalemia: Code(s): E87.6 - Hypokalemia Status: Acute Assessment and Plan: * potassium 2.3>3.1>3.0>2.8>2.6 * continue supplements (7) UTI (urinary tract infection): Code(s): N39.0 - Urinary tract infection, site not specified Status: Acute Assessment and Plan: * UA with leukocytes and bacteria * continue Rocephin and azithromycin * ua culture with enetrococcus, sensitivity pending started macrobid (8) Elevated d-dimer: Code(s): R79.89 - Other specified abnormal findings of blood chemistry Status: Acute Assessment and Plan: * D-dimer 1.36 * CTA does not indicate PE (9) COPD (chronic obstructive pulmonary disease): Code(s): J44.9 - Chronic obstructive pulmonary disease, unspecified Status: Acute Assessment and Plan: * continue azithromycin with nebulizers ,Solu-Medrol and supplementary oxygen Subjective Date/time seen: 05/22/21 09:34 Exam Narrative: GENERAL: labored breathing with accessory muscle use, in no apparent distress. HEAD: normocephalic, atraumatic. EYES: PERRL. Sclera clear/white. Vision is grossly intact. EARS: External ears normal, auditory canals clear and without drainage, TMs normal without perforation. Hearing grossly intact. NOSE: External nose normal with no obvious nasal discharge, nares without redness, no rhinorrhea. THROAT: Mucous membranes moist, posterior pharynx clear. NECK: Neck supple,tenderness without to the right neck with edema CARDIOVASCULAR: Regular rate and rhythm without murmurs, gallops, or rubs. RESPIRATORY: Expiratory crackles expiratory wheezing with crackles throughout GASTROINTESTINAL: Abdomen hard, non-tender, nondistended. Bowel sounds are active. No hepato-splenomegaly, or palpable masses. No gua
--- NOTE | 2021-05-22 09:34 | WPDPN ---
Progress Note: A&P Assessment and Plan (1) Small cell lung cancer: Code(s): C34.90 - Malignant neoplasm of unspecified part of unspecified bronchus or lung Status: Acute Assessment and Plan: Patient recently diagnosed with lung ca Follow-up with oncology and radiology imaging indicate worsening mass continue supplementary oxygen to keep desats about 90% (2) Metastatic disease: Code(s): C79.9 - Secondary malignant neoplasm of unspecified site Status: Acute Assessment and Plan: recent lymph node biopsy completed-Successful Ultrasound-guided biopsy of a 4.5 x 2.7 x 2.3 cm right supraclavicular mass suspicious for metastatic lymphadenopathy of lung primary based on CT imaging dated 03/27/2021. biopsy indicates-SMALL CELL CARCINOMA COMPATIBLE WITH METASTATIC SMALL CELL LUNG CARCINOMA. follow-up with oncology and radiology imaging indicate worsening mass and supraclavicle lymph nodes mri and neck mri pending (3) Tachycardia: Code(s): R00.0 - Tachycardia, unspecified Status: Acute Assessment and Plan: continue telemetry heart rate less than 120 started low-dose beta-cyn for rate control (4) PNA (pneumonia): Code(s): J18.9 - Pneumonia, unspecified organism Status: Acute Assessment and Plan: imaging indicates pneumonia continue Rocephin azithromycin day 1 wbc's 11.2>7.1>11.8>9.2 (5) Brain aneurysm: Code(s): I67.1 - Cerebral aneurysm, nonruptured Status: Acute Assessment and Plan: head CT indicates a cerebral arterial aneurysm measuring 6 mm MRI indicate - 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 will need to follow up with specialist (6) Hypokalemia: Code(s): E87.6 - Hypokalemia Status: Acute Assessment and Plan: potassium 2.3>3.1>3.0>2.8>2.6 continue supplements (7) UTI (urinary tract infection): Code(s): N39.0 - Urinary tract infection, site not specified Status: Acute Assessment and Plan: UA with leukocytes and bacteria continue Rocephin and azithromycin ua culture with enetrococcus, sensitivity pending started macrobid (8) Elevated d-dimer: Code(s): R79.89 - Other specified abnormal findings of blood chemistry Status: Acute Assessment and Plan: D-dimer 1.36 CTA does not indicate PE (9) COPD (chronic obstructive pulmonary disease): Code(s): J44.9 - Chronic obstructive pulmonary disease, unspecified Status: Acute Assessment and Plan: continue azithromycin with nebulizers ,Solu-Medrol and supplementary oxygen Subjective Date/time seen: 05/22/21 09:34 Exam Narrative: GENERAL: labored breathing with accessory muscle use, in no apparent distress. HEAD: normocephalic, atraumatic. EYES: PERRL. Sclera clear/white. Vision is grossly intact. EARS: External ears normal, auditory canals clear and without drainage, TMs normal without perforation. Hearing grossly intact. NOSE: External nose normal with no obvious nasal discharge, nares without redness, no rhinorrhea. THROAT: Mucous membranes moist, posterior pharynx clear. NECK: Neck supple,tenderness without to the right neck with edema CARDIOVASCULAR: Regular rate and rhythm without murmurs, gallops, or rubs. RESPIRATORY: Expiratory crackles expiratory wheezing with crackles throughout GASTROINTESTINAL: Abdomen hard, non-tender, nondistended. Bowel sounds are active. No hepato-splenomegaly, or palpable masses. No guarding. SKIN: warm, intact with no suspicious lesions or rash, good texture and turgor. NEURO: awake, alert, with occasional confusion with occasional confusion. There were no obvious focal neurologic abnormalities. EXTREMITIES: Normal range of motion. No edema. No calf tenderness. Negative Homans sign bilaterally. BACK: Nontender without deformity or crepitance. No flank tenderness. Objective Data Vital Signs Vital Si
[2021-05-22] MEDS: CYCLOBENZAPRINE HCL 10 MG TABLET PO (10:24)
--- NOTE | 2021-05-22 10:56 | P.DS_ITS ---
DS: Admitting Diagnosis Discharge Date 05/22/2021 Admitting Diagnosis pna, respiratory failure uti and electrolyte imbalance DS: Discharge Diagnosis Discharge Diagnosis (1) Small cell lung cancer: Code(s): C34.90 - Malignant neoplasm of unspecified part of unspecified bronchus or lung Status: Acute Assessment and Plan: * Patient recently diagnosed with lung ca * Follow-up with oncology and radiology * imaging indicate worsening mass * continue supplementary oxygen to keep desats about 90% * patient with chronic respiratory failure due to lung CA and pneumonia (2) Metastatic disease: Code(s): C79.9 - Secondary malignant neoplasm of unspecified site Status: Acute Assessment and Plan: * recent lymph node biopsy completed-Successful Ultrasound-guided biopsy of a 4.5 x 2.7 x 2.3 cm right supraclavicular mass suspicious for metastatic lymphadenopathy of lung primary based on CT imaging dated 03/27/2021. * biopsy indicates-SMALL CELL CARCINOMA COMPATIBLE WITH METASTATIC SMALL CELL LUNG CARCINOMA. * follow-up with oncology and radiology * imaging indicate worsening mass and supraclavicle lymph nodes * mri and neck mri : 1. 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 2. 0% stenosis of the proximal internal carotid arteries relative to normal distal artery lumen diameters (NASCET criteria). 3. Mass involving the right lung and mediastinum and right supraclavicular lymphadenopathy, consistent with small cell lung cancer. (3) Tachycardia: Code(s): R00.0 - Tachycardia, unspecified Status: Acute Assessment and Plan: * continue telemetry * Possibly secondary possibly nebulizer treatment * heart rate less than 120 * low-dose beta-cyn for rate control (4) PNA (pneumonia): Code(s): J18.9 - Pneumonia, unspecified organism Status: Acute Assessment and Plan: * imaging indicates pneumonia * Given given Rocephin azithromycin will discharg with discharge with cefdinir and azithromycin x7 days * wbc's 11.2>7.1>11.8>9.2>12.3 * Patient will discharged home with a nebulizer and solution. 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 * will need to follow up with specialist (6) Hypokalemia: Code(s): E87.6 - Hypokalemia Status: Acute Assessment and Plan: * potassium 2.3>3.1>3.0>2.8>2.6>3.0 * continue supplements (7) UTI (urinary tract infection): Code(s): N39.0 - Urinary tract infection, site not specified Status: Acute Assessment and Plan: * UA with leukocytes and bacteria * ua culture with enetrococcus, sensitivity continue macrobid (8) Elevated d-dimer: Code(s): R79.89 - Other specified abnormal findings of blood chemistry Status: Acute Assessment and Plan: * D-dimer 1.36 * CTA does not indicate PE (9) COPD (chronic obstructive pulmonary disease): Code(s): J44.9 - Chronic obstructive pulmonary disease, unspecified Status: Acute Assessment and Plan: * Continue supplementary oxygen along with prednisone and antibiotic treatment DS: Summary Hospital Course Hospital Course: this is a 55-year-old female that presents to our emergency with complaints of shortness of breath and pain to her right shoulder, back and neck. Patient recently diagnosed with lung CA a
--- NOTE | 2021-05-22 10:56 | PM.DS ---
DS: Admitting Diagnosis Discharge Date 05/22/2021 Admitting Diagnosis pna, respiratory failure uti and electrolyte imbalance DS: Discharge Diagnosis Discharge Diagnosis (1) Small cell lung cancer: Code(s): C34.90 - Malignant neoplasm of unspecified part of unspecified bronchus or lung Status: Acute Assessment and Plan: Patient recently diagnosed with lung ca Follow-up with oncology and radiology imaging indicate worsening mass continue supplementary oxygen to keep desats about 90% patient with chronic respiratory failure due to lung CA and pneumonia (2) Metastatic disease: Code(s): C79.9 - Secondary malignant neoplasm of unspecified site Status: Acute Assessment and Plan: recent lymph node biopsy completed-Successful Ultrasound-guided biopsy of a 4.5 x 2.7 x 2.3 cm right supraclavicular mass suspicious for metastatic lymphadenopathy of lung primary based on CT imaging dated 03/27/2021. biopsy indicates-SMALL CELL CARCINOMA COMPATIBLE WITH METASTATIC SMALL CELL LUNG CARCINOMA. follow-up with oncology and radiology imaging indicate worsening mass and supraclavicle lymph nodes mri and neck mri : 1. 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 2. 0% stenosis of the proximal internal carotid arteries relative to normal distal artery lumen diameters (NASCET criteria). 3. Mass involving the right lung and mediastinum and right supraclavicular lymphadenopathy, consistent with small cell lung cancer. (3) Tachycardia: Code(s): R00.0 - Tachycardia, unspecified Status: Acute Assessment and Plan: continue telemetry Possibly secondary possibly nebulizer treatment heart rate less than 120 low-dose beta-cyn for rate control (4) PNA (pneumonia): Code(s): J18.9 - Pneumonia, unspecified organism Status: Acute Assessment and Plan: imaging indicates pneumonia Given given Rocephin azithromycin will discharg with discharge with cefdinir and azithromycin x7 days wbc's 11.2>7.1>11.8>9.2>12.3 Patient will discharged home with a nebulizer and solution. 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 will need to follow up with specialist (6) Hypokalemia: Code(s): E87.6 - Hypokalemia Status: Acute Assessment and Plan: potassium 2.3>3.1>3.0>2.8>2.6>3.0 continue supplements (7) UTI (urinary tract infection): Code(s): N39.0 - Urinary tract infection, site not specified Status: Acute Assessment and Plan: UA with leukocytes and bacteria ua culture with enetrococcus, sensitivity continue macrobid (8) Elevated d-dimer: Code(s): R79.89 - Other specified abnormal findings of blood chemistry Status: Acute Assessment and Plan: D-dimer 1.36 CTA does not indicate PE (9) COPD (chronic obstructive pulmonary disease): Code(s): J44.9 - Chronic obstructive pulmonary disease, unspecified Status: Acute Assessment and Plan: Continue supplementary oxygen along with prednisone and antibiotic treatment DS: Summary Hospital Course Hospital Course: this is a 55-year-old female that presents to our emergency with complaints of shortness of breath and pain to her right shoulder, back and neck. Patient recently diagnosed with lung CA and history of hepatitis C. Patient notes that she had been short of breath for a couple of days even with the use of her oxygen, she uses 1 L nasal cannula p.r.n. repeat home 2 evaluate indicates the patient will need to use 3 L nasal cannula continuously . Patient being admitted for pain management, respiratory failure, pneumonia , COPD,and UTI. Patient condition has improved she still has diminished breath sound, mo
--- NOTE | 2021-05-22 11:01 | HOMEO2EVAL ---
Evaluation was performed at [facility] Home Oxygen Evaluation RC: Home Oxygen (O2) Evaluation Start: 05/22/21 10:30 Freq: ONCE Status: Active Protocol: RPE Activity Type Activity Date Activity User E-Sign Co-Sign Detail Recorded Client Recorded Date Recorded By Document 05/22/21 10:30 SJB [id number] 05/22/21 11:01 SJB Document 05/22/21 10:32 SJB [id number] 05/22/21 11:01 SJB Document 05/22/21 10:34 SJB [id number] 05/22/21 11:01 SJB Document 05/22/21 10:36 SJB [id number] 05/22/21 11:01 SJB Document 05/22/21 10:40 SJB [id number] 05/22/21 11:01 SJB 05/22/21 05/22/21 05/22/21 10:30 10:32 10:34 Home O2 Evaluation Test Phase Resting Exercise Exercise Oxygen Delivery Room Air Room Air Nasal Cannula Oxygen Flow Rate (L/min) 1 Pulse Oximetry (90-100 %) 89 L 80 L 88 L Pulse Rate (60-100 beats/min) 101 H 104 H 113 H Activity Tolerance Fair Fair Rating of Perceived Dyspnea (PD) +2 Mild, Some +2 Mild, Some Difficulty, Difficulty, Noticeable to Noticeable to the Observer the Observer Rate of Perceived Exertion (PE) 12 13 Somewhat Hard Ambulation Distance (feet) 50 50 Ambulation Distance (meters) 15.23 15.23 Home Oxygen Evaluation Comments Will start walk Will start on 1 Will increase on room air lpm o2. Pt to 2 lpm. now. needed to sit in a chair x 2 minutes to recover. Pt had c/o dizziness prior to sitting. Treatment Charges O2 Evaluation - Inpatient 05/22/21 05/22/21 10:36 10:40 Home O2 Evaluation Test Phase Exercise Exercise Oxygen Delivery Nasal Cannula Nasal Cannula Oxygen Flow Rate (L/min) 2 3 Pulse Oximetry (90-100 %) 84 L 95 Pulse Rate (60-100 beats/min) 111 H 125 H Activity Tolerance Fair Fair Rating of Perceived Dyspnea (PD) +3 Moderate +3 Moderate Difficulty, But Difficulty, But Can Continue Can Continue Rate of Perceived Exertion (PE) 13 Somewhat 14 Hard Ambulation Distance (feet) 25 50 Ambulation Distance (meters) 7.61 15.23 Home Oxygen Evaluation Comments Will increase Finished walk 02 to 3 lpm. on 3 lpm with Sp02 at 95%, HR increased to 125. Audible wheezes were heard throughout walk . PLB encouraged. Treatment Charges
--- NOTE | 2021-05-22 13:30 | PC.NURSE ---
Discharge instructions reviewed with patient, instructions sent with patient to custodial care.Patient taken off floor per wheelchair. Assisted into private vehicle. Portable oxygen connected.
--- NOTE | 2021-05-23 11:43 | PC.NURSE ---
[facility] states they received and understood the instructions and that patient is doing well.
== END 2021-05-22 13:30 | disposition home or self-care (01) | DRG 194 ==
LOC: CHSED 10:27 → CHS2ND 10:33
PROVIDERS: Nurse Practitioner; Admitting Provider Emergency Medicine; Emergency Provider Emergency Medicine; PCP Physician Assistant; Visit Provider Emergency Medicine
DX: J18.8 Other pneumonia, unspecified organism (principal); C34.01 Malignant neoplasm of right main bronchus; Z20.822 Contact with and (suspected) exposure to COVID-19; C77.0 Secondary and unspecified malignant neoplasm of lymph nodes of head, face and neck; J96.10 Chronic respiratory failure, unspecified whether with hypoxia or hypercapnia; N39.0 Urinary tract infection, site not specified; E87.6 Hypokalemia; G89.3 Neoplasm related pain (acute) (chronic); I67.1 Cerebral aneurysm, nonruptured; F17.210 Nicotine dependence, cigarettes, uncomplicated; R79.89 Other specified abnormal findings of blood chemistry; Z86.19 Personal history of other infectious and parasitic diseases; Z99.81 Dependence on supplemental oxygen; J44.1 Chronic obstructive pulmonary disease with (acute) exacerbation
CPT/HCPCS: 36415; 36600; 70460; 70549; 70553; 71045; 71275; 80053; 81001; 82805; 83605; 83735; 83880; 84132; 84484; 85025; 85027; 85380; 85610; 85730; 87040; 87077; 87086; 87088; 87186; 87804; 92610; 93005; 94618; 94640; 96361; 96365; 96366; 96372; 96375; 99285; A9270; A9577; C9803; J0456; J0696; J1170; J1650; J1885; J1940; J2270; J2920; J2930; J3480; J7030; Q9967; U0003; U0005

== ENCOUNTER 2021-06-07 11:15 | Observation (INO) | payer OTHER, SELFPAY ==
[2021-06-07] VITALS (52 sets, daily range): BP systolic 94–136; BP diastolic 16–83; PULSE 121–136; RESP 14–35; TEMP 36.1–36.7; O2SAT 88–100; BMI 28.5
--- NOTE | ~2021-06-07 | US_ITS ---
EXAMINATION: US venous doppler LE EXAM DATE: 06/08/2021 16:23 INDICATION: Bilateral leg edema. TECHNIQUE: Multiple grayscale, color flow and Doppler images of the lower extremity deep venous syste ms bilaterally were obtained and reviewed. There is no prior study for comparison. FINDINGS: Right side: The right common femoral, femoral and profunda veins demonstrate normal color flow, respi ratory variation, augmentation and compressibility. Compressibility, color flow confirmed within the right popliteal, posterior tibial, peroneal, and greater saphenous veins. Left side: The left common femoral, femoral and profunda veins demonstrate normal color flow, respira tory variation, augmentation and compressibility. Compressibility, color flow confirmed within the l eft popliteal, posterior tibial, peroneal, and greater saphenous veins. IMPRESSION: 1. No lower extremity deep venous thrombosis bilaterally. Reviewed, dictated and finalized at location . D DIRECTOR
--- NOTE | ~2021-06-07 | XR_ITS ---
EXAMINATION: XR chest 1V INDICATION: Midline access catheter placement TECHNIQUE: Single AP view of the left chest and upper left arm are obtained. COMPARISON: 05/20/2021 FINDINGS: A central venous catheter ends with its tip in the left axilla. There is a partially imaged large right lung mass. The visualized portions of the left hemithorax are unremarkable. The heart si ze is normal. IMPRESSION: 1. Left upper extremity catheter ending with its tip in the axilla. 2. Right lung mass, consistent with known malignancy. Reviewed, dictated and finalized at location A. ER WORKER
--- NOTE | ~2021-06-07 | CT_ITS ---
EXAMINATION: CTA chest PE protocol DATE: 06/07/2021 17:32 INDICATION: Cancer presenting with tachycardia TECHNIQUE: Computed tomography (CT) pulmonary angiogram of the chest was performed with 100 mL Omnipa que-350 intravenous contrast. Additional 3D reconstructions utilizing coronal maximum intensity proje ction (MIP) were performed. Automated exposure control and iterative reconstruction technique were em ployed. The dose-length product was 237.01 mGy-cm. COMPARISON: 05/18/2021 FINDINGS: Excellent contrast opacification of the pulmonary arteries. There is mild streak artifact from dense contrast in the superior vena cava and right atrium. Moderate scattered respiratory motion artifact w hich decreases sensitivity in the segmental and subsegmental pulmonary arteries. There is a large rig ht upper lobe mass invading the right hilum and mediastinum consistent with malignancy. The mass ken ures 12.5 x 10.3 x 12.1 cm and significantly narrows the bronchi to the right lung most prominently o f the right upper lobe bronchus and bronchus intermedius. There is narrowing of the central right pul monary arteries and occlusion of the pulmonary artery to the right upper lobe which appears due to ex trinsic compression. No definite pulmonary embolism. There is groundglass opacity and patchy consolid ation and portions of the right upper lobe peripheral to the mass suspicious for postobstructive pneu monia and/or pulmonary edema. Mild dependent atelectasis in the right lower lobe. Minimal atelectasis at the lingula. No pleural effusion or pneumothorax. Heart size is normal. Decrease in size of a now small pericardial effusion. Thoracic aorta is normal in caliber. There is marked narrowing of the superior vena cava and azygos vein. There is collateral drainage of the left brachiocephalic vein by both the hemiazygos vein and left paraspinal collaterals . There is additional incompletely visualized bulky likely metastatic right supraclavicular lymphaden opathy. Partially visualized at least 2.5 x 1.6 cm masslike density at the left breast. Visualized up per abdomen is unremarkable. Mild thoracic spondylosis. No suspicious lytic or blastic bone lesions. Healing subacute to chronic anterior left fifth and sixth rib fractures. IMPRESSION: 1. No pulmonary embolism. Sensitivity in some of the segmental and subsegmental pulmonary arteries is limited by moderate amount of motion artifact. 2. Occlusion of the right upper lobar pulmonary artery resulting from extrinsic compression of an enl arging, large right upper lobe mass which invades the right hilum and mediastinum consistent with mayelin jes adenocarcinoma with metastatic hilar, mediastinal and right supraclavicular lymphadenopathy. 3. More peripheral airspace disease in the right upper lobe which could represent secondary obstructi ve pneumonia and/or pulmonary edema. 4. 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 5. Decreasing small pericardial effusion. 6. Indeterminate 2.5 x 1.6 cm masslike density at the left breast and could not exclude additional pr imary breast cancer. Correlate with mammography. Reviewed, dictated and finalized at location A. [employer] IMPRESSION: 1. No pulmonary embolism. Sensitivity in some of the segmental and subsegmental pulmonary arteries is limited by moderate amount of motion artifact. 2. Occlusion of the right upper lobar pulmonary artery resulting from extrinsic compression of an enlarging, large right upper lobe mass which invades the rig ht hilum and mediastinum consistent with primary adenocarcinoma with metastatic hilar, mediastinal and right supraclavicular lymphadenopathy. 3. More peripheral airspace disease in the right upper
--- NOTE | ~2021-06-07 | US_ITS ---
EXAMINATION: US venous doppler [facility] DATE: 06/07/2021 14:34 INDICATION: Bilateral upper extremity swelling TECHNIQUE: Grayscale ultrasound images without and with compression and Doppler ultrasound images of the bilateral upper extremity veins were obtained. COMPARISON: None. FINDINGS: The right internal jugular vein, subclavian vein, axillary vein, brachial veins, basilic vein, cephal ic vein, radial vein, and ulnar vein are patent. The left internal jugular vein, subclavian vein, axillary vein, brachial veins, basilic vein, cephali c vein, radial vein, and ulnar vein are patent. IMPRESSION: 1. No evidence of deep venous thrombosis. Reviewed, dictated and finalized at location A. PEDIATRIC
--- NOTE | 2021-06-07 12:12 | ED.GENADULT ---
HPI - General Adult General Chief complaint: Unspecified Stated complaint: out of pain medication Time Seen by Provider: 06/07/21 12:00 Source: patient and RN notes reviewed Limitations: no limitations History of Present Illness HPI narrative: 55-year-old female with recent diagnosis of cancer presents to the emergency department complaining of uncontrolled pain and requesting pain medication. Patient states that she was supposed to have a port placed but missed it due to her having the times confused. Patient states she was supposed to get pain medications from Dr. Carson and that they called the medications and but she states they are not available yet. Patient presents complaining of generalized body pain and some shortness of breath. Call patient was in the risk department Dr. Akhtar called and stated that the patient had been scheduled for a port placement. The new plan was that he was hoping we could get ultrasounds in the emergency department and that if the patient was negative for upper extremity DVT then the patient could have midline access placed by Paola the vascular access nurse Patient is always on 4 L of oxygen. Related Data Home Medications Medication Instructions Recorded Confirmed Incruse Ellipta 1 inh INHALATION DAILY 03/26/21 06/06/21 Vitamin Plus Low Iron 1 tablet PO DAILY 03/26/21 06/06/21 Stomach Relief See Rx Instructions .ROUTE 03/26/21 06/06/21 .COMPLEX PRN acetaminophen 1,000 mg PO TID 03/26/21 06/06/21 artificial tears solution 1 drp OPHTHALMIC (EYE) Q6-8H PRN 03/26/21 06/06/21 cholecalciferol (vitamin D3) 50 mcg PO DAILY 03/26/21 06/06/21 [Vitamin D3] cyclobenzaprine 10 mg PO TID PRN 03/26/21 06/06/21 diphenhydramine HCl [Allergy 50 mg PO HS PRN 03/26/21 06/06/21 (diphenhydramine)] fluoxetine 40 mg PO DAILY 03/26/21 06/06/21 fluticasone propionate 2 spray INTRANASAL DAILY 03/26/21 06/06/21 gabapentin 300 mg PO TID 03/26/21 06/06/21 ibuprofen 800 mg PO TID PRN 03/26/21 06/06/21 levothyroxine 125 mcg PO DAILY 03/26/21 06/06/21 loperamide [Anti-Diarrheal 2 mg PO Q4H PRN 03/26/21 06/06/21 (loperamide)] magnesium hydroxide [Milk of 15 ml PO DAILY PRN 03/26/21 06/06/21 Magnesia] melatonin 10 mg PO HS PRN 03/26/21 06/06/21 metolazone 5 mg PO DAILY 03/26/21 06/06/21 nicotine 1 patch TRANSDERMAL DAILY 03/26/21 06/06/21 omeprazole 20 mg PO DAILY 03/26/21 06/06/21 potassium chloride 40 meq PO BID 03/26/21 06/06/21 sennosides [senna] 8.6 mg PO DAILY PRN 03/26/21 06/06/21 alum-mag hydroxide-simeth 15 ml PO TID PRN 05/18/21 06/06/21 [Gabrielle-Lanta] epinephrine 0.15 mg IM Q30M PRN 05/18/21 06/06/21 psyllium 1 packet PO DAILY PRN 05/18/21 06/06/21 tramadol 50 mg PO TID 05/18/21 06/06/21 ondansetron 8 mg PO Q8H PRN 06/06/21 06/06/21 simethicone 80 mg PO Q6H PRN 06/06/21 06/06/21 Allergies Allergy/AdvReac Type Severity Reaction Status Date / Time sulfamethoxazole AdvReac Severe Swelling Verified 06/07/21 11:37 [From Bactrim] of Lip/Tongue/Throat trimethoprim [From Bactrim] AdvReac Severe Swelling Verified 06/07/21 11:37 of Lip/Tongue/Throat Review of Systems Review of Systems: CONSTITUTIONAL: Denies fever, chills, or sweats. Gen body pain EYES: Denies visual changes, redness, or discharge. ENT: Denies rhinorrhea, congestion, sore throat, or otalgia. CARDIOVASCULAR: Denies chest pain, palpitations, or edema. RESPIRATORY: cough and SOB GASTROINTESTINAL: Denies abdominal pain, nausea, vomiting, or diarrhea. GENITOURINARY: Denies dysuria or hematuria. SKIN: Denies rash or itching. MUSCULOSKELETAL: Denies back pain, joint pain, or myalgia. NEUROLOGIC: Denies headache, numbness, or weakness. PSYCHIATRIC: Denies anxiety or depression. PMFSH Past Medical History Medical History Hepatitis C Small cell lung cancer Family History Family History Other Family histo
[2021-06-07] MEDS: ALBUTEROL SULFATE NEB 2.5 MG/0.5 ML INH 5 MG INHALATION ×3 (12:21→20:56)
[2021-06-07] MEDS: HYDROcodone/acetaminophen (*CRX) 5-325 MG TABLET 1 TAB PO ×2 (12:36→13:26)
--- NOTE | 2021-06-07 14:30 | PC.NURSE ---
pt states pain has improved. waiting results of ultrasound.
[2021-06-07] MEDS: LIDOCAINE HCL 1% LOCAL INJ 2 ML AMPUL 5 ML INFILTRATE (15:30)
[2021-06-07 16:28] LABS: Basophils Percent Auto 0.3 % (0.2-1.2); Eosinophils Absolute Auto 0.1 K/mm3 (0-0.3); Eosinophils Percent Auto 0.7 % (0-4.4); Hemoglobin 12.4 g/dL (12.0-15.0); Immature Granulocyte Absolute 0.06 K/mm3 (0.00-0.031); Immature Granulocyte Percent A 0.5 % (0-0.5); Lymphocytes Absolute Auto 0.99 K/mm3 (0.9-3.2); Lymphocytes Percent Auto 8.7 % (18.3-44.2); Mean Corpuscular Hemoglobin 28.7 pg (26-34); Mean Corpuscular Volume 92.6 fl (80-100); Mean Platelet Volume 10.6 fl (7.4-10.4); Monocytes Absolute Auto 1.2 K/mm3 (0.1-0.6); Monocytes Percent Auto 10.7 % (2.6-8.5); Neutrophils Percent Auto 79.1 % (45.5-73.1); Platelet Count Result 238 k/mm3 (150-375); Red Blood Count 4.32 M/mm3 (4.2-5.4); Red Cell Distribution Width 15.7 % (11.5-14.5); White Blood Count 11.3 K/mm3 (4.5-10.0)
[2021-06-07 16:40] LABS: Alanine Aminotransferase 19 U/L (4-35); Albumin Level 3.7 g/dL (3.5-5.1); Alkaline Phosphatase 118 U/L (38-126); Anion Gap 5 mmol/L (8-16); Aspartate Amino Transferase 41 U/L (14-36); Bilirubin,Total 0.5 mg/dL (0.2-1.3); Blood Urea Nitrogen 37 mg/dL (7-17); Calcium 10.3 mg/dL (8.4-10.2); Carbon Dioxide 30 mmol/L (22-30); Chloride 95 mmol/L (98-107); Estimated CRCL calculation 49 ml/min; Estimated Glomerular Filt Rate > 60; Glucose 105 mg/dL (65-110); Potassium 4.4 mmol/L (3.4-5.0); Sodium 130 mmol/L (137-145)
[2021-06-07 16:44] LABS: Partial Thromboplastin Time 33.3 SECONDS (22.3-36.8)
[2021-06-07 16:50] LABS: INR 1.2; Prothrombin Time 15.1 Seconds (11.1-14.7)
[2021-06-07 18:16] LABS: SARS-CoV-2 RNA PCR Negative
--- NOTE | 2021-06-07 18:30 | PC.NURSE ---
pt c/o not being able to breathe. o2 sats in the upper 90's on her home o2 3l nc. respirations labored at 32. edp aware and respiratory upd ordered.
[2021-06-07] MEDS: HYDROmorphone HCL INJ (*CRX) 1 MG/ML SYR 0.5 MG IV PUSH ×2 (19:46→23:22)
[2021-06-07] MEDS: SODIUM CHLORIDE 0.9% IV 1,000 ML 150 ML IV CONT (20:12)
--- NOTE | 2021-06-07 22:53 | ADMGEN ---
This patient, Gogo Martell, was admitted to IMU Room 210-01. Patient/family oriented to hospital policies and general routines including ID bracelet, bed and alarms, visiting hours, pain management, procedures, bathroom and other care routines, personal items, smoking policy, room service/diet, and visiting hours. Information on how to activate the Rapid Response Team has been discussed. Patient/Family are encouraged to report perceived risks to care and to ask questions if they do not understand what they are told or what they should do.
--- NOTE | 2021-06-07 23:36 | PM.IMHP ---
H&P: HPI History of Present Illness Date/Time: 06/07/21 23:36 this is a 55-year-old homeless female who resides in a homeless correction. She has a history of heavy smoking and has a history of small cell lung cancer. The patient came in today due to uncontrolled pain and she was requesting pain medication. The patient was supposed to have a of port placed but missed it due to misunderstanding surrounding her surgical date. The patient sees Dr. Carson and Dr. Alvarez for treatment. The patient appears to have SVC syndrome with edema to the right side of her neck and her right arm. The patient is unkempt and is continuously on oxygen at 4 L per nasal cannula. The patient had a midline placed to the left upper arm per drawn the vascular access nurse in the emergency room. The patient was also tachycardic. Dr. Akhtar was notified about the case and recommended that the patient be admitted overnight. Chest x-ray was read as1. Left upper extremity catheter ending with its tip in the axilla. 2. Right lung mass, consistent with known malignancy. Chest CTA was read as the following IMPRESSION: 1. No pulmonary embolism. Sensitivity in some of the segmental and subsegmental pulmonary arteries is limited by moderate amount of motion artifact. 2. Occlusion of the right upper lobar pulmonary artery resulting from extrinsic compression of an enlarging, large right upper lobe mass which invades the right hilum and mediastinum consistent with primary adenocarcinoma with metastatic hilar, mediastinal and right supraclavicular lymphadenopathy. 3. More peripheral airspace disease in the right upper lobe which could represent secondary obstructive pneumonia and/or pulmonary edema. 4. 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 5. Decreasing small pericardial effusion. 6. Indeterminate 2.5 x 1.6 cm masslike density at the left breast and could not exclude additional primary breast cancer. Correlate with mammography. The patient was given Vicodin, IV fluids, and a nebulizer treatment in the emergency room. The patient is being admitted to observation status on the date of service of 06/07/2021. Chief Complaint: Pain from metastatic disease. Review of Systems Constitutional: Constitutional: Reports as per HPI Comments: The patient is a very poor historian PMFSH Past Medical History Medical History (Updated 06/08/21 @ 00:06 by Doreen Kumar NP) Amblyopia Left eye Anxiety Brain aneurysm CHF (congestive heart failure), NYHA class I COPD (chronic obstructive pulmonary disease) Depression Hepatitis C Hypothyroidism Metastatic disease Small cell lung cancer Tachycardia Tobacco abuse Surgical History Surgical History Cataract extraction status Family History Family History (Updated 06/07/21 @ 23:51 by Doreen Kumar NP) Mother Heart disease Congestive heart failure Father Healthy adult male Other Family history non-contributory Social History Social History (Updated 06/07/21 @ 23:52 by Doreen Kumar NP) Social History: The patient tells me that she lives in a correction. She has no children she is . The patient states that she is down to 3 or 4 cigarettes a day. She denies using any marijuana or illicit drugs. She denies any alcohol. The patient does not have a durable power consumer attorney for healthcare. Code status full code Smoking packs per day: 1 Smoking cigarettes per day: 20.0 Years smoked: 40 Smoking pack-years: 40.00 Smoking status: Current every day smoker Tobacco type: cigarettes Additional smoking assessment comments: down to 1/2 pack Alcohol intake: never Substance use: never Substance use type: does not use Additional living arrangements comments: [facility] Spiritual care concerns: No Meds Home Medications and A
[2021-06-08] VITALS (19 sets, daily range): BP systolic 99–126; BP diastolic 36–88; PULSE 115–126; RESP 16–24; TEMP 36.1–36.6; O2SAT 95–100
[2021-06-08] MEDS: ALBUTEROL SULFATE NEB 2.5 MG/0.5 ML INH 5 MG INHALATION ×2 (02:58→08:19)
[2021-06-08] MEDS: HYDROmorphone HCL INJ (*CRX) 1 MG/ML SYR 0.5 MG IV PUSH ×3 (03:50→17:49)
[2021-06-08] MEDS: SALINE LOCK FLUSH 10 ML IV PUSH ×3 (04:20→22:51)
[2021-06-08 05:04] LABS: Basophils Percent Auto 0.3 % (0.2-1.2); Eosinophils Absolute Auto 0.1 K/mm3 (0-0.3); Eosinophils Percent Auto 0.9 % (0-4.4); Hematocrit 38.7 % (37.0-47.0); Immature Granulocyte Absolute 0.03 K/mm3 (0.00-0.031); Immature Granulocyte Percent A 0.3 % (0-0.5); Lymphocytes Absolute Auto 0.92 K/mm3 (0.9-3.2); Lymphocytes Percent Auto 9.9 % (18.3-44.2); Mean Corpuscular Volume 90.4 fl (80-100); Mean Platelet Volume 10.3 fl (7.4-10.4); Monocytes Absolute Auto 0.9 K/mm3 (0.1-0.6); Monocytes Percent Auto 9.9 % (2.6-8.5); Neutrophils Absolute Auto 7.3 K/mm3 (1.3-6.7); Neutrophils Percent Auto 78.7 % (45.5-73.1); Platelet Count Result 239 k/mm3 (150-375); Red Blood Count 4.28 M/mm3 (4.2-5.4); Red Cell Distribution Width 15.7 % (11.5-14.5); White Blood Count 9.3 K/mm3 (4.5-10.0)
[2021-06-08 05:21] LABS: Alanine Aminotransferase 18 U/L (4-35); Albumin Level 3.3 g/dL (3.5-5.1); Alkaline Phosphatase 121 U/L (38-126); Anion Gap 4 mmol/L (8-16); Aspartate Amino Transferase 41 U/L (14-36); Bilirubin,Total 0.5 mg/dL (0.2-1.3); Blood Urea Nitrogen 31 mg/dL (7-17); Calcium 10.1 mg/dL (8.4-10.2); Carbon Dioxide 28 mmol/L (22-30); Chloride 96 mmol/L (98-107); Estimated CRCL calculation 81 ml/min; Estimated Glomerular Filt Rate > 60; Glucose 104 mg/dL (65-110); Lipase 265 U/L (23-300); Magnesium 1.8 mg/dL (1.6-2.3); Phosphorus 3.6 mg/dL (2.5-4.5); Potassium 3.9 mmol/L (3.4-5.0); Sodium 128 mmol/L (137-145)
[2021-06-08 08:18] LABS: Thyroid Stimulating Hormone Reflex 0.448 uIU/mL (0.465-4.68)
[2021-06-08] MEDS: FAMOTIDINE 20 MG/2 ML VIAL IV PUSH ×2 (08:29→20:55)
[2021-06-08] MEDS: ENOXAPARIN 40 MG/0.4 ML SYRINGE SUB-Q (08:29)
[2021-06-08] MEDS: traMADol HCL (*CRX) 25 MG TABLET PO (08:51)
[2021-06-08 09:38] LABS: Free T4 Free Thyroxine Reflex 1.73 ng/dL (0.78-2.19)
[2021-06-08] MEDS: TAMSULOSIN HCL 0.4 MG CAPSULE PO (10:57)
[2021-06-08] MEDS: DIVALPROEX SODIUM ER 500 MG TAB.24H PO ×2 (10:57→20:55)
[2021-06-08] MEDS: allopurinoL 100 MG TABLET PO ×2 (10:57→17:49)
[2021-06-08] MEDS: GABAPENTIN 300 MG CAPSULE PO ×2 (10:58→17:49)
[2021-06-08] MEDS: NICOTINE (*PBKC) 21 MG PATCH 1 PATCH TRANSDERM (10:58)
[2021-06-08] MEDS: CHOLECALCIFEROL 1,000 UNITS TABLET 2000 UNITS PO (10:58)
[2021-06-08] MEDS: POTASSIUM CHLORIDE 20 MEQ TABLET.ER 40 MEQ PO ×2 (10:58→17:49)
[2021-06-08] MEDS: FLUoxetine HCL 20 MG CAPSULE 40 MG PO (10:59)
[2021-06-08] MEDS: LEVOTHYROXINE SODIUM 125 MCG TABLET PO (10:59)
[2021-06-08] MEDS: metOLazone 5 MG TABLET PO (10:59)
[2021-06-08] MEDS: FUROSEMIDE 40 MG TABLET PO (10:59)
[2021-06-08] MEDS: FLUTICASONE PROPIONATE 0.05% NA SPR 16 GM BTL (*BKC) 2 SPRAY NASAL (11:00)
[2021-06-08] MEDS: ACETAMINOPHEN 500 MG TABLET 1000 MG PO (11:04)
--- NOTE | 2021-06-08 13:19 | PM.IMPN ---
Progress Note: A&P Assessment and Plan (1) Small cell lung cancer: Code(s): C34.90 - Malignant neoplasm of unspecified part of unspecified bronchus or lung Status: Chronic Assessment and Plan: The patient missed her appointment for her Port-A-Cath. However the patient did get a midline here. 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 Also appears to have a breast mass. Dr. Carson has been consulted. The patient also sees Dr. Alvarez. The patient was complaining of having severe pain mostly in the right upper chest. She is somnolent so will stop the fentanyl patch. Continued with her Ultram for breakthrough pain. Add [place] for severe pain. (2) Hypoxia: Code(s): R09.02 - Hypoxemia Status: Acute Assessment and Plan: COVID negative. CTA chest showing occlusion of the right upper lobar pulmonary artery resulting from extrinsic compression of an enlarging, large right upper lobe mass which invades the right hilum and mediastinum consistent with primary adenocarcinoma with metastatic hilar, mediastinal and right supraclavicular lymphadenopathy. She also has more peripheral airspace disease in the right upper lobe which could represent secondary obstructive pneumonia and/or pulmonary edema. She is continuously on 4 L nasal cannula. Hypoxia related to COPD and lung cancer. Wean oxygen as tolerated. 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 Continue to monitor. (4) COPD (chronic obstructive pulmonary disease): Code(s): J44.9 - Chronic obstructive pulmonary disease, unspecified Status: Chronic Assessment and Plan: Stable. Continue Incruse Ellipta. Will change albuterol to Xopenex given her tachycardia. (5) CHF (congestive heart failure), NYHA class I: Code(s): I50.9 - Heart failure, unspecified Status: Chronic Assessment and Plan: Lung imaging as mentioned above. Continue with patient's diuretics from home. (6) Tobacco abuse: Code(s): Z72.0 - Tobacco use Status: Chronic Assessment and Plan: The patient still smokes 1-2 cigarettes a day. (7) Depression: Code(s): F32.A - Depression, unspecified Status: Chronic Assessment and Plan: Mood stable. Continue with home medication with clonazepam, divalproex, and fluoxetine. (8) Tachycardia: Code(s): R00.0 - Tachycardia, unspecified Status: Acute Assessment and Plan: CTA negative for PE. TSH 0.45 but free T4 is normal. Could possibly be related to her anxiety and pain. Adjust pain medications. Change to Xopenex. Continue on telemetry (9) Hypothyroidism: Code(s): E03.9 - Hypothyroidism, unspecified Status: Chronic Assessment and Plan: TSH is 0.45. Continue with her home dose of levothyroxine. Repeat when patient is well. Subjective Date/time seen: 06/08/21 13:19 Interval history: 55yo female with small cell lung cancer here for uncontrolled pain. Patient complains of pain in the right upper chest. She has been having a cough. She states she feels masses in the right upper chest. She is unaware that she has a breast mass. Exam Narrative: AF 97.1 110/62 122 18 100% 4L Gen - NARD HEENT/neck - facial and neck edema with fullness in the right supraclavicular area Chest -inspiratory and expiratory rhonchi posteriorly. Normal respiratory rate CV -tachycardic but regular. Telemetry showing sinus tachycardia Abd - soft, NT, +BS Ext - R>L upper extremity edema. no pedal edema Psych - somnolent Skin - Warm and dry Objective Data Vi
[2021-06-08] MEDS: LEVALBUTEROL NEB 1.25 MG/3 ML 0.63 MG INHALATION ×2 (14:19→20:20)
[2021-06-08] MEDS: clonazePAM (*CRX) 0.5 MG TABLET PO (20:55)
[2021-06-09] VITALS (13 sets, daily range): BP systolic 90–127; BP diastolic 22–57; PULSE 100–130; RESP 16–22; TEMP 36.1–36.7; O2SAT 91–99
[2021-06-09] MEDS: LEVALBUTEROL NEB 1.25 MG/3 ML 0.63 MG INHALATION ×4 (03:49→19:44)
[2021-06-09 05:25] LABS: Anion Gap 7 mmol/L (8-16); Blood Urea Nitrogen 33 mg/dL (7-17); Calcium 9.9 mg/dL (8.4-10.2); Carbon Dioxide 25 mmol/L (22-30); Chloride 96 mmol/L (98-107); Estimated CRCL calculation 95 ml/min; Estimated Glomerular Filt Rate > 60; Glucose 97 mg/dL (65-110); Sodium 128 mmol/L (137-145)
[2021-06-09] MEDS: HYDROcodone/acetaminophen (*CRX) 7.5-325 MG TABLET 1 TAB PO (05:54)
[2021-06-09] MEDS: LEVOTHYROXINE SODIUM 125 MCG TABLET PO (05:55)
[2021-06-09] MEDS: SALINE LOCK FLUSH 10 ML IV PUSH (05:56)
[2021-06-09] MEDS: LORATADINE 10 MG TABLET PO (08:46)
[2021-06-09] MEDS: HYDROmorphone HCL INJ (*CRX) 1 MG/ML SYR 0.5 MG IV PUSH (08:46)
[2021-06-09] MEDS: DIVALPROEX SODIUM ER 500 MG TAB.24H PO (08:47)
[2021-06-09] MEDS: SIMETHICONE 80 MG TAB.CHEW PO (08:47)
[2021-06-09] MEDS: CHOLECALCIFEROL 1,000 UNITS TABLET 2000 UNITS PO (08:48)
[2021-06-09] MEDS: ARTIFICIAL TEARS OPHTH SOLN 15 ML BOTTLE 1 DROP EACH EYE (08:49)
[2021-06-09] MEDS: GABAPENTIN 300 MG CAPSULE PO ×2 (08:51→16:51)
[2021-06-09] MEDS: ENOXAPARIN 40 MG/0.4 ML SYRINGE SUB-Q (08:52)
[2021-06-09] MEDS: allopurinoL 100 MG TABLET PO ×2 (08:52→16:50)
[2021-06-09] MEDS: POTASSIUM CHLORIDE 20 MEQ TABLET.ER 40 MEQ PO (08:52)
[2021-06-09] MEDS: clonazePAM (*CRX) 0.5 MG TABLET PO (08:53)
[2021-06-09] MEDS: TAMSULOSIN HCL 0.4 MG CAPSULE PO (08:53)
[2021-06-09] MEDS: FAMOTIDINE 20 MG/2 ML VIAL IV PUSH (08:53)
[2021-06-09] MEDS: FLUoxetine HCL 20 MG CAPSULE 40 MG PO (08:53)
[2021-06-09] MEDS: FLUTICASONE PROPIONATE 0.05% NA SPR 16 GM BTL (*BKC) 2 SPRAY NASAL (08:54)
[2021-06-09] MEDS: metOLazone 5 MG TABLET PO (08:55)
[2021-06-09] MEDS: FUROSEMIDE 40 MG TABLET PO (08:55)
[2021-06-09] MEDS: NICOTINE (*PBKC) 21 MG PATCH 1 PATCH TRANSDERM (08:56)
[2021-06-09] MEDS: UMECLIDINIUM BROMIDE 62.5 MCG ELLIPTA 1 PUFF INHALATION (09:00)
--- NOTE | 2021-06-09 15:01 | PM.DS ---
DS: Admitting Diagnosis Discharge Date 06/09/21 Admitting Diagnosis uncontrolled pain DS: Discharge Diagnosis Discharge Diagnosis (1) Small cell lung cancer: Code(s): C34.90 - Malignant neoplasm of unspecified part of unspecified bronchus or lung Status: Chronic Assessment and Plan: The patient missed her appointment for her Port-A-Cath. However the patient did get a midline here. 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 Also appears to have a breast mass. Dr. Carson was consulted. The patient also sees Dr. Alvarez. The patient was complaining of having severe pain mostly in the right upper chest. Pain medications were adjusted with benefit. (2) Hypoxia: Code(s): R09.02 - Hypoxemia Status: Acute Assessment and Plan: COVID negative. CTA chest showing no PE but occlusion of the right upper lobar pulmonary artery resulting from extrinsic compression of an enlarging, large right upper lobe mass which invades the right hilum and mediastinum consistent with primary adenocarcinoma with metastatic hilar, mediastinal and right supraclavicular lymphadenopathy. She also has more peripheral airspace disease in the right upper lobe which could represent secondary obstructive pneumonia and/or pulmonary edema. She is continuously on 4 L nasal cannula. Hypoxia related to COPD and lung cancer. 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 Patient remained stable. (4) COPD (chronic obstructive pulmonary disease): Code(s): J44.9 - Chronic obstructive pulmonary disease, unspecified Status: Chronic Assessment and Plan: Stable. We continued Incruse Ellipta. (5) CHF (congestive heart failure), NYHA class I: Code(s): I50.9 - Heart failure, unspecified Status: Chronic Assessment and Plan: Lung imaging as mentioned above. We continued with patient's diuretics from home. (6) Tobacco abuse: Code(s): Z72.0 - Tobacco use Status: Chronic Assessment and Plan: The patient still smokes 1-2 cigarettes a day. She was educated about the benefits of smoking cessation (7) Depression: Code(s): F32.A - Depression, unspecified Status: Chronic Assessment and Plan: Mood stable. We continued with home medication with clonazepam, divalproex, and fluoxetine. (8) Tachycardia: Code(s): R00.0 - Tachycardia, unspecified Status: Acute Assessment and Plan: CTA negative for PE. TSH 0.45 but free T4 is normal. Could possibly be related to her anxiety and pain. (9) Hypothyroidism: Code(s): E03.9 - Hypothyroidism, unspecified Status: Chronic Assessment and Plan: TSH is 0.45. We continued with her home dose of levothyroxine. DS: Summary Hospital Course Reason for hospitalization: 55yo female with lung cancer here for uncontrolled pain. Please see H&P for details Hospital Course: Please see above for details of hospital course Status at Discharge Cognitive/behavioral status at discharge: Stable Time Spent with Patient Time attestation: Total time spent providing and/or coordinating discharge services: 35 minutes Time spent: Greater than 30 minutes Exam Narrative: AF 98.1 92/54 119 16 99% 4L Gen - NARD HEENT/neck - facial and neck edema with fullness in the right supraclavicular area Chest - lungs clear anteriorly CV -tachycardic but regular. Telemetry showing sinus tachycardia Abd - soft, NT, +BS Ext - R>L upper extremity edema. trace pedal edema Skin - Warm and dry DS: Data Data Co
[2021-06-09] MEDS: ACETAMINOPHEN 325 MG TABLET 650 MG PO (16:49)
--- NOTE | 2021-06-09 17:49 | PDONCCN ---
HPI - Date of Consult Date/Time: 06/09/21 17:49 Requesting Physician: Brenda Pisano MD Primary Care Provider: Markos Urbina, PA - Consult Narrative Reason for consult: Small-cell lung cancer Narrative: Gogo Martell is a 55 year old female with recent diagnosis of small-cell lung cancer and started radiation therapy treatment on June 05. She came into our office just few days ago to start 1st round of chemotherapy but IV access was not established due to bilateral upper extremity edema. She now came into the hospital with generalized musculoskeletal pain. Patient has a history of drug abuse in the past. CT chest was performed that showed no evidence of pulmonary embolism. There was 2.6 x 1.6 cm mass at the left breast. There was large right upper lobe mass invading the right hilum and mediastinum consistent with primary lung cancer. She is complaining of generalized musculoskeletal pain and requesting more pain medication. Review of Systems - Review of Systems All systems reviewed & are unremarkable except as noted in HPI and bel - Neurologic Reports hearing normal [facility] Medical History: Medical History (Last Updated 06/08/21 @ 00:06 by Doreen Kumar NP) Amblyopia Left eye Anxiety Brain aneurysm CHF (congestive heart failure), NYHA class I COPD (chronic obstructive pulmonary disease) Depression Hepatitis C Hypothyroidism Metastatic disease Small cell lung cancer Tachycardia Tobacco abuse Surgical History: Surgical History (Last Reviewed 06/07/21 @ 23:49 by Doreen Kumar NP) Cataract extraction status Family History: Family History (Last Updated 06/07/21 @ 23:51 by Doreen Kumar NP) Mother Heart disease Congestive heart failure Father Healthy adult male Other Family history non-contributory - Social History Social History: Social History (Last Updated 06/07/21 @ 23:52 by Doreen Kumar NP) Alcohol Use: Alcohol intake: never Substance Use: Substance use: never Substance use type: does not use Others: Spiritual care concerns: No Smoking Status: Smoking status: Current every day smoker Tobacco type: cigarettes Smoking Pack-years: Smoking packs per day: 1 Smoking cigarettes per day: 20.0 Years smoked: 40 Smoking pack-years: 40.00 Comments: Additional smoking assessment comments: down to 1/2 pack Meds Home Medications Medication Instructions Recorded Confirmed Type Incruse Ellipta 1 inh INHALATION DAILY 03/26/21 06/08/21 History artificial tears solution 1 drp OPHTHALMIC (EYE) Q6-8H PRN 03/26/21 06/08/21 History cholecalciferol (vitamin D3) 50 mcg PO DAILY 03/26/21 06/08/21 History [Vitamin D3] cyclobenzaprine 10 mg PO TID PRN 03/26/21 06/07/21 History diphenhydramine HCl [Allergy 50 mg PO HS PRN 03/26/21 06/08/21 History (diphenhydramine)] fluoxetine 40 mg PO DAILY 03/26/21 06/08/21 History fluticasone propionate 2 spray INTRANASAL DAILY 03/26/21 06/08/21 History gabapentin 300 mg PO TID 03/26/21 06/08/21 History levothyroxine 125 mcg PO DAILY 03/26/21 06/08/21 History loperamide [Anti-Diarrheal 2 mg PO Q4H PRN 03/26/21 06/08/21 History (loperamide)] magnesium hydroxide [Milk of 15 ml PO DAILY PRN 03/26/21 06/08/21 History Magnesia] melatonin 10 mg PO HS PRN 03/26/21 06/08/21 History metolazone 5 mg PO DAILY 03/26/21 06/08/21 History nicotine 1 patch TRANSDERMAL DAILY 03/26/21 06/08/21 History omeprazole 20 mg PO DAILY 03/26/21 06/08/21 History potassium chloride 40 meq PO BID 03/26/21 06/08/21 History sennosides [senna] 8.6 mg PO DAILY PRN 03/26/21 06/08/21 History allopurinol 100 mg PO BID 60 Days #120 tablet 04/03/21 06/07/21 Rx alum-mag hydroxide-simeth 15 ml PO TID PRN 05/18/21 06/08/21 History [Gabrielle-Lanta] psyllium 1 packet PO DAILY PRN 05/18/21 06/08/21 History tramadol 50 mg PO TID PRN 05/18/21 06/08/21 History clonazepam 0.5 mg PO BID #30 tab
--- NOTE | 2021-06-09 19:56 | PC.NURSE ---
Patient discharged to a assisted today. Patient sent home with midline as per Dr. Ramos. Education was provided to patient and assisted director on midline care, drugs, follow-ups and had no further questions at this time.
== END 2021-06-09 17:30 | disposition home or self-care (01) ==
LOC: ANHED 12:52 → ANHIMU 06-08 01:18
PROVIDERS: Nurse Practitioner; Admitting Provider Internal Medicine; Emergency Provider Emergency Medicine; PCP Physician Assistant; Visit Provider Internal Medicine
DX: C34.11 Malignant neoplasm of upper lobe, right bronchus or lung (principal); C78.1 Secondary malignant neoplasm of mediastinum; R09.02 Hypoxemia; I67.1 Cerebral aneurysm, nonruptured; I50.9 Heart failure, unspecified; N63.20 Unspecified lump in the left breast, unspecified quadrant; M79.89 Other specified soft tissue disorders; R00.0 Tachycardia, unspecified; R06.00 Dyspnea, unspecified; Z99.81 Dependence on supplemental oxygen; J44.9 Chronic obstructive pulmonary disease, unspecified; F41.8 Other specified anxiety disorders; E03.9 Hypothyroidism, unspecified; H53.002 Unspecified amblyopia, left eye; F17.210 Nicotine dependence, cigarettes, uncomplicated; Z79.51 Long term (current) use of inhaled steroids; Z79.891 Long term (current) use of opiate analgesic; Z59.01 Sheltered homelessness; Z20.822 Contact with and (suspected) exposure to COVID-19
CPT/HCPCS: 36415; 71045; 71275; 80048; 80053; 80069; 82728; 83690; 83735; 84439; 84443; 84480; 85025; 85610; 85730; 93970; 94640; 96372; 96374; 96375; 96376; 99285; A9270; C1751; C9803; G0378; J1170; J1642; J1650; J7030; Q9967; U0003; U0005

== ENCOUNTER 2021-06-12 12:44 | Outpatient (CLI) | payer OTHER, SELFPAY ==
--- NOTE | ~2021-06-12 | US_ITS ---
EXAMINATION: US venous doppler UE DATE: 06/12/2021 13:31 INDICATION: Arm swelling TECHNIQUE: Olea scale images with and without compression and Doppler images of the right upper extre mity veins were obtained. Patient refused left arm examination and partial right arm examination. COMPARISON: 06/07/2021. FINDINGS: The right internal jugular vein, subclavian vein, axillary vein, and cephalic vein are patent. The pa tient terminated the examination for evaluation of additional right upper extremity veins. IMPRESSION: 1. Patent right upper extremity veins. No evidence of deep venous thrombosis. Limited study. Reviewed, dictated and finalized at location B. [employer] IMPRESSION: 1. Patent right upper extremity veins. No evidence of deep venous thrombosis. L imited study.
== END 2021-06-12 12:45 | disposition home or self-care (01) ==
LOC: ANHIMG 12:51
PROVIDERS: PCP Physician Assistant; Visit Provider Internal Medicine Hematology & Oncology
DX: M79.89 Other specified soft tissue disorders (principal)
CPT/HCPCS: 93970